=== PATIENT | female | born 1990 | race Caucasian/White ===

== ENCOUNTER 2022-12-03 10:20 | Outpatient (OUT) | payer OTHER, SELFPAY | END 2022-12-03 10:21 | disposition home or self-care (01) | LOC: PST 10:23 | PROVIDERS: PCP Family Medicine; Visit Provider Obstetrics & Gynecology | DX: Z01.818 Encounter for other preprocedural examination (principal); R87.613 High grade squamous intraepithelial lesion on cytologic smear of cervix (HGSIL) ==

== ENCOUNTER 2022-12-12 09:36 | Day surgery (SDC) | payer OTHER, SELFPAY ==
[2022-12-03 10:38] VITALS: BP 130/88; PULSE 74; RESP 14; TEMP 36.3; O2SAT 100; BMI 22.0
[2022-12-12] VITALS (11 sets, daily range): BP systolic 106–115; BP diastolic 63–78; PULSE 49–108; RESP 12–21; TEMP 36.1–36.3; O2SAT 95–100; BMI 21.9
[2022-12-12] MEDS: LACTATED RINGER'S SOLUTION 1,000 ML 50 ML IV (09:00)
[2022-12-12 10:11] LABS: Basophils Percent Auto 1.1 % (0.2-2.0); Eosinophils Absolute Auto 0.1 10^3/uL (0.0-0.7); Eosinophils Percent Auto 2.4 % (0.9-7.0); Hematocrit 41.6 % (36.0-48.0); Hemoglobin 14.1 g/dL (12.0-16.0); Immature Granulocytes Abs Auto 0.01 10^3/uL (0.00-0.03); Immature Granulocytes Pct Auto 0.3 % (0.0-0.5); Lymphocytes Absolute Auto 1.5 10^3/uL (1.2-3.8); Lymphocytes Percent Auto 40.6 % (20.5-60.0); Mean Corpuscular HGB Conc 33.9 g/dL (29.9-35.2); Mean Corpuscular Hemoglobin 29.3 pg (26.7-34.0); Mean Corpuscular Volume 86.3 fL (81.0-99.0); Mean Platelet Volume 8.8 fL (9.5-13.5); Monocytes Absolute Auto 0.2 10^3/uL (0.3-0.8); Monocytes Percent Auto 5.6 % (1.7-12.0); Neutrophils Absolute Auto 1.9 10^3/uL (1.4-6.5); Platelet Count 265 10^3/uL (150-450); Red Blood Count 4.82 10^6/uL (4.20-5.40); Red Cell Distribution Width 12.8 % (11.0-15.0); White Blood Count 3.7 10^3/uL (4.0-11.0)
[2022-12-12 11:02] LABS: HCG Quantitative <1 mIU/mL
--- NOTE | 2022-12-12 12:43 | P.ON_ITS ---
Brief Operative Note Date of procedure: 12/12/22 Pre-op diagnosis: cervical dysplasia Post-op diagnosis: same Procedure: NAME OF PROCEDURE: [leep ] PROCEDURE: Patient was taken back to the Operating Room where she was given general ane sthesia without difficulty. She was then placed in the dorsal lithotomy position. She was then prepped and draped in the normal sterile fashion. A weighted speculum was placed into the patient's vagina. The anterior lip of the cervix was identified and grasped with a single-tooth tenaculum. The patient's cervix was then copiously irrigated using vinegar.? Then, a Lugol Solution was also placed onto the patient's cervix which demonstrated increased uptake of the Lugol solution at the [3? ] o?clock and [?9 ] o?clock positions.? At that time, the LEEP portion of the procedure was performed, including both the [? 3] o?clock and [?9 ] o?clock positions. The ectocervix was sent out to Pathology. The patient's cervix was then coagulated using suction cautery. Excellent hemostasis was assured.? Monsel Solution was then placed onto the patient's cervix to help maintain adequate hemostasis. All instruments were removed from the patient's vagina. The anterior lip of the cervix demonstrated excellent hemostasis.? The patient tolerated the procedure well. Sponge, lap, and needle counts were correct x 2. The patient was taken to Recovery Room in stable condition. Anesthesia: CANDY Surgeon: Keshawn Tate Estimated blood loss (mL): 20 Pathology: other (ectocervical tissue) Condition: stable Disposition: PACU
[2022-12-12] MEDS: IODINE/POTASSIUM IODIDE 8 ML SOLUTION TOPICAL (13:11)
[2022-12-12] MEDS: FERRIC SUBSULFATE 8 ML SOLUTION TOPICAL (13:12)
--- NOTE | 2022-12-12 13:28 | PC.NURSE ---
Patient urinated , ate and drank while in phase I denies pain at this time for transfer to phase II.
== END 2022-12-12 13:52 | disposition home or self-care (01) ==
PROVIDERS: PCP Family Medicine; Visit Provider Obstetrics & Gynecology
PROC: (CPT 57522; principal; 2022-12-12 10:45)
DX: R87.613 High grade squamous intraepithelial lesion on cytologic smear of cervix (HGSIL) (principal)
CPT/HCPCS: 57522; 36415; 84702; 85025; 88307; J2704

== ENCOUNTER 2023-05-05 21:05 | Outpatient (REF) | payer OTHER, SELFPAY ==
[2023-05-12 08:07] LABS: HPV Aptima Negative (Negative); Pap IG (Image Guided) Note (.)
== END 2023-05-05 21:06 | disposition home or self-care (01) ==
LOC: LAB 21:05
PROVIDERS: PCP Family Medicine; Visit Provider Obstetrics & Gynecology
DX: R87.613 High grade squamous intraepithelial lesion on cytologic smear of cervix (HGSIL) (principal)
CPT/HCPCS: 87624; 87625; G0145

== ENCOUNTER 2023-10-20 20:51 | Outpatient (REF) | payer OTHER, SELFPAY ==
--- OUTSIDE RECORDS SUMMARY | 2023-10-20 20:59 | XMS_ITS | CCD ---
Author Organization [facility] Care Team Providers Care Pipe Finishing Supervisor Name Role Phone LAZARA ., DR CESAR Consulting Unavailable LAZARA ., DR CESAR Attending Unavailable LAZARA ., DR CESAR Admitting Unavailable LAZARA ., DR CESAR Consulting Unavailable LAZARA ., DR CESAR Attending Unavailable LAZARA ., DR CESAR Admitting Unavailable LAZARA ., DR CESAR Consulting Unavailable LAZARA ., DR CESAR Attending Unavailable LAZARA ., DR CESAR Admitting Unavailable LAZARA ., DR CESAR Consulting Unavailable ROBERTS, DR JESSICA Jaquez Primary Care Unavailable LAZARA ., DR CESAR Attending Unavailable LAZARA ., DR CESAR Admitting Unavailable LAZARA ., DR CESAR Consulting Unavailable ROBERTS, DR JESSICA Jaquez Primary Care Unavailable LAZARA ., DR CESAR Attending Unavailable LAZARA ., DR CESAR Admitting Unavailable ROBERTS, DR JESSICA Jaquez Primary Care Unavailable LAZARA ., DR CESAR Attending Unavailable LAZARA ., DR CESAR Admitting Unavailable KARASIK ., DR GOMES Consulting Unavailabl e ROBERTS, DR JESSICA Jaquez Primary Care Unavailable LAZARA ., DR CESAR Attending Unavailable LAZARA ., DR CESAR Admitting Unavailable ROBERTS, DR JESSICA Jaquez Primary Care Unavailable LAZARA ., DR CESAR Attending Unavailable LAZARA ., DR CESAR Admitting Unavailable LAZARA ., DR CESAR Consulting Unavailable ARMANDO, DR JESSICA Jaquez Primary Care Unavailable LAZARA ., DR CESAR Attending Unavailable LAZARA ., DR CESAR Admitting Unavailable TRUDY JULES Consulting Unavailable DEWAYNE AYALA Consulting Unavailable LAZARA ., DR CESAR Procedure Practitioner Unavail able ELISE ORTIZ Consulting Unavailable BIG SANDY, DR OLIVIA De La Paz Consulting Unavailable REQUEST, DR FREDIS LISTED Primary Care Unavaila ble LAZARA ., DR CESAR Attending Unavailable LAZARA ., DR CESAR Admitting Unavailable LAZARA ., DR CESAR Consulting Unavailable LAZARA ., DR CESAR Consulting Unavailable ARMANDO, DR JESSICA Jaquez Primary Care Unavailable LAZARA ., DR CESAR Attending Unavailable LAZARA ., DR CESAR Admitting Unavailable LAZARA ., DR CESAR Consulting Unavailable LAZARA ., DR CESAR Attending Unavailable LAZARA ., DR CESAR Admitting Unavailable ZIEBER, DR FCO Lynch Consulting Unavailable LAZARA ., DR CESAR Consulting Unavailable LAZARA ., DR CESAR Attending Unavailable LAZARA ., DR CESAR Admitting Unavailable FLORA PUENTE Attending Unavailable LAZARA, ARSENIO Attending Unavailable Problems Active Problems Problem Classification Problem Date Documented Date Episodic/Chronic Immunizations and screening for infectious disease (6 sources) Encounter for screening for human papillomavirus (HPV); Translations: [Encounter for screening for infections with a predominantly sexual mode of transmission] Onset: 10-24-2021 Episodic Menstrual disorders (4 sources) Irregular menstruation, unspecified; Translations: [IRREGULAR MENSTRUATION UNSPECIFIED] Onset: 10-19-2021 Chronic OB-related trauma to perineum and vulva (1 source) Second degree perineal laceration during delivery; Translations: [SECOND DEG PERINEAL LAC DUR DELIV] Onset: 05-21-2022 Episodic Other and delivery including normal (8 sources) Encounter for routine follow-up; Translations: [Encounter for full-term uncomplicated delivery] Onset: 12-19-2021 Episodic Other screening for suspected conditions (not mental disorders or infectious disease) (20 sources) Encounter for screening for malignant neoplasm of cervix; Translations: [Encounter for screening for Streptococcus B] Onset: 10-24-2021 Episodic Other upper respiratory infections (1 source) Streptococcal sore throat; Translations: [Streptococcal pharyngitis] 10-05-2023 Episodic Residual codes; unclassified (1 source) 39 weeks gestation of ; Translations: [39 WEEKS GESTATION OF ] Onset: 05-21-2022 Episodic Past or Other Problems Problem Classification Problem Date Documented Date Episodic/Chronic Other complications of (4 sources) Other specified related conditions, unspecified trimester; Translations: [OTH SPEC PREG RELATED COND UNS TRI] Onset: 02-26-2022 Episodic Other female genital disorders (1 source) Other specified noninflammatory disorders of vagina; Translations: [OTH SPEC NONINFLAMMATORY D/O VAGINA] Onset: 11-28-2021 Episodic Residual codes; unclassified (1 source) 28 weeks gestation of ; Translations: [28 WEEKS GESTATION OF ] Onset: 02-28-2022 Episodic Residual codes; unclassified (1 source) Unspecified blood type, Rh negative; Translations: [UNSPECIFIED BLOOD TYPE RH NEGATIVE] Onset: 03-01-2022 Episodic Residual codes; unclassified (1 source) 20 weeks gestation of ; Translations: [20 WEEKS GESTATION OF ] Onset: 12-25-2021 Episodic Results Test Name Value Interpretation Reference Range Facility No Panel InformationOrdered By: Manulea Corado on 10-05-2023 Quick Strep (POC) [facility] PAP ACOG PANEL 2: to on 08-14-2022 . . Normal [facility] Comment on above: Result Comment: Perf ormed at: WB Performed By: #### A FPMAT #### [facility] [address] [place] [address] Dr. Elda Caicedo Age Gdln ACOG Testing Normal [facility] Comment on above: Performed By: #### A FPMAT #### [facility] [address] [address] [address] Elda Caicedo DIAGNOSIS: Comment Abnormal [facility] Comment on above: Result Comment: EPIT HELIAL CELL ABNORMALITY. LOW GRADE SQUAMOUS INTRAEPITHELIAL LESION (LSIL). Performed at: WB Performed By: #### A FPMAT #### [facility] [address] [address] [address] Elda Caicedo Electronically signed by: Comment Normal [facility] Comment on above: Result Comment: Bossman Jimenez MD, Pathologist Performed at: WB Performed By: #### A FPMAT #### [facility] [address] [place] [address] Dr. Elda Caicedo Methodology: Comment [facility] Comment on above: Result Comment: This liquid based ThinPrep(R) pap test was screened with the use of an image guided system. Performed at: WB Performed By: #### A FPMAT #### [facility] [address] [place] [address] Dr. Elda Caicedo Note: Comment Normal [facility] Comment on above: Result Comment: The Pap smear is a screening test designed to aid in the detection of premalignant and malignant conditions of the uterine cervix. It is not a diagnostic procedure and should not be used as the sole means of detecting cervical cancer. Both false-positive and false-negative reports do occur. . Performed at: WB Performed By: #### A FPMAT #### [facility] [address] [place] [address] Dr. Elda Caicedo Pathologist Provided ICD10 Comment Normal [facility] Comment on above: Result Comment: [id number] Performed at: WB Performed By: #### A FPMAT #### [facility] [address] [place] [address] Dr. Elda Caicedo Performed by: Comment Normal [facility] Comment on above: Result Comment: Sriram Granados, Project Product Manager (ASCP) Performed at: CYTNE Performed By: #### A FPMAT #### [facility] [address] [place] [address] Dr. Elda Caicedo Reflex Criteria: Comment Normal [facility] Comment on above: Result Comment: The HPV DNA reflex criteria were not met with this specimen result therefore, no HPV testing was performed. . Performed at: WB Performed By: #### A FPMAT #### [facility] [address] [place] [address] Dr. Elda Caicedo Specimen adequacy: Comment Normal [facility] Comment on above: Result Comment: Sati sfactory for evaluation. Endocervical and/or squamous metaplastic cells (endocervical component) are present. Performed at: WB Performed By: #### A FPMAT #### [facility] [address] [place] [address] Dr. Elda Caicedo CBC AUTO DIFFon 05-02-2022 BASO # 0.0 103/ul Normal 0.0-0.1 [facility] Comment on above: Performed By: #### C BC #### [facility] [address] [place] [address] Dr. Elda Caicedo Basophils/100 WBC (Bld) 0.4 % Normal 0.2-2.0 [facility] Comment on above: Performed By: #### C BC #### [facility] [address] [place] [address] Dr. Elda Caicedo EO # 0.5 103/ul Normal 0.0-0.7 [facility] Comment on above: Performed By: #### C BC #### [facility] [address] [place] [address] Dr. lEda Caicedo Eosinophils/100 WBC (Bld) 4.6 % Normal 0.9-7.0 [facility] Comment on above: Performed By: #### C BC #### [facility] [address] [place] [address] Dr. Elda Caicedo Erythrocyte distribution width (RBC) [Ratio] 13.4 % Normal 11.0-15.0 [facility] Comment on above: Performed By: #### C BC #### [facility] [address] [place] [address] Dr. Elda Caicedo Hematocrit (Bld) [Volume fraction] 30.3 % Critically low 36.0-48.0 [facility] Comment on above: Performed By: #### C BC #### [facility] [address] [place] [address] Dr. Elda Caicedo Hemoglobin (Bld) [Mass/Vol] 10.0 g/dL Critically low 12.0-16.0 [facility] Comment on above: Performed By: #### C BC #### [facility] [address] [place] [address] Dr. Elda Caicedo IG # 0.11 10e3/ul Critically high 0.00-0.03 [facility] Comment on above: Performed By: #### C BC #### [facility] [address] [place] [address] Dr. Elda Caicedo IG % 1.1 % Critically high 0.0-0.5 [facility] Comment on above: Performed By: #### C BC #### [facility] [address] [place] [address] Dr. Elda Caicedo LYMPH # 1.2 103/ul Normal 1.2-3.8 [facility] Comment on above: Performed By: #### C BC #### [facility] [address] [place] [address] Dr. Elda Caicedo Lymphocytes/100 WBC (Bld) 11.7 % Critically low 20.5-60.0 [facility] Comment on above: Performed By: #### C BC #### [facility] [address] [place] [address] Dr. Elda Caicedo MANUAL DIFF REQ NO Normal [facility] Comment on above: Performed By: #### C BC #### [facility] [address] [place] [address] Dr. Elda Caicedo MCH (RBC) [Entitic mass] 29.0 pg Normal 26.7-34.0 [facility] Comment on above: Performed By: #### C BC #### [facility] [address] [place] [address] Dr. Elda Caicedo MCHC (RBC) [Mass/Vol] 33.0 g/dL Normal 29.9-35.2 [facility] Comment on above: Performed By: #### C BC #### [facility] [address] [place] [address] Dr. Elda Caicedo MCV (RBC) [Entitic vol] 87.8 fL Normal 81.0-99.0 [facility] Comment on above: Performed By: #### C BC #### [facility] [address] [place] [address] Dr. Elda Caicedo MONO # 0.6 103/ul Normal 0.3-0.8 [facility] Comment on above: Performed By: #### C BC #### [facility] [address] [place] [address] Dr. Elda Caicedo Monocytes/100 WBC (Bld) 5.5 % Normal 1.7-12.0 [facility] Comment on above: Performed By: #### C BC #### [facility] [address] [place] [address] Dr. Elda Caicedo NEUT # 7.7 103/ul Critically high 1.4-6.5 [facility] Comment on above: Performed By: #### C BC #### [facility] [address] [place] [address] Dr. Elda Caicedo Neutrophils/100 WBC (Bld) 76.7 % Critically high 43.0-75.0 [facility] Comment on above: Performed By: #### C BC #### [facility] [address] [place] [address] Dr. Elda Caicedo Platelet mean volume (Bld) [Entitic vol] 9.4 fL Critically low 9.5-13.5 [facility] Comment on above: Performed By: #### C BC #### [facility] [address] [place] [address] Dr. Elda Caicedo PLT 235 103/ul Normal 150-450 [facility] Comment on above: Performed By: #### C BC #### [facility] [address] [place] [address] Dr. Elda Caicedo RBC 3.45 106/ul Critically low 4.20-5.40 [facility] Comment on above: Performed By: #### C BC #### [facility] [address] [place] [address] Dr. Elda Caicedo WBC 10.0 103/ul Normal 4.0-11.0 [facility] Comment on above: Performed By: #### C BC #### [facility] [address] [place] [address] Dr. Elda Caicedo SCREENon 05-02-2022 SCREEN Negative Normal [facility] Comment on above: Performed By: #### F ETSCRN #### [facility] [address] [place] [address] Dr. Elda Caicedo CBC AUTO DIFFon 05-01-2022 BASO # 0.0 103/ul Normal 0.0-0.1 [facility] Comment on above: Performed By: #### A FPMAT #### [facility] [address] [place] [address] Dr. Elda Caicedo Basophils/100 WBC (Bld) 0.4 % Normal 0.2-2.0 [facility] Comment on above: Performed By: #### A FPMAT #### [facility] [address] [place] [address] Dr. Elda Caicedo EO # 0.1 103/ul Normal 0.0-0.7 [facility] Comment on above: Performed By: #### A FPMAT #### [facility] [address] [place] [address] Dr. Elda Caicedo Eosinophils/100 WBC (Bld) 1.5 % Normal 0.9-7.0 [facility] Comment on above: Performed By: #### A FPMAT #### [facility] [address] [place] [address] Dr. Elda Caicedo Erythrocyte distribution width (RBC) [Ratio] 13.2 % Normal 11.0-15.0 [facility] Comment on above: Performed By: #### A FPMAT #### [facility] [address] [place] [address] Dr. Elda Caicedo Hematocrit (Bld) [Volume fraction] 36.1 % Normal 36.0-48.0 [facility] Comment on above: Performed By: #### A FPMAT #### [facility] [address] [place] [address] Dr. Elda Caicedo Hemoglobin (Bld) [Mass/Vol] 12.1 g/dL Normal 12.0-16.0 [facility] Comment on above: Performed By: #### A FPMAT #### [facility] [address] [place] [address] Dr. Elda Ciacedo IG # 0.06 10e3/ul Critically high 0.00-0.03 [facility] Comment on above: Performed By: #### A FPMAT #### [facility] [address] [place] [address] Dr. Elda Caicedo IG % 0.8 % Critically high 0.0-0.5 [facility] Comment on above: Performed By: #### A FPMAT #### [facility] [address] [place] [address] Dr. Elda Caicedo LYMPH # 1.9 103/ul Normal 1.2-3.8 [facility] Comment on above: Performed By: #### A FPMAT #### [facility] [address] [place] [address] Dr. Elda Caicedo Lymphocytes/100 WBC (Bld) 26.1 % Normal 20.5-60.0 [facility] Comment on above: Performed By: #### A FPMAT #### [facility] [address] [place] [address] Dr. Elda Caicedo MANUAL DIFF REQ NO Normal [facility] Comment on above: Performed By: #### A FPMAT #### [facility] [address] [place] [address] Dr. Elda Caicedo MCH (RBC) [Entitic mass] 29.3 pg Normal 26.7-34.0 [facility] Comment on above: Performed By: #### A FPMAT #### [facility] [address] [place] [address] Dr. Elda Caicedo MCHC (RBC) [Mass/Vol] 33.5 g/dL Normal 29.9-35.2 [facility] Comment on above: Performed By: #### A FPMAT #### [facility] [address] [place] [address] Dr. Elda Caicedo MCV (RBC) [Entitic vol] 87.4 fL Normal 81.0-99.0 [facility] Comment on above: Performed By: #### A FPMAT #### [facility] [address] [place] [address] Dr. Elda Caicedo MONO # 0.5 103/ul Normal 0.3-0.8 [facility] Comment on above: Performed By: #### A FPMAT #### [facility] [address] [place] [address] Dr. Elda Caicedo Monocytes/100 WBC (Bld) 6.3 % Normal 1.7-12.0 [facility] Comment on above: Performed By: #### A FPMAT #### [facility] [address] [place] [address] Dr. Elda Caicedo NEUT # 4.7 103/ul Normal 1.4-6.5 [facility] Comment on above: Performed By: #### A FPMAT #### [facility] [address] [place] [address] Dr. Elda Caicedo Neutrophils/100 WBC (Bld) 64.9 % Normal 43.0-75.0 [facility] Comment on above: Performed By: #### A FPMAT #### [facility] [address] [place] [address] Dr. Elda Caicedo Platelet mean volume (Bld) [Entitic vol] 9.4 fL Critically low 9.5-13.5 [facility] Comment on above: Performed By: #### A FPMAT #### [facility] [address] [place] [address] Dr. Elda Caicedo PLT 302 103/ul Normal 150-450 [facility] Comment on above: Performed By: #### A FPMAT #### [facility] [address] [place] [address] Dr. Elda Caicedo RBC 4.13 106/ul Critically low 4.20-5.40 [facility] Comment on above: Performed By: #### A FPMAT #### [facility] [address] [place] [address] Dr. Elda Caicedo WBC 7.2 103/ul Normal 4.0-11.0 [facility] Comment on above: Performed By: #### A FPMAT #### [facility] [address] [place] [address] Dr. Elda Caiced[facility]17 SARS-CoV-2 (COVID-19) RNA SHARRI+probe Ql (Unsp spec) Not detected Normal NOT DETECTED [facility] Comment on above: Result Comment: When diagnostic testing is negative, the possibility of a false negative should be considered in the context of a patient's recent exposures and the presence of clinical signs and symptoms consistent with SARS-CoV-2. This test is not yet approved or cleared by the [place] FDA. When there are no FDA-approved or cleared tests available, and other criteria are met, FDA can make tests available under an emergency access mechanism called an Emergency Use Authorization (EUA). The EUA for this test is supported by the [place] of Health and Human Service's declaration that circumstances exist to justify the emergency use of in vitro diagnostics for the detection and/or diagnosis of the virus that causes COVID-19. This EUA will remain in effect for the duration of the COVID-19 declaration justifying emergency of IVDs, unless it is terminated or revoked by the FDA (after which the test may no longer be used). Performed By: #### A FPMAT #### [facility] [address] [place] [address] Dr. Elda Caicedo DRUG SCREEN RAPID (URINE)on 05-01-2022 AMP Negative Normal NEGATIVE [facility] Comment on above: Performed By: #### A FPMAT #### [facility] [address] [place] [address] Dr. Elda Caicedo BAR Negative Normal NEGATIVE [facility] Comment on above: Performed By: #### A FPMAT #### [facility] [address] [place] [address] Dr. Elda Caicedo BUP Negative Normal NEGATIVE [facility] Comment on above: Performed By: #### A FPMAT #### [facility] [address] [place] [address] Dr. Elda Caicedo BZO Negative Normal NEGATIVE [facility] Comment on above: Performed By: #### A FPMAT #### [facility] [address] [place] [address] Dr. Elda Caicedo TERE Negative Normal NEGATIVE [facility] Comment on above: Performed By: #### A FPMAT #### [facility] [address] [place] [address] Dr. Elda Caicedo CUT-OFFS SEE BELOW Normal [facility] Comment on above: Result Comment: AMP (Amphetamine): 500ng/mL, BAR (Barbituates): 200 ng/mL, BZO (Benzodiazepines): 150 ng/mL, BUP (Buprenorphine): 10 ng/mL, TERE (Cocaine): 150 ng/mL, mAMP (Methamphetamine): 500 ng/mL, MTD (Methadone): 200 ng/mL, OPI (Opiates): 100 ng/mL, OXY (Oxycodone): 100 ng/mL, PCP (Phencyclidine): 25 ng/mL, PPX (Propoxyphene): 300 ng/mL, THC (Cannabinoids): 50 ng/mL, TCA (Trycyclic Antidepressants): 300 ng/mL Performed By: #### A FPMAT #### [facility] [address] [place] [address] Dr. Elda Caicedo DRUG CUT HEADER DRUG CLASS TEST SYSTEM CUT-OFF CONCENTRATIONS ARE FOLLOWS: Normal [facility] Comment on above: Performed By: #### A FPMAT #### [facility] [address] [place] [address] Dr. Elda Caicedo mAMP Negative Normal NEGATIVE [facility] Comment on above: Performed By: #### A FPMAT #### [facility] [address] [place] [address] Dr. Elda Caicedo MTD Negative Normal NEGATIVE [facility] Comment on above: Performed By: #### A FPMAT #### [facility] [address] [place] [address] Dr. Elda Caicedo OPI Negative Normal NEGATIVE [facility] Comment on above: Performed By: #### A FPMAT #### [facility] [address] [place] [address] Dr. Elda Caicedo OXY Negative Normal NEGATIVE [facility] Comment on above: Performed By: #### A FPMAT #### [facility] [address] [place] [address] Dr. Elda Caicedo PCP Negative Normal NEGATIVE [facility] Comment on above: Performed By: #### A FPMAT #### [facility] [address] [place] [address] Dr. Elda Caicedo PPX Negative Normal NEGATIVE [facility] Comment on above: Performed By: #### A FPMAT #### [facility] [address] [place] [address] Dr. Elda Caicedo TCA Negative Normal NEGATIVE [facility] Comment on above: Performed By: #### A FPMAT #### [facility] [address] [place] [address] Dr. Elda Caicedo THC Negative Normal NEGATIVE [facility] Comment on above: Performed By: #### A FPMAT #### [facility] [address] [place] [address] Dr. 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 Furhter workup at [facility] Notes physicians request. ABO Rh Typing B Rh Negative Normal [facility] Comment on above: Performed By: #### T NS #### [facility] [address] [place] [address] Dr. Elda Caicedo GROUP B STREP CULTUREon 03-19 S. agalactiae Ag Ql (Unsp spec) Culture Observations: NEGATIVE FOR GROUP B STREPTOCOCCUS. Normal [facility] Comment on above: Performed By: #### C BC #### [facility] [address] [place] [address] Dr. Elda Caicedo TYPE AND SCREENon 02-26-2022 TYPE AND SCREEN Negative Normal [facility] Comment on above: Performed By: #### T NS #### [facility] [address] [place] [address] Dr. Elda Caicedo UA (CLEAN/CATCH) HELP DESK CONSULTANT/MICRO I F IND.on 02-26-2022 Bilirubin Ql (U) Negative Normal NEGATIVE [facility] Comment on above: Performed By: #### C BC #### [facility] [address] [place] [address] Dr. Elda Caicedo Clarity (U) CLEAR Normal CLEAR [facility] Comment on above: Performed By: #### C BC #### [facility] [address] [place] [address] Dr. Elda Caicedo Color (U) LT. YELLOW Normal YELLOW [facility] Comment on above: Performed By: #### C BC #### [facility] [address] [place] [address] Dr. Elda Caicedo Glucose Ql (U) Negative Normal NEGATIVE [facility] Comment on above: Performed By: #### C BC #### [facility] [address] [place] [address] Dr. Elda Caicedo Hemoglobin Ql (U) Negative Normal NEGATIVE [facility] Comment on above: Performed By: #### C BC #### [facility] [address] [place] [address] Dr. Elda Caicedo Ketones Ql (U) TRACE Abnormal NEGATIVE [facility] Comment on above: Performed By: #### C BC #### [facility] [address] [place] [address] Dr. Elda Caicedo LEUKOCYTES Negative Normal NEGATIVE [facility] Comment on above: Performed By: #### C BC #### [facility] [address] [place] [address] Dr. Elda Caicedo Nitrite Ql (U) Negative Normal NEGATIVE [facility] Comment on above: Performed By: #### C BC #### [facility] [address] [place] [address] Dr. Elda Caicedo pH (U) 6.0 [pH] Normal 5-9 [facility] Comment on above: Performed By: #### C BC #### [facility] [address] [place] [address] Dr. Elda Caicedo SPEC GRAVITY 1.010 Normal 1.005-<=1.025 [facility] Comment on above: Performed By: #### C BC #### [facility] [address] [place] [address] Dr. Elda Caicedo UA PROTEIN Negative Normal NEGATIVE/ TRACE [facility] Comment on above: Performed By: #### C BC #### [facility] [address] [place] [address] Dr. Elda Caicedo UR MICRO IND NOT INDICATED Normal [facility] Comment on above: Performed By: #### C BC #### [facility] [address] [place] [address] Dr. Elda Caicedo Urobilinogen Qn (U) 0.2 {Nathan'U}/dL Normal 0.2 - 1. 0 [facility] Comment on above: Performed By: #### C BC #### [facility] [address] [place] [address] Dr. Elda Caicedo GLUCOSE - 1HRon 02-15-2022 Glucose [Mass/Vol] 135 mg/dL Critically high 74-106 [facility] Comment on above: Performed By: #### G LU1HR #### [facility] [address] [place] [address] Dr. Elda Caicedo HEMOGRAM AND PLATELon 2021 Hematocrit (Bld) [Volume fraction] 34.1 % Critically low 36.0-48.0 [facility] Comment on above: Performed By: #### A FPMAT #### [facility] [address] [place] [address] Dr. Elda Caicedo Hemoglobin (Bld) [Mass/Vol] 11.5 g/dL Critically low 12.0-16.0 [facility] Comment on above: Performed By: #### A FPMAT #### [facility] [address] [place] [address] Dr. Elda Caicedo MCH (RBC) [Entitic mass] 31.3 pg Normal 26.7-34.0 [facility] Comment on above: Performed By: #### A FPMAT #### [facility] [address] [place] [address] Dr. Elda Caicedo MCHC (RBC) [Mass/Vol] 33.7 g/dL Normal 29.9-35.2 [facility] Comment on above: Performed By: #### A FPMAT #### [facility] [address] [place] [address] Dr. Elda Caicedo MCV (RBC) [Entitic vol] 92.7 fL Normal 81.0-99.0 [facility] Comment on above: Performed By: #### A FPMAT #### [facility] [address] [place] [address] Dr. Elda Caicedo PLT 233 103/ul Normal 150-450 [facility] Comment on above: Performed By: #### A FPMAT #### [facility] [address] [place] [address] Dr. Elda Caicedo RBC 3.68 106/ul Critically low 4.20-5.40 [facility] Comment on above: Performed By: #### A FPMAT #### [facility] [address] [place], [place] [id number] Dr. Elda Caicedo WBC 5.5 103/ul Normal 4.0-11.0 [facility] Comment on above: Performed By: #### A FPMAT #### [facility] [address] [place], [place] [id number] Dr. Elda Caicedo Consent Formson 01-03-2022 Consent Forms [id number] #[id number] [facility] US PREG ANATOMY SINGLEon US PREG ANATOMY SINGLE EXAMINATION: US P REG ANATOMY SINGLE HISTORY: anatomy study COMPARISON: No relevant comparison available. TECHNIQUE: Transabdominal sonographic examination was performed for obstetrical and evaluation. FINDINGS: Number: 1 Heart Rate: 154.0 bpm H.B. /min Amniotic Fluid Volume: Subjectively normal position: Transverse, head to the maternal right Placental Location: Anterior. Grade 0. Placental edge 4.5 cm from the os Cervix Length: 4.1 cm, closed Normally visualized anatomy: Cerebellum, choroid plexus, cisterna magna, lateral cerebral ventricles, orbits, midline falx, hard palate, four-chamber heart, RVOT, LVOT, stomach, kidneys, bladder, umbilical cord insertion into the abdomen, three-vessel cord, cervical spine, thoracic spine, lumbar spine, sacral spine, right upper extremity, left upper extremity, right lower extremity, left lower extremity Suboptimally visualized anatomy: None Abnormal: Mild renal pelviectasis, felt to be within normal limits BIOMETRY: BPD: 5.0 cm 21 weeks 1 days , 68% HC: 18.7 cm 21 weeks 0 days, 55% AC: 16.5 cm 21 weeks 4 days, 70% FL: 3.6 cm 21 weeks 3 days, 68% EFW:424.0 grams; 15 ounces, 83% FL/AC: 22.0 FL/BPD: 72.3 HC/AC: 1.1 GESTATIONAL AGE: Age by EDC: 20 weeks 5 days MICHEL by EDC: 05/08/2022 Age by current US: 21 weeks 2 days MICHEL by current US: 05/04/2022 IMPRESSION: Normal anatomy scan *Reference: [employer] Practice Guideline for the performance of Obstetric Ultrasound Examinations, February 15, 2007. Electronically authenticated by: OLIVIA LOTT Date: 2021-12-24 18:38 Normal [facility] AFP MATERNAL FOR SPINA BIFID Aon 12-23-2021 AFP MoM 1.56 Normal [facility] Comment on above: Performed By: #### A FPMAT #### [facility] [address] [address] [address] Elda Caicedo AFP Value 92.5 ng/mL Normal [facility] Comment on above: Performed By: #### A FPMAT #### [facility] [address] [id number] [address] Elda Caicedo AFP, Serum for Spina Bifida Report Normal [facility] Comment on above: Performed By: #### A FPMAT #### [facility] [address] [address] [address] lEda Caicedo Comment Comment Normal [facility] Comment on above: Result Comment: Marlo Blackwell, Ph.D., [facility] Director . References: Available Upon Request. . Multiples Of Median Cutoffs For AFP Elevations Dyer 2.5 Black 2.8 IDD 2.0 Twins 4.5 Abbreviation Definitions IDD - Insulin Dep Diabetes OSBR - Open Spina Bifida Risk . For further inquiries contact [facility] at [phone]. . This test was developed and its performance characteristics determined by [employer]. It has not been cleared or approved by the Food and Drug Administration. Performed By: #### A FPMAT #### [facility] [address] [address] [address] Elda Briscoe Age Collection Date 19.[address] [facility] Comment on above: Performed By: #### A FPMAT #### [facility] [id number] [address] Elda Caicedo Gestat, Age Based on MICHEL [facility] Comment on above: Result Comment: 04/18 Recalculations are not recommended when gestational dating by LMP and ultrasound are within 10 days. Performed By: #### A FPMAT #### [facility] [address] [address] [address] Elda Caicedo Insulin Dep Diabetes No Normal [facility] Comment on above: Performed By: #### A FPMAT #### [facility] [address] [address] [address] Elda Caicedo Interpretation Comment Normal [facility] Comment on above: Result Comment: Inte rpretation: Screen Negative . This result is screen negative for OSB. The AFP MoM calculated is based on the gestational age provided. MS-AFP can identify up to 80% of open neural tube defects. Closed neural tube defects and some open defects may not be detected by this test. This test does not screen for Down Syndrome or Trisomy 18. If screening for Down Syndrome or Trisomy 18 is desired, contact [employer] [facility] to discuss available options. The [employer] recommends amniocentesis be offered to women age 35 and older. Performed By: #### A FPMAT #### [facility] [address] [place] [address] Dr. Elda Caicedo [age] Normal [facility] Comment on above: Performed By: #### A FPMAT #### [facility] [address] [place] [address] Dr. Elda Caicedo Multiple Gestation No Normal [facility] Comment on above: Performed By: #### A FPMAT #### [facility] [address] [place] [address] Dr. Elda Caicedo OSBR Risk 1 IN 2331 Normal [facility] Comment on above: Performed By: #### A FPMAT #### [facility] [address] [address] [address] Elda Caicedo PDF . Normal [facility] Comment on above: Performed By: #### A FPMAT #### [facility] [address] [place] [address] Dr. Elda Caicedo Race Normal [facility] Comment on above: Performed By: #### A FPMAT #### [facility] [address] [place] [address] Dr. Elda Caicedo Test Results: Negative Normal [facility] Comment on above: Performed By: #### A FPMAT #### [facility] [address] [place] [address] Dr. Elda Caicedo Pap IG,rfx Aptima HPV all pt hon 12-05-2021 . . Normal [facility] Comment on above: Performed By: #### A FPMAT #### [facility] [address] [place] [address] Dr. Elda Caicedo DIAGNOSIS: Comment Abnormal [facility] Comment on above: Result Comment: EPIT HELIAL CELL ABNORMALITY. ATYPICAL SQUAMOUS CELLS OF UNDETERMINED SIGNIFICANCE (ASC-US). Performed By: #### A FPMAT #### [facility] [address] [place] [address] Dr. Elda Caicedo Electronically signed by: Comment Normal [facility] Comment on above: Result Comment: Rosalinda Browning MD, Pathologist Performed By: #### A FPMAT #### [facility] [address] [place] [address] Dr. Elda Caicedo HPV Aptima Negative Normal Negative [facility] Comment on above: Result Comment: This nucleic acid amplification test detects fourteen high-risk HPV types (16,18,31,33,35,39,45,51,52,56,58,59,66,68) without differentiation. Performed By: #### A FPMAT #### [facility] [address] [place] [address] Dr. Elda Caicedo Methodology: Comment Normal [facility] Comment on above: Result Comment: This liquid based ThinPrep(R) pap test was screened with the use of an image guided system. Performed By: #### A FPMAT #### [facility] [address] [place] [address] Dr. Elda Caicedo Note: Comment Normal [facility] Comment on above: Result Comment: The Pap smear is a screening test designed to aid in the detection of premalignant and malignant conditions of the uterine cervix. It is not a diagnostic procedure and should not be used as the sole means of detecting cervical cancer. Both false-positive and false-negative reports do occur. . Performed By: #### A FPMAT #### [facility] [address] [place] [address] Dr. Elda Caicedo Pathologist Provided ICD10 Comment Normal [facility] Comment on above: Result Comment: [id number]. [id number] Performed By: #### A FPMAT #### [facility] [address] [place] [address] Dr. Elda Caicedo Performed by: Comment Normal [facility] Comment on above: Result Comment: Cind jeffrey Vera, Project Product Manager (ASCP) Performed By: #### A FPMAT #### [facility] [address] [place] [address] Dr. Elda Caicedo Recommendation: Comment Abnormal [facility] Comment on above: Result Comment: Sugg est follow up as clinically appropriate. Performed By: #### A FPMAT #### [facility] [address] [place] [address] Dr. Elda Caicedo Reflex Criteria: Comment Normal [facility] Comment on above: Result Comment: See below for HPV testing results. . Performed By: #### A FPMAT #### [facility] [address] [place] [address] Dr. Elda Caicedo Specimen adequacy: Comment Normal [facility] Comment on above: Result Comment: Sati sfactory for evaluation. No endocervical component is identified. Performed By: #### A FPMAT #### [facility] [address] [place] [address] Dr. Elda Caicedo CHLAMYDIA/GONOCOCCUS SHARRI (SW AB/URINE/PAPon 11-30-2021 Chlamydia trachomatis, SHARRI Negative Normal Negative [facility] Comment on above: Performed By: #### C BC #### [facility] [address] [place] [address] Dr. Elda Caicedo Neisseria gonorrhoeae, SHARRI Negative Normal Negative [facility] Comment on above: Performed By: #### C BC #### [facility] [address] [place] [address] Dr. Elda Caicedo VAGINITIS/VAGINOSIS DNA PROB Richard 11-29-2021 Dodie species Negative Normal Negative [facility] Comment on above: Performed By: #### V AGINT #### [facility] [address] [place] [address] Dr. Elda Caicedo Gardnerella vaginalis Negative Normal Negative [facility] Comment on above: Performed By: #### V AGINT #### [facility] [address] [place] [address] Dr. Elda Caicedo Trichomonas vaginalis Negative Normal Negative [facility] Comment on above: Performed By: #### V AGINT #### [facility] [address] [place] [address] Dr. Elda Caicedo HEP B SURFACE ANTIGEN SCREEN on 10-20-2021 HBsAg Screen Negative Normal Negative [facility] Comment on above: Performed By: #### C BC #### [facility] [address] [place] [address] Dr. Elda Caicedo HEPATITIS C VIRUS AB W/ REFL EX QUANTon 10-20-2021 HCV AB <0.1 Normal 0.0-0.9 [facility] Comment on above: Performed By: #### C BC #### [facility] [address] [place] [address] Dr. Elda Caicedo Interpretation: Comment Normal [facility] Comment on above: Result Comment: Nega tive Not infected with HCV, unless recent infection is suspected or other evidence exists to indicate HCV infection. Performed By: #### C BC #### [facility] [address] [place] [address] Dr. Elda Caicedo HIV 1 AND 2 WITH REFLEXon HIV Screen 4th Generation wRfx Non-Reactive Normal Non Reactive [facility] Comment on above: Result Comment: HIV Negative HIV-1/HIV-2 antibodies and HIV-1 p24 antigen were NOT detected. There is no laboratory evidence of HIV infection. Performed By: #### C BC #### [facility] [address] [place] [address] Dr. Elda Caicedo RPR QUANTon 10-20-2021 Rapid Plasma Reagin, Quant Non-Reactive Normal NonRea<1:1 [facility] Comment on above: Result Comment: Gerri tirado Note: This test does not meet current guidelines for screening and diagnosis of syphilis. This test is intended for following treatment response in patients being treated for syphilis infection. To screen for syphilis infection, a reflex cascade that includes both RPR and a treponema-specific assay should be utilized, such as Treponema pallidum (Syphilis) Screening [place] (140932) or Rapid Plasma Reagin (RPR) Test With Reflex to Quantitative RPR and Confirmatory Treponema pallidum Antibodies (836706). Performed By: #### A FPMAT #### [facility] [address] [place] [address] Dr. Elda Caicedo RUBELLA AB IGGon 10-20-2021 Rubella Antibodies, IgG 5.69 index Normal Immune >0.99 [facility] Comment on above: Result Comment: Non- immune <0.90 Equivocal 0.90 - 0.99 Immune >0.99 Performed By: #### C BC #### [facility] [address] [place] [address] Dr. Elda Caicedo CBC AUTO DIFFon 10-19-2021 BASO # 0.0 103/ul Normal 0.0-0.1 [facility] Comment on above: Performed By: #### C BC #### [facility] [address] [place] [address] Dr. Elda Caicedo Basophils/100 WBC (Bld) 0.5 % Normal 0.2-2.0 [facility] Comment on above: Performed By: #### C BC #### [facility] [address] [place] [address] Dr. Elda Caicedo EO # 0.1 103/ul Normal 0.0-0.7 [facility] Comment on above: Performed By: #### C BC #### [facility] [address] [place] [address] Dr. Elda Caicedo Eosinophils/100 WBC (Bld) 1.4 % Normal 0.9-7.0 [facility] Comment on above: Performed By: #### C BC #### [facility] [address] [place] [address] Dr. Elda Caicedo Erythrocyte distribution width (RBC) [Ratio] 12.8 % Normal 11.0-15.0 [facility] Comment on above: Performed By: #### C BC #### [facility] [address] [place] [address] Dr. Elda Caicedo Hematocrit (Bld) [Volume fraction] 39.1 % Normal 36.0-48.0 [facility] Comment on above: Performed By: #### C BC #### [facility] [address] [place] [address] Dr. Elda Caicedo Hemoglobin (Bld) [Mass/Vol] 13.2 g/dL Normal 12.0-16.0 [facility] Comment on above: Performed By: #### C BC #### [facility] [address] [place] [address] Dr. Elda Caicedo IG # 0.02 10e3/ul Normal 0.00-0.03 [facility] Comment on above: Performed By: #### C BC #### [facility] [address] [place] [address] Dr. Elda Caicedo IG % 0.5 % Normal 0.0-0.5 [facility] Comment on above: Performed By: #### C BC #### [facility] [address] [place] [address] Dr. Elda Caicedo LYMPH # 1.5 103/ul Normal 1.2-3.8 [facility] Comment on above: Performed By: #### C BC #### [facility] [address] [place] [address] Dr. Elda Caicedo Lymphocytes/100 WBC (Bld) 34.9 % Normal 20.5-60.0 [facility] Comment on above: Performed By: #### C BC #### [facility] [address] [place] [address] Dr. Elda Caicedo MANUAL DIFF REQ NO Normal [facility] Comment on above: Performed By: #### C BC #### [facility] [address] [place] [address] Dr. Elda Caicedo MCH (RBC) [Entitic mass] 29.9 pg Normal 26.7-34.0 [facility] Comment on above: Performed By: #### C BC #### [facility] [address] [place] [address] Dr. Elda Caicedo MCHC (RBC) [Mass/Vol] 33.8 g/dL Normal 29.9-35.2 [facility] Comment on above: Performed By: #### C BC #### [facility] [address] [place] [address] Dr. Elda Caicedo MCV (RBC) [Entitic vol] 88.5 fL Normal 81.0-99.0 [facility] Comment on above: Performed By: #### C BC #### [facility] [address] [place] [address] Dr. Elda Caicedo MONO # 0.3 103/ul Normal 0.3-0.8 [facility] Comment on above: Performed By: #### C BC #### [facility] [address] [place] [address] Dr. Elda Caicedo Monocytes/100 WBC (Bld) 5.7 % Normal 1.7-12.0 [facility] Comment on above: Performed By: #### C BC #### [facility] [address] [place] [address] Dr. Elda Caicedo NEUT # 2.5 103/ul Normal 1.4-6.5 [facility] Comment on above: Performed By: #### C BC #### [facility] [address] [place] [address] Dr. Elda Caicedo Neutrophils/100 WBC (Bld) 57.0 % Normal 43.0-75.0 [facility] Comment on above: Performed By: #### C BC #### [facility] [address] [place] [address] Dr. Elda Caicedo Platelet mean volume (Bld) [Entitic vol] 8.7 fL Critically low 9.5-13.5 [facility] Comment on above: Performed By: #### C BC #### [facility] [address] [place] [address] Dr. Elda Caicedo PLT 272 103/ul Normal 150-450 [facility] Comment on above: Performed By: #### C BC #### [facility] [address] [place] [address] Dr. Elda Caicedo RBC 4.42 106/ul Normal 4.20-5.40 [facility] Comment on above: Performed By: #### C BC #### [facility] [address] [place] [address] Dr. Elda Caicedo WBC 4.4 103/ul Normal 4.0-11.0 [facility] Comment on above: Performed By: #### C BC #### [facility] [address] [place] [address] Dr. Elda Caicedo CULTURE URINEon 10-19-2021 CULTURE URINE Culture Observations: LIGHT GROWTH OF MIXED GENITAL TONYA. NO POTENTIAL PATHOGENS SEEN. Normal [facility] Comment on above: Performed By: #### U RCX #### [facility] [address] [place] [address] Dr. Elda Caicedo GLYCOHEMOGLOBIN A1Con 2021 ADA RECOMMENDATION SEE BELOW Normal [facility] Comment on above: Result Comment: ADA RECOMMENDED LIMIT 4.0 - 6.0 ADA THERAPEUTIC TARGET < 7.0 ACTION SUGGESTED > 7.0 Performed By: #### A 1C #### [facility] [address] [place] [address] Dr. Elda Caicedo Glucose [Mass/Vol] 100 mg/dL Normal [facility] Comment on above: Performed By: #### A 1C #### [facility] [address] [place] [address] Dr. Elda Caicedo HbA1c (Bld) [Mass fraction] 5.1 % Normal 4.5-6.2 [facility] Comment on above: Performed By: #### A 1C #### [facility] [address] [place] [address] Dr. Elda Caicedo TYPE AND SCREENon 10-19-2021 TYPE AND SCREEN Negative Normal [facility] Comment on above: Performed By: #### C BC #### [facility] [address] [place] [address] Dr. Elda Caicedo US PREG TVon 10-03-2021 US PREG TV EXAMINATION: US PREG TV HISTORY: Missed period COMPARISON: No relevant comparison available. FINDINGS: GESTATIONAL SAC: Present and normal appearing. POLE: Present and normal appearing. YOLK SAC: Present. CARDIAC: Present. UTERUS: Normal size and appearance. OVARIES: Right: Normal. Left: Normal. CERVIX: 4.3 cm in length and closed. CUL-DE-SAC: Normal. OTHER: None. AGE BY LMP: 9 weeks, 0 days MICHEL BY LMP: 05/08/2022 AGE BY US CRL: 9 weeks, 4 days MICHEL BY US CRL: 05/04/2022 IMPRESSION: 1. Single live intrauterine . Electronically authenticated by: FCO WYLIE Date: 2021-10-03 14:37 Normal [facility] Coding Summaryon 08-26-2021 Coding Summary HTMLBase 64 TqhvfkrlYPm1rVf+PGhl YWQ+ZD2IZGChC96wdLGv jS7TL1tRKS5LGQVDWHQF KY4KIT1yxPG9XPkdU7Ks biAv QkfojUCdJS71LXl2VZO7 pSehSYnyjB9obDMjF5g9 YbMiVR08tM12VFhmRDJf TdL6LdHfyiszsICf T7qkLbYphRWqZwl+PHRh YmxlIHdpZHRoPScxMDAl PbVrvWnjPO4xHo3zREXc LWNvbGxhcHNlOiBj k7pjKWFhOQnzUB1bmZxa S2VjmFG9XIKke2t2Jq08 dHI+JZLxDCT7mAvxYUlf v073KrOnb3foKYS0 qKYnCXztDSM0T18fe8F1 OIWhGBVmLJB9bUS4bE1b yBkxvqnaC8PhbOAhVcS3 VGE3nUFicY0jzAku jpaovL0fGxw+B34TGG1F QHBYSB3WGrr2K7TrMugz dHI+VI92RMBwNQ73fYKo sXAia0oxuXg5QcWd JYJaORH4iLodVExdy4Yy XPFuW68nxTHwl4L0VSHc lIbmkBKeApWmwMF5yP7t ORvdqhmtd2kdoqlb Hehfr1vgki67tN17Q90v FGekJHUlRZR9RCQaWWHl sZylbt3wuD0gQg0+IDxj r8ngu7nkrKh2BlLq FEMatoHcmFihFCR0g0Ez Jw72K9DarLrjq1IkTub1 ks62tFQdd9V8vME6NAzi XUKraT4vDKmwRvC5 WMLfEtWnxY77sDVlMHuc Ma6xeZjaeLjdEU0vUDSz qdkqWAHrtJ5cHYOjxOGi aMrbUM4hHGEfbvvg o585RjXbBIG3SFQjmCNr P8XouL8uMxTlPXFkYJRp G4RhnCZsTQbeT465JZnv JyP4SBFmqlFvP9Qu FOYsoShkNbZ1s4T8Rw3O k1TdefnnCWR0FZpbIBR6 EiFiXxYdFnD5O9KhQxg9 YGOsoHehLU3rX2Wv WGSjlbsckxxvqJV6WWRq BHEsoN97uABeRApvAi9d u4N7x310VBTnCPQtxP64 Up9vmObtEOVjqVVH nC7bbtfnh8clprjpGpNz BYJeHKb2ZDq9FPXlnIag BqJwGYQ5DxW5PSO9xUAz fD3edSvkrbqwvB7q Oyc+R63geQ2cSLT9DVF8 nsjlPYPbczIwPI99BO48 J9WmBinihSQoyKG+PGRp snKnwYqhHH8dHcEv s5jfx8RyKFnxN8QmRIUr VYggKix0KCQcNKT4rUQ2 hT3uKNQfDWxhx8U9mNS0 T2WlyuXlkd7nr4by NKPvGTaiM78fcDVle3K1 EIYzaBK7DHVmpQbvXjDw eC78Elf+LOBabTmki4Pp Jhqgc6ptc1nucAm4 IjMwJSIgdmFsaWduPSJ0 w9BzSn62U55vVQknAOHv FFDuABYjOTVfaBfugc7s eG9uQz8+PGNvbCB3 pGF9vA0wUHIeKdI1ZNia U428UvAowRCyTmyhg6kd z9pefAl0AoAwHUTzovMd nIobGJB3f3NbJs77 V09gTUtqMERaEYUxDXJh PCAtnEfhns2nwE2vFq2+ XH1me5lxgl34jN94rHX+ ODGwGYJ0jYppDLxn APYcwH8aRIdgEcK0OGCr UcKtrB35gXSfDSpkKr0n fFnmvJtbQZ6iNEQpaolb q782UkMmf1gpRVUb oYLbKUitVDM3C56jx0D7 CHXnIAPeEUW8dHO6yK9z bGlnbjogbGVmdDsgdmVy lSknZYusORuaD961 IHRvcDsnPlBhdGllbnQg MgZpWHt3M8UmXbs7REOq mWoyVF0taNMuXQzzKq8s rSytjIgcQR4pKVOv wsyke440OaEct8nlNJAo zBYrCBthEAV6V13at3X4 OIQtTSCvPPQ0lGL6wO6x bGlnbjogbGVmdDsg brJbrNdcHFyiBXyzO710 IHRvcDsnPkJpcnRoIERh vIN9ZM63CS14yEKfp8Q8 xWP7W5SaGJIeqkll adwdyYW2CTZbJOEpwN89 Ed5jkTriCc0jQHFzIMN2 LEVckMFnU9BoyE7eOgBh QSFgXXXvD2HjqHWy PAnvM477PGwgSdP2TZGu ebSkF7CuEOGlkPlxAkG2 z7O7Rf7AM3R9OS40YH34 aKRvj9P2vCT1U3Bn LBTbdmuhhpdijAF9EXZv IBAqkM25Mk4agFgjQs4d IEXuQPT2VVOcwLMbT5Hv tK2yYhDoSNUxUOBm S6DpbOJcZGyiI839KGzd LvF0UZHzqlLlV9FgQBVk oBtzGqO1n0C9Fj2TCMb6 OK03AQ81vAFnl6U5 nCQ6C8IxKFIrtbwiideg hOB7IQMhVUYxlE75Kv6x kOemXz1qBEWbNEJ7DHGf gURdG3YivM0hUrXs JLOwFMKbO9JaxSEnEZun F396AFinPhM8KWKvasNx F7XtQILczNexAeO1i2D6 Rm8ULNCqFO16VIN2 kFN9KA95YV53H9GiXkvm dGFibGU+PHRhYmxlIHdp ZHRoPScxMDAlJyBzdHls AU4wUy0gXWBfBAHp tYjtgLYxCvQqf1kjPKZd LJawJC4sbGjiH0UmlVP9 ZHYgm3b1Hi98K49nL4Rs dXA+QNOedFN2kKA6 fT4zGeAdIxJ6HXcbI569 HtZttVVtIvnos0vqi1ad eAe2RdX5DEWjxgAllZqe MWQ8p8TdFq47T91t IHdpZHRoPSIxNSUiIHZh kYplez0afB6sGq6+PGNv bYX8hOS2gT9bIcMuUiX9 VTucR914PwEheNPg Ciwsy9nka3qacOd6GzDa NPLozmQyhCxaMHF4w5Bl Qk58K5WggJtwz6ZjLmw6 um90lABmo7N8gWE0 K9JcAOGezglqcWKrxXev BK4sBDPwtyvlKVMliK7o ZUObV6w5MiWpGfH7KVvi H9XbqaE3VRUrqQMq WPylXOW9O56ez9E3RGDv GDMyHLL9bFU5nD7hlPli bjogbGVmdDsgdmVydGlj LNhkKEszQ140VWVg cVoiSGNrjO4kWRTnoWQy fPnkQK6cAFObjqdwXzUU GGVPAmBNKXdeCH6RVyxV DJVMLZZELU21IQ24 yWWeb7Y8hMB9K8BpGOJm srktonihiEN5GLRgGSEs qE03kGIeZGsvUd2vd4R7 r053SKBaORKhgJ51 Wb6bpWqhQTRhfKAQmL0a ztdny3tsuiiaPnFqQBJj RAe2IRy1BTZakOcnZtBw PHU1NlW0JYM8lFTe vF9dhKzctdpqtA9oPit+ BUsyAHNwAZl8LxlxpSR+ JTJsSAB6oHfsVLvpEVXw mO6zKCFxA1d0RlRm VaH8QVuaP0CzQSHjpfso Wc37hX9lZfVnSqE5BLfh G1TtpoL1GZAomVPtZMkc TAW1A20wu8V0BMRq INUxDCD3xWI7rE9huPfi bjogbGVmdDsgdmVydGlj OYenEYfaL228SGHwoJld RiV7AGfxHCTuBH02 ZV72gJKwv5X1zAX2S9Li HALmyavyrpepkRM4PLEn EKJweR64vXPqWApkCj6c v5K9k347PQLcKBRe mA25Ac4ifZxeUDXlsIGL jK6eqlxym5pwjyqrQrMm PBVvDOy0EKg9GAPwnSps AbPhNSP8MkJ9TEY8 pSFkbL3mhImivdvbfA5a Oyc+QzPAQGdJAK69FK03 xNXra9N9zBD5S9YtMVPj ineqlwypxXL4BMWg FMIpoA28zAFuKBqtJs4w n0V9f902UYPtKCFjlT21 Gm8cxKceXHQmxQVMsD9r sccpp5mxqxraMsIj EXEiHGb2JKb7YEEqqLeu FmAsNFA3GdY7CWO6pLTj bV3djHwhbddihI8jKpn+ T5P2Q7GkTpqihNJ+ YD90HTAzOK71fOEijBNp y0wlqAf2PdLcZHLkIYZ0 aQfwPPlqa4CsYLZrK22o iLMfp3N5NSTpxAsy mIOiYqZgzGM9xY4uINyx xqgvw6cipwcfMzvyj9qe il71oF05J19hJWlmSFBj PSIzMCUiIHZhbGln dl0uzM8iKd8+PGNvbCB3 nXG2rW9bXoYnHiA4EWfz Y413AlAsoWKaShyiz3ek u3nxeRl4WaKbTEZz rvNaaWqsGVP8b8OjYk16 B50oESahGURqMIUzAIPx RJTvqOolqm8maQ2nKf0+ QL6jy9oayg92gM95 dHI+BTEvCKI9nZijZPys AGCxyY6dHMlmLmJ3AAYi KyIxfQ45xKLvWLgcBb4b mIeoyLfaGZ9gUDRd xspvl013LwEoc4ocBTQk rULkYWmoGLI5C16ho3L7 QYWoXACoOQF2fYO4yT2x bGlnbjogbGVmdDsg cbUhnLakEUmdPJucS221 PUQkqQxqRxQfjDEqT4ip qwADOM4rOxxxlXB+PHRk QWA2eEayOEiiJHOh qC1nCCMtC4v0GjLbJzX2 GFczD9UwsbJ0JMRbtCOm MPEguZQCyY4wxixkn1nz cjogIzAwMDAwMDt0 HUl3KJWrpJiuGoEaBVK1 TgO3XIJ3kSXrvW2ivGsj dsptuD2kKfm+RklOOjwv dGQ+LEOiWPA7nYkq GKoqAUTbeU3bSTTpX1z5 JhEzFoH3KQktJ3TsknK4 NQElwYOtJPCzdDQMuQ8m cryec7lnsidpEkQz MNLhMIy6FOm3GBEqoKso ZlXyNYL9EhE3MLN9zHVe nU7zkVhanbkozE9oSyn+ TVJOOjwvdGQ+PHRk YUN1hDmlZDtlGYXomO0o GOBcE9h7AlGlSmF7PUnf K0PjaiM5FULigTHbEDBd kSCKiH4cksvpi7bq uzqhUrRvBKZaNRi1BLw7 EBYyaSbeZmQnNWB3GcV7 QBF8fHMrpC1hsFgthaub mV5nKke+GKB8LYN5 TS98NQ89R2PgKmaluJBn bGU+PHRhYmxlIHdpZHRo KLpwVJLoFkPifOucGE7s Gi4cCXCfCXYhdHub cHN (more content not included)... Normal [facility] ED Clinical Summaryon 2021 ED Clinical Summary [facility] ? Urgent Care [address] [place], [place] [id number] Clinical Summary PERSON INFORMATION Name: JODI COLORADO Age: 30 Years Sex: FEMALE : 1990 MRN: Acct#: Visit Reason: UC - Eye Redness; UC - Eye Redness; RIGHT EYE IRRITATION Arrival: 08/19/2021 12:52:37 Discharge: 08/19/2021 13:50:00 LOS: 000 00:58 Check In: 08/19/2021 12:52:37 Checkout: 08/19/2021 13:50:00 Address: [address] [place], [place] [address] [address] PCP: Jessica Roberts MD PROVIDER INFORMATION Provider Role Assigned Unassigned Lesvia Hills MAIL CENSOR Nurse 08/19/2021 12:54:31 Ko Desir ED PA 08/19/2021 12:57:58 VITALS INFORMATION Vital Sign Triage Latest Temperature Tympanic Temperature Temporal Artery Pulse Rate O2 Sat 98 % 98 % Respiratory Rate Blood Pressure /68 mmHg /68 mmHg MEDICAL INFORMATION Medications Given: Allergy Information: No Known Medication Allergies PHYSICIAN DOCUMENTATION DISCHARGE INFORMATION: Discharge Disposition: Home Discharge Location: Home PATIENT EDUCATION INFORMATION Instructions: Bacterial Conjunctivitis, Adult, Crpt-dd-Vilf Follow-Up: With: Address: When: Jessica Roberts [address] [place] [address], [place] [address] Business (1) Comments: Begin on the the antibiotic drops take as written until gone If the symptoms persist or fail to resolve call to schedule follow up with Dr. Quezada glass calibrator [phone] office located at [address] [place] [address], otherwise follow-up with your primary care provider in 3-5 days Exercise good hygiene such as frequent handwashing, wiping off door handles Try not to touch the eye or near the eye. Can wash around the eye with warm water and no tears shampoo 3-4 times daily DIAGNOSIS: Right conjunctivitis Patient Understands: Yes - Patient/family/careg iver verbalizes understanding of instructions given Comment: Normal [facility] ED Patient Summaryon 022 ED Patient Summary [facility] ? Urgent Care [address] [place] [address] PATIENT DISCHARGE INSTRUCTIONS Patient Information Name: JODI COLORADO Age: 30 Years Date of : 1990 Reason For Visit: UC - Eye Redness; UC - Eye Redness; RIGHT EYE IRRITATION Arrival Time: 08/19/2021 12:52:37 Primary Care Physician: Jessica Roberts MD Attending Physician: Ko Desir Comment: Patient Education With: Address: When: Jessica Roberts [address] [place] [id number] Business (1) Comments: Begin on the the antibiotic drops take as written until gone If the symptoms persist or fail to resolve call to schedule follow up with Dr. Quezada glass calibrator [phone] office located at [address] [place] [address], otherwise follow-up with your primary care provider in 3-5 days Exercise good hygiene such as frequent handwashing, wiping off door handles Try not to touch the eye or near the eye. Can wash around the eye with warm water and no tears shampoo 3-4 times daily Bacterial Conjunctivitis, Adult Bacterial conjunctivitis is an infection of your conjunctiva. This is the clear membrane that covers the white part of your eye and the inner part of your eyelid. This infection can make your eye: ? Red or pink. ? Itchy. This condition spreads easily from person to person (is contagious) and from one eye to the other eye. What are the causes? ? This condition is caused by germs (bacteria). You may get the infection if you come into close contact with: ? A person who has the infection. ? Items that have germs on them (are contaminated), such as face towels, contact lens solution, or eye makeup. What increases the risk? You are more likely to get this condition if you: ? Have contact with people who have the infection. ? Wear contact lenses. ? Have a sinus infection. ? Have had a recent eye injury or surgery. ? Have a weak body defense system (immune system). ? Have dry eyes. What are the signs or symptoms? ? Thick, yellowish discharge from the eye. ? Tearing or watery eyes. ? Itchy eyes. ? Burning feeling in your eyes. ? Eye redness. ? Swollen eyelids. ? Blurred vision. How is this treated? ? Antibiotic eye drops or ointment. ? Antibiotic medicine taken by mouth. This is used for infections that do not get better with drops or ointment or that last more than 10 days. ? Cool, wet cloths placed on the eyes. ? Artificial tears used 2?6 times a day. Follow these instructions at home: Medicines ? Take or apply your antibiotic medicine as told by your doctor. Do not stop taking or applying the antibiotic even if you start to feel better. ? Take or apply eift-dqd-dgezsgn and prescription medicines only as told by your doctor. ? Do not touch your eyelid with the eye-drop bottle or the ointment tube. Managing discomfort ? Wipe any fluid from your eye with a warm, wet washcloth or a cotton ball. ? Place a clean, cool, wet cloth on your eye. Do this for 10?20 minutes, 3?4 times per day. General instructions ? Do not wear contacts until the infection is gone. Wear glasses until your doctor says it is okay to wear contacts again. ? Do not wear eye makeup until the infection is gone. Throw away old eye makeup. ? Change or wash your pillowcase every day. ? Do not share towels or washcloths. ? Wash your hands often with soap and water. Use paper towels to dry your hands. ? Do not touch or rub your eyes. ? Do not drive or use heavy machinery if your vision is blurred. Contact a doctor if: ? You have a fever. ? You do not get better after 10 days. Get help right away if: ? You have a fever and your symptoms get worse all of a sudden. ? You have very bad pain when you move your eye. ? Your face: ? Hurts. ? Is red. ? Is swollen. ? You have sudden loss of vision. Summary ? Bacterial conjunctivitis is an infection of your conjunctiva. ? This infection spreads easily from person to person. ? Wash your hands often with soap and water. Use paper towels to dry your hands. ? Take or apply your antibiotic medicine as told by your doctor. ? Contact a doctor if you have a fever or you do not get better after 10 days. This information is not intended to replace advice given to you by your health care provider. Make sure you discuss any questions you have with your health care provider. Document Revised: 08/23/2019 Document Reviewed: 12/08/2018 [employer] Patient Education ? 2020 [employer]. Medication Information: The exam and treatment you received today in the [facility] Emergency Department were for an urgent problem and are not intended as complete care. It is important for you to follow up with a doctor, nurse practitioner, or physician?s fast food sales assistant for ongoing care. If your symptoms become worse or yo (more content not included)... Normal [facility] Urgent Care Note- Provideron 08-19-2021 Urgent Care Note- Provider Patient: JODI COLORADO Age: 30 years Sex: FEMALE : 1990 Associated Diagnoses: Right conjunctivitis Author: Ko Desir Basic Information Time seen: Date & time 08/19/2021 13:07:00. History source: Patient. History limitation: None. Additional information: Chief Complaint from Nursing Triage Note : Chief Complaint 08/19/2021 12:58 EDT Chief Complaint Right eye redness started today. Is just getting over nasal cold. Pt denies any fevers. . History of Present Illness Patient is a 30-year-old yoF complaint of redness to the right eye. States began this morning. Patient states minimally itchy. Does not wear contacts or glasses. States she is getting over a cold. No blurred vision double vision or change in vision. Patient has no other complaints or concerns. Patient with no known medication allergies. ROS Constitutional negative ENMT negative Eye vision unchanged, discharge Additional negative Physical exam General - alert no acute distress Skin - warm dry Head -normocephalic atraumatic Eye - PERRL, EOMI, erythematous right conjunctiva with subtle erythema to the medial aspect of the left conjunctiva Cardiovascular - regular rate regular rhythm, no murmur, normal peripheral perfusion Respiratory - lungs clear to auscultation, nonlabored respirations, breath sounds equal Lymphatics - no lymphadenopathy Medical decision making Corneal abrasion, conjunctivitis, foreign body, iritis Physical exam findings consistent with right conjunctivitis, possibly with early left-sided conjunctivitis. Explained will provide enough of the antibiotic drops if he begins to have issues with the left eye can begin using the drops in the left eye. Home care instructions provided. Follow-up instructions provided. Stated understanding of treatment and home care instructions. Health Status Allergies: Allergic Reactions (Selected) No Known Medication Allergies. Past Medical/ Family/ Social History Medical history: No active or resolved past medical history items have been selected or recorded.. Surgical history: No active procedure history items have been selected or recorded.. Family history: No family history items have been selected or recorded.. Social history: Social & Psychosocial Habits Tobacco 08/19/2021 Smoking tobacco use: Never tobacco user Electronic Cigarette/Vaping 08/19/2021 Electronic Cigarette Use: Never . Problem list: No qualifying data available . Physical Examination Vital Signs Vital Signs 08/19/2021 12:58 EDT Temperature Oral 37.1 DegC Peripheral Pulse Rate 74 bpm Respiratory Rate 16 br/min Systolic Blood Pressure 114 mmHg Diastolic Blood Pressure 68 mmHg SpO2 98 % Oxygen Therapy Room air . Measurements 08/19/2021 12:58 EDT Height 165.10 cm Weight 56.70 kg Body Mass Index 20.8 kg/m2 . Impression and Plan Diagnosis Right conjunctivitis (POA26-FA H10.9, Discharge, Medical) Plan Prescriptions: Launch prescriptions Pharmacy: polymyxin B-trimethoprim 10,000 units-1 mg/mL ophthalmic solution (Prescribe): 1 drop(s), Right eye, q6hr, for 10 day(s), 10 mL, 0 Refill(s). Patient was given the following educational materials: Bacterial Conjunctivitis, Adult, Gvsk-pw-Ylyz. Follow up with: Jessica Roberts Begin on the the antibiotic drops take as written until gone If the symptoms persist or fail to resolve call to schedule follow up with Dr. Quezada glass calibrator [phone] office located at [address] [place] [address], otherwise follow-up with your primary care provider in 3-5 days Exercise good hygiene such as frequent handwashing, wiping off door handles Try not to touch the eye or near the eye. Can wash around the eye with warm water and no tears shampoo 3-4 times daily . Counseled: Patient, Regarding diagnosis, Regarding diagnostic results, Regarding treatment plan, Regarding prescription, Patient indicated understanding of instructions. [Electronically Signed on: 08/19/2021 14:34 EDT] Ko Desir [Verified on: 08/19/2021 14:34 EDT] Ko Desir [facility] [place] 022 Urgent Care Record [facility] ? Urgent Care [address] [place] [address] PATIENT DISCHARGE INSTRUCTIONS Patient Information Name: JODI COLORADO Age: 30 Years Date of : 1990 Reason For Visit: UC - Eye Redness; UC - Eye Redness; RIGHT EYE IRRITATION Arrival Time: 08/19/2021 12:52:37 Primary Care Physician: Jessica Roberts MD Attending Physician: Ko Desir Comment: Visit Diagnosis: Diagnoses This Visit Right conjunctivitis (H10.9) UC - Eye Redness ([id number]) UC - Eye Redness ([id number]) If you received any narcotics, sedation, or any other medication that causes drowsiness for the next 24 hours, unless otherwise directed: ? Do not drive a car. ? Do not operate machinery such as power tools, lawn mowers, drills, sewing machines, or stoves ? Avoid alcoholic beverages and drugs for allergies, nerves, or sleep ? Do not make important personal or business decisions or sign any legal documents With: Address: When: Jessica Roberts [address] [place] [address] Business (1) Comments: Begin on the the antibiotic drops take as written until gone If the symptoms persist or fail to resolve call to schedule follow up with Dr. Quezada glass calibrator [phone] office located at [address] [place] [address], otherwise follow-up with your primary care provider in 3-5 days Exercise good hygiene such as frequent handwashing, wiping off door handles Try not to touch the eye or near the eye. Can wash around the eye with warm water and no tears shampoo 3-4 times daily Medication Information: The exam and treatment you received today in the [facility] Urgent Care were for an urgent problem and are not intended as complete care. It is important for you to follow up with a doctor, nurse practitioner, or physician?s fast food sales assistant for ongoing care. If your symptoms become worse or you do not improve as expected and you are unable to reach your usual health care provider, you should return to the Emergency Department, we are available 24 hours a day. For those patients who have received Radiology results, the interpretation of your X-ray as given to you by our Urgent Care physician is only a preliminary report. The Radiologist will review your films and if there is a change in the diagnosis you will be notified by phone. Please make sure you have provided a working phone number so we can reach you if necessary. In the event that you had a lab culture while you were a patient in the Urgent Care, you will be notified by phone if there is a need to change your antibiotic. Please make sure you have provided a working phone number so we can reach you if necessary. [facility] Urgent Care has provided you with a complete list of medications post discharge. Please inform your mainspring torque tester/provider of your visit and for further instruction on these medications. Any specific questions regarding your chronic medications and dosages should be discussed with your primary care physician(s) and/or pharmacist. New Medications [employer] [facility] #[id number], [address] [place], [place] [id number], [phone] polymyxin B-trimethoprim ophthalmic (polymyxin B-trimethoprim 10,000 units-1 mg/mL ophthalmic solution) 1 Drops Right eye Every 6 hours for 10 Days. Refills: 0. Visit Information Allergies: Substance Reaction Symptoms Type Comments No Known Medication Allergies Drug Vital Signs: Vitals and Measurements this Visit (last charted value for your 08/19/2021 visit) Vital Signs This Visit Temperature Oral: 37.1 DegC Peripheral Pulse Rate: 74 bpm Respiratory Rate: 16 br/min Systolic Blood Pressure: 114 mmHg Diastolic Blood Pressure: 68 mmHg SpO2: 98 % Oxygen Therapy: Room air Measurements This Visit Height: 165.10 cm Weight: 56.70 kg Body Mass Index: 20.8 kg/m2 Problems List: Problem Onset Comments No Problems found Patient Education Bacterial Conjunctivitis, Adult Bacterial conjunctivitis is an infection of your conjunctiva. This is the clear membrane that covers the white part of your eye and the inner part of your eyelid. This infection can make your eye: ? Red or pink. ? Itchy. This condition spreads easily from person to person (is contagious) and from one eye to the other eye. What are the causes? ? This condition is caused by germs (bacteria). You may get the infection if you come into close contact with: ? A person who has the infection. ? Items that have germs on them (are contaminated), such as face towels, contact lens solution, or eye makeup. What increases the risk? You are more likely to get this condition if you: ? Have contact with people who have the infection. ? Wear contact lenses. ? Have a sinus infection. ? Have had a recent eye injury or surgery. ? Have a weak body defense system (immune system). ? Have dr (more content not included)... Normal [facility] Nicotine Metabolite, Urine L Con 07-13-2021 Cotinine LC Negative Invalid Interpretation Code [id number] [facility] Comment on above: Order Comment: order shows MMR to be drawn, patient states she didn't need it done, she gave the results to Zaid in HR this morning AP Result Comment: Perf ormed At: [facility] [place] [address] [place], [place] [id number] Magdy Lassiterei PhD Ph:[phone] Performed By: #### 1 [id number] #### [facility] (DEFAULT) [address] [place] [address] Vital Signs Date Time Vital Sign Value Performing Clinician Facility 10-05-2023 15:22-0400 Body height 165.1 cm [facility] 10-05-2023 15:22-0400 Body mass index (BMI) [Ratio] 22.8 kg/m2 [facility] 10-05-2023 15:22-0400 Body temperature 98.8 [degF] [facility] 10-05-2023 15:22-0400 Body weight 62.14 kg [facility] 10-05-2023 15:22-0400 Diastolic blood pressure 52 mm[Hg] [facility] 10-05-2023 15:22-0400 Heart rate 99 /min [facility] 10-05-2023 15:22-0400 Respiratory rate 18 /min [facility] 10-05-2023 15:22-0400 SaO2% (BldA) [Mass fraction] 99 % [facility] 10-05-2023 15:22-0400 Systolic blood pressure 92 mm[Hg] [facility] 12-23-2021 17:06-0400 Body weight 59.[address] ARSENIO HAILE . [facility] Comment on above: Performed By: #### AFPMAT #### [facility] [address] [address] [address] Elda Caicedo Encounters Encounter Date Encounter Type Care Provider Facility Start: 10-05-2023 End: 10-05-2023 ambulatory [facility] Work Phone: Start: 10-05-2023 End: 10-05-2023 Patient encounter procedure [facility] Work Phone: Start: 07-06-2023 End: 07-06-2023 ambulatory FLORA PUENTE Not Available Start: 05-05-2023 End: 05-05-2023 ambulatory ARSENIO HAILE Not Available Start: 08-06-2022 End: 08-06-[address] ARSENIO HAILE . Facility:[facility] Start: 05-05-2022 End: 05-05-[address] JESSICA ROBERTS Facility:[facility] Start: 05-01-2022 End: 05-03-2022 Evaluation and management of inpatient DR ARSENIO HAILE . Facility:[facility] Start: 04-21-2022 Evaluation and management of inpatient DR JESSICA ROBERTS Facility:[facility] Start: 04-09-2022 End: 04-09-[address] ARSENIO HAILE . Facility:[facility] Start: 02-26-2022 End: 02-28-[address] ARSENIO HAILE . Facility:[facility] Start: 02-26-2022 End: 02-26-[address] MIREYA NAIK . Facility:[facility] Start: 02-15-2022 End: 02-16-[address] ARSENIO HAILE . Facility:[facility] Start: 12-24-2021 End: 12-25-[address] OLIVIA LOTT Facility:[facility] Start: 12-14-2021 End: 12-15-[address] ARSENIO HAILE . Facility:[facility] Start: 11-27-2021 End: 11-27-[address] ARSENIO HAILE . Facility:[facility] Start: 10-19-2021 End: 10-20-[address] ARSENIO HAILE . Facility:[facility] Start: 10-03-2021 End: 10-04-[address] ARSENIO HAILE . Facility: Procedures Date Procedure Procedure Detail Performing Clinician Start: 10-05-2023 Quick Strep (POC) Start: 05-01-2022 Delivery of Products of Conception, External Approach DR ARSENIO HAILE . Start: 05-01-2022 Repair Perineum Musc le, Open Approach DR ARSENIO HAILE . Start: 05-01-2022 Drainage of Amniotic Fluid, Therapeutic from Products of Conception, Via Natural or Artificial Opening DR ARSENIO HAILE . Immunizations Immunization Date Immunization Notes Care Provider Fa martina 11-09-2019 diphtheria, tetanus toxoids and acellular pertussis vaccine, unspecified formulation [facility] Payers Date Payer Category Payer Unknown [id number] 1992 Unknown [id number] 2.16.84 [id number] 1992 Unknown [id number] 2.16.84 0.1.371039.3.579.2.593 1992 Unknown [id number] 2.16.84 0.1.334727.3.579.2.593 1992 Unknown [id number] 2.16.84 0.1.075129.3.579.2.593 1992 Unknown [id number] 2.16.84 0.1.753824.3.579.2.593 1992 Unknown [id number] 2.16.84 0.1.540107.3.579.2.593 1992 Unknown [id number] 2.16.84 0.1.984788.3.579.2.593 1992 Unknown [id number] 2.16.84 0.1.044777.3.579.2.593 1992 Unknown [id number] 2.16.84 0.1.387966.3.579.2.593 1992 Unknown [id number] 2.16.84 0.1.782742.3.579.2.593 1992 Unknown [id number] 2.16.84 0.1.273667.3.579.2.593 1992 Unknown [id number] 2.16.84 0.1.174718.3.579.2.593 1992 Unknown [id number] 2.16.84 0.1.777031.3.579.2.593 1992 Unknown [id number] 2.16.84 0.1.041154.3.579.2.1259 1992 Unknown [id number] 2.16.840 .1.032936.3.579.2.1259 1959 Unknown [id number] 1959 Unknown [id number] 1959 Unknown [id number] Unknown [place] [employer] [id number] Social History Date Type Detail Facility Start: 10-05-2023 Tobacco smoking stat [facility] Never smoked tobacco (finding) [facility] Start: 1990 Sex Assigned At Female [facility] Clinical Note 08-19-2021 Note Date & Type Note Facility 08-19-2021 Note Patient Education Ma terials Follows:Disease Bacterial Conjunctivitis, Adult Bacterial conjunctivitis is an infection of your conjunctiva. This is the clear membrane that covers the white part of your eye and the inner part of your eyelid. This infection can make your eye: ? Red or pink. ? Itchy. This condition spreads easily from person to person (is contagious) and from one eye to the other eye. What are the causes? ? This condition is caused by germs (bacteria). You may get the infection if you come into close contact with: ? A person who has the infection. ? Items that have germs on them (are contaminated), such as face towels, contact lens solution, or eye makeup. What increases the risk? You are more likely to get this condition if you: ? Have contact with people who have the infection. ? Wear contact lenses. ? Have a sinus infection. ? Have had a recent eye injury or surgery. ? Have a weak body defense system (immune system). ? Have dry eyes. What are the signs or symptoms? ? Thick, yellowish discharge from the eye. ? Tearing or watery eyes. ? Itchy eyes. ? Burning feeling in your eyes. ? Eye redness. ? Swollen eyelids. ? Blurred vision. How is this treated? ? Antibiotic eye drops or ointment. ? Antibiotic medicine taken by mouth. This is used for infections that do not get better with drops or ointment or that last more than 10 days. ? Cool, wet cloths placed on the eyes. ? Artificial tears used 2?6 times a day. Follow these instructions at home: Medicines ? Take or apply your antibiotic medicine as told by your doctor. Do not stop taking or applying the antibiotic even if you start to feel better. ? Take or apply [id number] and prescription medicines only as told by your doctor. ? Do not touch your eyelid with the eye-drop bottle or the ointment tube. Managing discomfort ? Wipe any fluid from your eye with a warm, wet washcloth or a cotton ball. ? Place a clean, cool, wet cloth on your eye. Do this for 10?20 minutes, 3?4 times per day. General instructions ? Do not wear contacts until the infection is gone. Wear glasses until your doctor says it is okay to wear contacts again. ? Do not wear eye makeup until the infection is gone. Throw away old eye makeup. ? Change or wash your pillowcase every day. ? Do not share towels or washcloths. ? Wash your hands often with soap and water. Use paper towels to dry your hands. ? Do not touch or rub your eyes. ? Do not drive or use heavy machinery if your vision is blurred. Contact a doctor if: ? You have a fever. ? You do not get better after 10 days. Get help right away if: ? You have a fever and your symptoms get worse all of a sudden. ? You have very bad pain when you move your eye. ? Your face: ? Hurts. ? Is red. ? Is swollen. ? You have sudden loss of vision. Summary ? Bacterial conjunctivitis is an infection of your conjunctiva. ? This infection spreads easily from person to person. ? Wash your hands often with soap and water. Use paper towels to dry your hands. ? Take or apply your antibiotic medicine as told by your doctor. ? Contact a doctor if you have a fever or you do not get better after 10 days. This information is not intended to replace advice given to you by your health care provider. Make sure you discuss any questions you have with your health care provider. Document Revised: 08/23/2019 Document Reviewed: 12/08/2018 Elsevier Patient Education ? 2020 [employer]. [facility] Evaluation note Note Date & Type Note Facility Evaluation note No assessment information availa [facility] Work Phone: Summary Purpose Family History No Family History Records FoundNo Family History Records FoundNo Family History Records Found Advance Directives Advance Directive Response Recorded Date/ Time Advance Directives No October 04 3:16pm Chief Complaint and Reason for Visit Chief Complaint sore throat, fever Additional Source Comments INFORMATION SOURCE (unrecogn ized section and content) DATE CREATED AUTHOR 01/07/2022 [facility] l DATE CREATED AUTHOR AUTHOR'S ORGANIZ ATION 08/19/2022 [facility] DATE CREATED AUTHOR AUTHOR'S ORGANIZ ATION 07/07/2023 [facility] EPIC Care Teams (unrecognized sec tion and content) Team Status: Active Member Role Status Dates Outreach [facility] Primary Care Provider Active Team Status: Inactive Member Role Status Dates Manuela Corado APRN Attending Provider Active S tart: October 05, 2023 End: October 05, 2023 [facility] Primary Care Provider Active Start: October 05, 2023 End: October 05, 2023 Goals (unrecognized section and content) Goals may be documented in a n alternate section FOR RECORDS PERTAINING TO PATIENTS WHO ARE OR HAVE BEEN ENROLLED IN A CHEMICAL DEPENDENCY/SUBSTANCEABUSE PROGRAM, SOME INFORMATION MAY BE OMITTED. This clinical summary was aggregated from multiple sources. Caution should be exercised in using it in the provision of clinical care. This summary normalizes information from multiple sources, and as a consequence, information in this document may materially change the coding, format and clinical context of patient data. In addition, data may be omitted in some cases. CLINICAL DECISIONS SHOULD BE BASED ON THE PRIMARY CLINICAL RECORDS. [email or web address] provides no warranty or guarantee of the accuracy or completeness of information in this document.
== END 2023-10-20 20:52 | disposition home or self-care (01) ==
LOC: LAB 20:51
PROVIDERS: PCP Family Medicine; Visit Provider Obstetrics & Gynecology
DX: Z01.419 Encounter for gynecological examination (general) (routine) without abnormal findings (principal)
CPT/HCPCS: 88175

== ENCOUNTER 2024-07-11 15:52 | Outpatient (RCR) | payer OTHER, SELFPAY ==
[2024-07-11 16:45] LABS: HCG Quantitative 911 mIU/mL
[2024-07-13 08:17] LABS: HCG Quantitative 902 mIU/mL
[2024-07-15 07:56] LABS: HCG Quantitative 888 mIU/mL
== END 2024-07-15 16:58 | disposition home or self-care (01) ==
LOC: LAB 15:52
PROVIDERS: PCP Family Medicine; Visit Provider Obstetrics & Gynecology
DX: O03.9 Complete or unspecified spontaneous abortion without complication (principal)
CPT/HCPCS: 36415; 84702

== ENCOUNTER 2024-07-17 14:00 | Outpatient (RCR) | payer OTHER, SELFPAY ==
[2024-07-17 14:33] LABS: HCG Quantitative 727 mIU/mL
[2024-08-03 16:16] LABS: HCG Quantitative <1 mIU/mL
== END 2024-08-15 13:08 | disposition home or self-care (01) ==
LOC: LAB 14:00
PROVIDERS: PCP Family Medicine; Visit Provider Obstetrics & Gynecology
DX: Z09 Encounter for follow-up examination after completed treatment for conditions other than malignant neoplasm (principal)
CPT/HCPCS: 36415; 84702

== ENCOUNTER 2024-07-19 10:34 | Outpatient (OUT) | payer OTHER, SELFPAY ==
--- OUTSIDE RECORDS SUMMARY | 2024-07-19 10:38 | XMS_ITS | CCD ---
Author Organization [facility] Care Team Providers Care Registered Public Health Nurse Name Role Phone BEBETO ., DR CESAR Consulting Unavailable BEBETO ., DR CESAR Attending Unavailable BEBETO ., DR CESAR Admitting Unavailable BEBETO ., DR CESAR Consulting Unavailable BEBETO ., DR CESAR Attending Unavailable BEBETO ., DR CESAR Admitting Unavailable BEBETO ., DR CESAR Consulting Unavailable BEBETO ., DR CESAR Attending Unavailable BEBETO ., DR CESAR Admitting Unavailable BEBETO ., DR CESAR Consulting Unavailable ROBERTS, DR JESSICA Jaquez Primary Care Unavailable BEBETO ., DR CESAR Attending Unavailable BEBETO ., DR CESAR Admitting Unavailable BEBETO ., DR CESAR Consulting Unavailable ROBERTS, DR JESSICA Jaquez Primary Care Unavailable BEBETO ., DR CESAR Attending Unavailable EBBETO ., DR CESAR Admitting Unavailable ROBERTS, DR JESSICA Jaquez Primary Care Unavailable BEBETO ., DR CESAR Attending Unavailable BEBETO ., DR CESAR Admitting Unavailable KARASIK ., DR GOMES Consulting Unavailabl e ROBERTS, DR JESSICA Jaquez Primary Care Unavailable BEBETO ., DR CESAR Attending Unavailable BEBETO ., DR CESAR Admitting Unavailable ROBERTS, DR JESSICA Jaquez Primary Care Unavailable BEBETO ., DR CESAR Attending Unavailable BEBETO ., DR CESAR Admitting Unavailable BEBETO ., DR CESAR Consulting Unavailable ROBERTS, DR JESSICA Jaquez Primary Care Unavailable BEBETO ., DR CESAR Attending Unavailable BEBETO ., DR CESAR Admitting Unavailable TRUDY JULES Consulting Unavailable DEWAYNE AYALA Consulting Unavailable BEBETO ., DR CESAR Procedure Practitioner Unavail able ELISE ORTIZ Consulting Unavailable MILAN, DR OLIVIA De La Paz Consulting Unavailable REQUEST, DR FREDIS LISTED Primary Care Unavaila ble BEBETO ., DR CESAR Attending Unavailable BEBETO ., DR CESAR Admitting Unavailable BEBETO ., DR CESAR Consulting Unavailable BEBETO ., DR CESAR Consulting Unavailable ARMANDO, DR JESSICA Jaquez Primary Care Unavailable BEBETO ., DR CESAR Attending Unavailable BEBETO ., DR CESAR Admitting Unavailable BEBETO ., DR CESAR Consulting Unavailable BEBETO ., DR CESAR Attending Unavailable BEBETO ., DR CESAR Admitting Unavailable ZIEBER, DR FCO Lynch Consulting Unavailable BEBETO ., DR CESAR Consulting Unavailable BEBETO ., DR CESAR Attending Unavailable BEBETO ., DR CESAR Admitting Unavailable FLORA PUENTE Attending Unavailable ARSENIO TATE Attending Unavailable JESSICA ROBERTS Referring Unavailable NELDA MIRAMONTES Attending Unavailable ARSENIO TATE Attending Unavailable Jessica Roberts MD Primary Care Provider Jessica Roberts MD Attending Provider Jessica Roberts Attending Unavailable Jessica Roberts Primary Care Unavailable Jessica Roberts Admitting Unavailable Jessica Roberts MD Primary Care Provider Medications Current Medications Medication Drug Class(es) Dates Sig (Normalized) Sig (Original) amoxicillin 875 mg / clavulanate 125 mg oral tablet (1 source) Penicillin-class Antibacterial Start: 06-09-2024 take 1 tablet by mouth twice daily Amoxicillin-Pot Clavulanate 875-125 mg tablet Active 1 TAB PO Twice daily June 09, 2024 12:00am MULTIPLE VITAMIN PO (4 sources) MULTIPLE VITAMIN PO Take by mouth Active Antoine (No Known Home Meds) (1 source) Start: 04-19-2024 Antoine (No Known Home Meds) Active April 19, 2024 12:00am Completed/Discontinued Medications Medication Drug Class(es) Dates Sig (Normalized) Sig (Original) amoxicillin 500 mg oral capsule (3 sources) Penicillin-class Antibacterial Start: 10-05-2023 End: 10-23-2023 take 1 capsule by mouth twice daily Amoxicillin 500 mg capsule Discontinued 500 MG PO Twice daily 06 03October 04, 2023 11:00pm October 23, 2023 8:48am Problems Active Problems Problem Classification Problem Date Documented Date Episodic/Chronic Immunizations and screening for infectious disease (6 sources) Encounter for screening for human papillomavirus (HPV); Translations: [Encounter for screening for infections with a predominantly sexual mode of transmission] Onset: 10-24-2021 Episodic Menstrual disorders (4 sources) Irregular menstruation, unspecified; Translations: [IRREGULAR MENSTRUATION UNSPECIFIED] Onset: 10-19-2021 Chronic Miscellaneous mental health disorders (4 sources) Anxiety about body function or health; Translations: [Other symptoms and signs involving emotional state] 04-29-2024 Episodic Nonmalignant breast conditions (5 sources) Breast lump; Translations: [Unspecified lump in the right breast, unspecified quadrant] Onset: 05-23-2024 04-29-2024 Episodic OB-related trauma to perineum and vulva (1 [...] for Streptococcus B] Onset: 10-24-2021 Episodic Other skin disorders (3 sources) Mass of lower limb; Translations: [Localized swelling, mass and lump, left lower limb] 10-23-2023 Episodic Other skin disorders (1 source) Localized swelling, mass and lump, left lower limb; Translations: [Localized superficial swelling, mass, or lump] 10-23-2023 Episodic Other upper respiratory infections (5 sources) Streptococcal sore throat; Translations: [Streptococcal pharyngitis] 10-05-2023 [...] Results Test Name Value Interpretation Reference Range [facility] PREG QUANT HCGon 025 HCG QUANTITATIVE 727 mIU/mL [facility] Comment on above: 5-50 0.2-1 WEEK 50-500 1-2 WEEKS 100-5,000 2-3 WEEKS 500-10,000 3-4 WEEKS 1,000-50,000 4-5 WEEKS 10,000-100,000 5-6 WEEKS 15,000-200,000 6-8 WEEKS 10,000-100,000 2-3 MONTHS [facility] PREG QUANT HCGon 025 HCG QUANTITATIVE 888 mIU/mL [facility] Comment on above: 5-50 0.2-1 WEEK 50-500 1-2 WEEKS 100-5,000 2-3 WEEKS 500-10,000 3-4 WEEKS 1,000-50,000 4-5 WEEKS 10,000-100,000 5-6 WEEKS 15,000-200,000 6-8 WEEKS 10,000-100,000 2-3 MONTHS [facility] PREG QUANT HCGon 025 HCG QUANTITATIVE 902 mIU/mL [facility] Comment on above: 5-50 0.2-1 WEEK 50-500 1-2 WEEKS 100-5,000 2-3 WEEKS 500-10,000 3-4 WEEKS 1,000-50,000 4-5 WEEKS 10,000-100,000 5-6 WEEKS 15,000-200,000 6-8 WEEKS 10,000-100,000 2-3 MONTHS [facility] PREG QUANT HCGon 025 HCG QUANTITATIVE 911 mIU/mL [facility] Comment on above: 5-50 0.2-1 WEEK 50-500 1-2 WEEKS 100-5,000 2-3 WEEKS 500-10,000 3-4 WEEKS 1,000-50,000 4-5 WEEKS 10,000-100,000 5-6 WEEKS 15,000-200,000 6-8 WEEKS 10,000-100,000 2-3 MONTHS [facility] Mammography reportOrdered By : Karla Vance on 05-23-2024 Diagnostic imaging study [facility] [place] [address] [place] [address] Mammography Report Signed Patient: Jodi [place] MR#: [id number] : 1990 Acct:[id number] Age/Sex: 33 / F ADM Date: 5 Loc: [place] Room: Type: [facility] Attending Dr: Jessica Roberts MD Copies to: Jessica Roberts MD~ Ordering Provider: Jessica Roberts MD Date of Service: 05/23/24 US/US breast RT limited: N63.10 - Unspecified lump inthe right breast, unspecifie... ([id number]) MM/MM diagnostic mammo BI w/CAD: N63.10 - Unspecified lump in theright breast, unspecifie... DIAGNOSTIC BILATERAL MAMMOGRAM - FULL FIELD DIGITAL WITH TOMOSYNTHESIS CLINICAL DATA: Palpable lump in lateral aspect of the right breast Tomosynthesis Craniocaudal and mediolateral oblique views of the bilateral breast were obtained using low-dose digital technique. No comparison studies areavailable. This examination was reviewed with the aid of CAD. Benign-appearing lymph nodes are noted along the chest wall. There is heterogeneous dense fibroglandular tissue. There are no dominant masses, typically malignant calcifications or architectural distortion. Limited right breast ultrasound: Fibroid tissues noted in the region of palpable abnormality at 9:00 position 5 cm from the nipple. There is no evidence of mass, architectural torsion, or atypical calcification, or cyst. MM/MM diagnostic mammo BI w/CAD IMPRESSION: NO MAMMOGRAPHIC OR MAMMOGRAPHIC EVIDENCE OF MALIGNANCY. ROUTINE FOLLOW-UP IS RECOMMENDED IN ONE YEAR. RESULT CODE: 2 Benign Findings(s) DENSITY CODE: 3 (approximately 51-75% glandular) FOLLOW UP: 1YR The false-negative rate of mammography is approximately 10-percent. Management of a palpable abnormality must be based on clinical grounds. Impression dictated by: Karla Vance M.D.05/23/2024 3:16 PM Dictation Location: [facility] Transcribed By: [facility] 05/23/24 1516 Dictated By: Karla Vance II, MD 05/23/24 1455 Signed By: 05/23/246 [facility] Work Phone: US breast RT limitedon 05-23 US breast RT limited [facility] [place] [address] [place] [address] Mammography Report Signed Patient: Jodi [place] MR#: [id number] : 1990 Acct:[id number] Age/Sex: 33 / F ADM Date: 05/23/24 Loc: [place] Room: Type: [facility] Attending Dr: Jessica Roberts MD Copies to: Jessica Roberts MD Ordering Provider: Jessica Roberts MD Date of Service: 05/23/24 US/US breast RT limited: N63.10 - Unspecified lump in the right breast, unspecifie... ([id number]) MM/MM diagnostic mammo BI w/CAD: N63.10 - Unspecified lump in the right breast, unspecifie... DIAGNOSTIC BILATERAL MAMMOGRAM - FULL FIELD DIGITAL WITH TOMOSYNTHESIS CLINICAL DATA: Palpable lump in lateral aspect of the right breast Tomosynthesis Craniocaudal and mediolateral oblique views of the bilateral breast were obtained using low-dose digital technique. No comparison studies are available. This examination was reviewed with the aid of CAD. Benign-appearing lymph nodes are noted along the chest wall. There is heterogeneous dense fibroglandular tissue. There are no dominant masses, typically malignant calcifications or architectural distortion. Limited right breast ultrasound: Fibroid tissues noted in the region of palpable abnormality at 9:00 position 5 cm from the nipple. There is no evidence of mass, architectural torsion, or atypical calcification, or cyst. MM/MM diagnostic mammo BI w/CAD IMPRESSION: NO MAMMOGRAPHIC OR MAMMOGRAPHIC EVIDENCE OF MALIGNANCY. ROUTINE FOLLOW-UP IS RECOMMENDED IN ONE YEAR. RESULT CODE: 2 Benign Findings(s) DENSITY CODE: 3 (approximately 51-75% glandular) FOLLOW UP: 1YR The false-negative rate of mammography is approximately 10-percent. Management of a palpable abnormality must be based on clinical grounds. Impression dictated by: Karla Vance M.D.05/23/2024 3:16 PM Dictation Location: [facility] Transcribed By: [facility] 05/23/24 1516 Dictated By: Karla Vance II, MD 05/23/24 1455 Signed By: 05/23/24 151 Normal [facility] US LOWER EXTREMITY NON-VASC LEFTon 10-23-2023 US LOWER EXTREMITY NON-VASC LEFT FINDINGS: Targeted ultrasound was performed overlying the palpable abnormality as indicated by the patient, left anterior mid thigh. A non-aggressive appearing mass is seen within the subcutaneous adipose tissue, isoechoic to adipose tissue, consistent with a non-aggressive lipoma, 2.0 x 0.5 x 3.5 cm. No increase in vascularity, shadowing, or extension into the underlying musculature or neighboring soft tissues. IMPRESSION: Non-aggressive lipoma TRANSCRIBED BY: ELECTRONICALLY SIGNED BY: Bhavin Templeton MD Normal Not Available No Panel InformationOrdered By: Manuela Corado on 10-05-2023 Quick Strep (POC) [facility] PAP ACOG PANEL 2: to 29on 08-14-2022 . . Normal [facility] Comment on above: Result Comment: Perf ormed at: WB Performed By: #### A FPMAT #### [facility] [address] [address] [address] Elda Caicedo Age Gdln ACOG Testing - Normal [facility] Comment on above: Performed By: #### A FPMAT #### [facility] [address], [place] [address] Dr. Elda Caicedo DIAGNOSIS: Comment Abnormal [facility] Comment on above: Result Comment: EPIT HELIAL CELL ABNORMALITY. LOW GRADE SQUAMOUS INTRAEPITHELIAL LESION (LSIL). Performed at: WB Performed By: #### A FPMAT #### [facility] [address], [place] [address] Dr. Elda Caicedo Electronically signed by: Comment Normal [facility] Comment on above: Result Comment: Bossman Jimenez MD, Pathologist Performed at: WB Performed By: #### A FPMAT #### [facility] [address] [place] [address] Dr. Elda Caicedo Methodology: Comment [facility] Comment on above: Result Comment: This liquid based ThinPrep(R) pap test was screened with the use of an image guided system. Performed at: WB Performed By: #### A FPMAT #### [facility] [address] [place] [address] Dr. Elda Caicedo Note: Comment Normal [facility] Comment on above: Result Comment: The [...] WB Performed By: #### A FPMAT #### [facility] [address] [place] [address] Dr. Elda Caicedo Pathologist Provided ICD10 Comment Normal [facility] Comment on above: Result Comment: R87. [id number] Performed at: WB Performed By: #### A FPMAT #### [facility] [address] [place] [address] Dr. Elda Caicedo Performed by: Comment Normal [facility] Comment on above: Result Comment: Sriram Granados, Art Therapist (ASCP) Performed at: [facility] Performed By: #### A FPMAT #### [facility] [address] [place] [address] Dr. Elda Caicedo Reflex Criteria: Comment Normal [facility] Comment on above: Result Comment: The HPV DNA reflex criteria were not met with this specimen result therefore, no HPV testing was performed. . Performed at: WB Performed By: #### A FPMAT #### [facility] [address] [place] [address] Dr. Elda Caicedo Specimen adequacy: Comment Normal [facility] Comment on above: Result Comment: Sati sfactory for evaluation. Endocervical and/or squamous metaplastic cells (endocervical component) are present. Performed at: WB Performed By: #### A FPMAT #### [facility] [address] [place] [address] Dr. Elda Caicedo CBC AUTO DIFFon 05-02-2022 BASO # 0.0 103/ul Normal 0.0-0.1 [facility] Comment on above: Performed By: #### C BC #### [facility] [address] [place] [address] Dr. Elda Caicedo Basophils/100 WBC (Bld) 0.4 % Normal 0.2-2.0 [facility] Comment on above: Performed By: #### C BC #### [facility] [address] [place] [address] Dr. Elda Caicedo EO # 0.5 103/ul Normal 0.0-0.7 [facility] Comment on above: Performed By: #### C BC #### [facility] [address] [place] [address] Dr. Elda Caicedo Eosinophils/100 WBC (Bld) 4.6 % Normal 0.9-7.0 [facility] Comment on above: Performed By: #### C BC #### [facility] [address] [place] [address] Dr. Elda Caicedo Erythrocyte distribution width (RBC) [Ratio] 13.4 % Normal 11.0-15.0 [facility] Comment on above: Performed By: #### C BC #### [facility] [address] [place] [address] Dr. Elda Caicedo Hematocrit (Bld) [Volume fraction] 30.3 % Critically low 36.0-48.0 [facility] Comment on above: Performed By: #### C BC #### [facility] [address] [place] [address] Dr. Elda Caicedo Hemoglobin (Bld) [Mass/Vol] 10.0 g/dL Critically low 12.0-16.0 [facility] Comment on above: Performed By: #### C BC #### [facility] [address] [place] [address] Dr. Elda Caicedo IG # 0.11 10e3/ul Critically high 0.00-0.03 [facility] Comment on above: Performed By: #### C BC #### [facility] [address] [place] [address] Dr. Elda Caicedo IG % 1.1 % Critically high 0.0-0.5 [facility] Comment on above: Performed By: #### C BC #### [facility] [address] [place] [address] Dr. Elda Caicedo LYMPH # 1.2 103/ul Normal 1.2-3.8 [facility] Comment on above: Performed By: #### C BC #### [facility] [address] [place] [address] Dr. Elda Caicedo Lymphocytes/100 WBC (Bld) 11.7 % Critically low 20.5-60.0 [facility] Comment on above: Performed By: #### C BC #### [facility] [address] [place] [address] Dr. Elda Caicedo MANUAL DIFF REQ NO Normal [facility] Comment on above: Performed By: #### C BC #### [facility] [address] [place] [address] Dr. Elda Caicedo MCH (RBC) [Entitic mass] 29.0 pg Normal 26.7-34.0 [facility] Comment on above: Performed By: #### C BC #### [facility] [address] [place] [address] Dr. Elda Caicedo MCHC (RBC) [Mass/Vol] 33.0 g/dL Normal 29.9-35.2 [facility] Comment on above: Performed By: #### C BC #### [facility] [address] [place] [address] Dr. Elda Caicedo MCV (RBC) [Entitic vol] 87.8 fL Normal 81.0-99.0 [facility] Comment on above: Performed By: #### C BC #### [facility] [address] [place] [address] Dr. Elda Caicedo MONO # 0.6 103/ul Normal 0.3-0.8 [facility] Comment on above: Performed By: #### C BC #### [facility] [address] [address] [address] Elda Caicedo Monocytes/100 WBC (Bld) 5.5 % Normal 1.7-12.0 [facility] Comment on above: Performed By: #### C BC #### [facility] [address] [address] [address] Elda Caicedo NEUT # 7.7 103/ul Critically high 1.4-6.5 [facility] Comment on above: Performed By: #### C BC #### [facility] [address] [place] [address] Dr. Elda Caicedo Neutrophils/100 WBC (Bld) 76.7 % Critically high 43.0-75.0 [facility] Comment on above: Performed By: #### C BC #### [facility] [address] [place] [address] Dr. Elda Caicedo Platelet mean volume (Bld) [Entitic vol] 9.4 fL Critically low 9.5-13.5 [facility] Comment on above: Performed By: #### C BC #### [facility] [address] [place] [address] Dr. Elda Caicedo PLT 235 103/ul Normal 150-450 [facility] Comment on above: Performed By: #### C BC #### [facility] [address] [place] [address] Dr. Elda Caicedo RBC 3.45 106/ul Critically low 4.20-5.40 [facility] Comment on above: Performed By: #### C BC #### [facility] [address] [place] [address] Dr. Elda Caicedo WBC 10.0 103/ul Normal 4.0-11.0 [facility] Comment on above: Performed By: #### C BC #### [facility] [address] [place] [address] Dr. Elda Caicedo SCREENon 05-02-2022 SCREEN Negative Normal [facility] Comment on above: Performed By: #### F ETSLYNDSEYN #### [facility] [address] [place] [address] Dr. Elda Caicedo CBC AUTO DIFFon 05-01-2022 BASO # 0.0 103/ul Normal 0.0-0.1 [facility] Comment on above: Performed By: #### A FPMAT #### [facility] [address] [place] [address] Dr. Elda Caicedo Basophils/100 WBC (Bld) 0.4 % Normal 0.2-2.0 [facility] Comment on above: Performed By: #### A FPMAT #### [facility] [address] [place] [address] Dr. Elda Caicedo EO # 0.1 103/ul Normal 0.0-0.7 [facility] Comment on above: Performed By: #### A FPMAT #### [facility] [address] [place] [address] Dr. Elda Caicedo Eosinophils/100 WBC (Bld) 1.5 % Normal 0.9-7.0 [facility] Comment on above: Performed By: #### A FPMAT #### [facility] [address] [place] [address] Dr. Elda Caicedo Erythrocyte distribution width (RBC) [Ratio] 13.2 % Normal 11.0-15.0 [facility] Comment on above: Performed By: #### A FPMAT #### [facility] [address] [place] [address] Dr. Elda Caicedo Hematocrit (Bld) [Volume fraction] 36.1 % Normal 36.0-48.0 [facility] Comment on above: Performed By: #### A FPMAT #### [facility] [address] [place] [address] Dr. Elda Caicedo Hemoglobin (Bld) [Mass/Vol] 12.1 g/dL Normal 12.0-16.0 [facility] Comment on above: Performed By: #### A FPMAT #### [facility] [address] [place] [address] Dr. Elda Caicedo IG # 0.06 10e3/ul Critically high 0.00-0.03 [facility] Comment on above: Performed By: #### A FPMAT #### [facility] [address] [place] [address] Dr. Elda Caicedo IG % 0.8 % Critically high 0.0-0.5 [facility] Comment on above: Performed By: #### A FPMAT #### [facility] [address] [place] [address] Dr. Elda Caicedo LYMPH # 1.9 103/ul Normal 1.2-3.8 [facility] Comment on above: Performed By: #### A FPMAT #### [facility] [address] [place] [address] Dr. Elda Caicedo Lymphocytes/100 WBC (Bld) 26.1 % Normal 20.5-60.0 [facility] Comment on above: Performed By: #### A FPMAT #### [facility] [address] [place] [address] Dr. Elda Caicedo MANUAL DIFF REQ NO Normal [facility] Comment on above: Performed By: #### A FPMAT #### [facility] [address] [place] [address] Dr. Elda Caicedo MCH (RBC) [Entitic mass] 29.3 pg Normal 26.7-34.0 [facility] Comment on above: Performed By: #### A FPMAT #### [facility] [address] [place] [address] Dr. Elda Caicedo MCHC (RBC) [Mass/Vol] 33.5 g/dL Normal 29.9-35.2 [facility] Comment on above: Performed By: #### A FPMAT #### [facility] [address] [place] [address] Dr. Elda Caicedo MCV (RBC) [Entitic vol] 87.4 fL Normal 81.0-99.0 [facility] Comment on above: Performed By: #### A FPMAT #### [facility] [address] [place] [address] Dr. Elda Caicedo MONO # 0.5 103/ul Normal 0.3-0.8 [facility] Comment on above: Performed By: #### A FPMAT #### [facility] [address] [place] [address] Dr. Elda Caicedo Monocytes/100 WBC (Bld) 6.3 % Normal 1.7-12.0 [facility] Comment on above: Performed By: #### A FPMAT #### [facility] [address] [place] [address] Dr. Elda Caicedo NEUT # 4.7 103/ul Normal 1.4-6.5 [facility] Comment on above: Performed By: #### A FPMAT #### [facility] [address] [place] [address] Dr. Elda Caicedo Neutrophils/100 WBC (Bld) 64.9 % Normal 43.0-75.0 [facility] Comment on above: Performed By: #### A FPMAT #### [facility] [address] [place] [address] Dr. Elda Caicedo Platelet mean volume (Bld) [Entitic vol] 9.4 fL Critically low 9.5-13.5 [facility] Comment on above: Performed By: #### A FPMAT #### [facility] [address] [place] [address] Dr. Elda Caicedo PLT 302 103/ul Normal 150-450 [facility] Comment on above: Performed By: #### A FPMAT #### [facility] [address] [place] [address] Dr. Elda Caicedo RBC 4.13 106/ul Critically low 4.20-5.40 [facility] Comment on above: Performed By: #### A FPMAT #### [facility] [address] [place] [address] Dr. Elda Caicedo WBC 7.2 103/ul Normal 4.0-11.0 [facility] Comment on above: Performed By: #### A FPMAT #### [facility] [address] [place] [address] Dr. Elda Caicedo Covid-19 PCR (CVDTBH)on 04-17 SARS-CoV-2 (COVID-19) RNA SHARRI+probe Ql (Unsp spec) Not detected Normal NOT DETECTED [facility] Comment on above: Result Comment: When diagnostic [...] for this test is supported by the Relocation Manager of Health and Human Service's declaration that [...] used). Performed By: #### A FPMAT #### [facility] [address] [place] [address] Dr. Elda Caicedo DRUG SCREEN RAPID (URINE)on 05-01-2022 AMP Negative Normal NEGATIVE [facility] Comment on above: Performed By: #### A FPMAT #### [facility] [address] [place] [address] Dr. Elda Caicedo BAR Negative Normal NEGATIVE [facility] Comment on above: Performed By: #### A FPMAT #### [facility] [address] [place] [address] Dr. Elda Caicedo BUP Negative Normal NEGATIVE [facility] Comment on above: Performed By: #### A FPMAT #### [facility] [address] [place] [address] Dr. Elda Caicedo BZO Negative Normal NEGATIVE [facility] Comment on above: Performed By: #### A FPMAT #### [facility] [address] [place] [address] Dr. Elda Caicedo TERE Negative Normal NEGATIVE [facility] Comment on above: Performed By: #### A FPMAT #### [facility] [address] [place] [address] Dr. Elda Caicedo CUT-OFFS SEE BELOW Normal [facility] Comment on above: Result Comment: [...] ng/mL Performed By: #### A FPMAT #### [facility] [address] [place] [address] Dr. Elda Caicedo DRUG CUT HEADER DRUG CLASS TEST SYSTEM CUT-OFF CONCENTRATIONS ARE FOLLOWS: Normal [facility] Comment on above: Performed By: #### A FPMAT #### [facility] [address] [place] [address] Dr. Elda Caicedo mAMP Negative Normal NEGATIVE [facility] Comment on above: Performed By: #### A FPMAT #### [facility] [address] [place] [address] Dr. Elda Caicedo MTD Negative Normal NEGATIVE [facility] Comment on above: Performed By: #### A FPMAT #### [facility] [address] [place] [address] Dr. Elda Caicedo OPI Negative Normal NEGATIVE [facility] Comment on above: Performed By: #### A FPMAT #### [facility] [address] [place] [address] Dr. Elda Caicedo OXY Negative Normal NEGATIVE [facility] Comment on above: Performed By: #### A FPMAT #### [facility] [address] [place] [address] Dr. Elda Caicedo PCP Negative Normal NEGATIVE [facility] Comment on above: Performed By: #### A FPMAT #### [facility] [address] [address] [address] Elda Caicedo PPX Negative Normal NEGATIVE [facility] Comment on above: Performed By: #### A FPMAT #### [facility] [address] [address] [address] Elda Caicedo TCA Negative Normal NEGATIVE [facility] Comment on above: Performed By: #### A FPMAT #### [facility] [address] [address] [address] Elda Caicedo THC Negative Normal NEGATIVE [facility] Comment on above: Performed By: #### A FPMAT #### [facility] [address] [address] [address] 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 Furhter workup at [facility] physicians request. ABO Rh Typing B Rh Negative Normal [facility] Comment on above: Performed By: #### T NS #### [facility] [address] [place] [address] Dr. Elda Caicedo GROUP B STREP CULTUREon 03-19 S. agalactiae Ag Ql (Unsp spec) Culture Observations: NEGATIVE FOR GROUP B STREPTOCOCCUS. Normal [facility] Comment on above: Performed By: #### C BC #### [facility] [address] [place] [address] Dr. Elda Caicedo TYPE AND SCREENon 02-26-2022 TYPE AND SCREEN Negative Normal [facility] Comment on above: Performed By: #### T NS #### [facility] [address] [place] [address] Dr. Elda Caicedo UA (CLEAN/CATCH) WRAPPER CASHIER/MICRO I F IND.on 02-26-2022 Bilirubin Ql (U) Negative Normal NEGATIVE [facility] Comment on above: Performed By: #### C BC #### [facility] [address] [place] [address] Dr. Elda Caicedo Clarity (U) CLEAR Normal CLEAR [facility] Comment on above: Performed By: #### C BC #### [facility] [address] [address] [address] Elda Caicedo Color (U) LT. YELLOW Normal YELLOW [facility] Comment on above: Performed By: #### C BC #### [facility] [address] [place] [address] Dr. Elda Caicedo Glucose Ql (U) Negative Normal NEGATIVE [facility] Comment on above: Performed By: #### C BC #### [facility] [address] [place] [address] Dr. Elda Caicedo Hemoglobin Ql (U) Negative Normal NEGATIVE [facility] Comment on above: Performed By: #### C BC #### [facility] [address] [place] [address] Dr. Elda Caicedo Ketones Ql (U) TRACE Abnormal NEGATIVE [facility] Comment on above: Performed By: #### C BC #### [facility] [address] [place] [address] Dr. Elda Caicedo LEUKOCYTES Negative Normal NEGATIVE [facility] Comment on above: Performed By: #### C BC #### [facility] [address] [place] [address] Dr. Elda Caicedo Nitrite Ql (U) Negative Normal NEGATIVE [facility] Comment on above: Performed By: #### C BC #### [facility] [address] [place] [address] Dr. Elda Caicedo pH (U) 6.0 [pH] Normal 5-9 [facility] Comment on above: Performed By: #### C BC #### [facility] [address] [place] [address] Dr. Elda Caicedo SPEC GRAVITY 1.010 Normal 1.005-<=1.02 5 [facility] Comment on above: Performed By: #### C BC #### [facility] [address] [place] [address] Dr. Elda Caicedo UA PROTEIN Negative Normal NEGATIVE/ TRACE [facility] Comment on above: Performed By: #### C BC #### [facility] [address] [place] [address] Dr. Elda Caicedo UR MICRO IND NOT INDICATED Normal [facility] Comment on above: Performed By: #### C BC #### [facility] [address] [place] [address] Dr. Elda Caicedo Urobilinogen Qn (U) 0.2 {Nathan'U}/dL Normal 0.2 - 1. 0 [facility] Comment on above: Performed By: #### C BC #### [facility] [address] [place] [address] Dr. Elda Caicedo GLUCOSE - 1HRon 02-15-2022 Glucose [Mass/Vol] 135 mg/dL Critically high 74-106 [facility] Comment on above: Performed By: #### G LU1HR #### [facility] [address] [place] [address] Dr. Elda Caicedo HEMOGRAM AND PLATELon 2021 Hematocrit (Bld) [Volume fraction] 34.1 % Critically low 36.0-48.0 [facility] Comment on above: Performed By: #### A FPMAT #### [facility] [address] [place] [address] Dr. Elda Caicedo Hemoglobin (Bld) [Mass/Vol] 11.5 g/dL Critically low 12.0-16.0 [facility] Comment on above: Performed By: #### A FPMAT #### [facility] [address] [place] [address] Dr. Elda Caicedo MCH (RBC) [Entitic mass] 31.3 pg Normal 26.7-34.0 [facility] Comment on above: Performed By: #### A FPMAT #### [facility] [address] [place] [address] Dr. Elda Caicedo MCHC (RBC) [Mass/Vol] 33.7 g/dL Normal 29.9-35.2 [facility] Comment on above: Performed By: #### A FPMAT #### [facility] [address] [place] [address] Dr. Elda Caicedo MCV (RBC) [Entitic vol] 92.7 fL Normal 81.0-99.0 [facility] Comment on above: Performed By: #### A FPMAT #### [facility] [address] [address] [address] Elda Caicedo PLT 233 103/ul Normal 150-450 [facility] Comment on above: Performed By: #### A FPMAT #### [facility] [address] [address] [address] Elda Caicedo RBC 3.68 106/ul Critically low 4.20-5.40 [facility] Comment on above: Performed By: #### A FPMAT #### [facility] [address] [address] [address] Elda Caicedo WBC 5.5 103/ul Normal 4.0-11.0 [facility] Comment on above: Performed By: #### A FPMAT #### [facility] [address] [place] [address] Dr. Elda Caicedo Consent Formson 01-03-2022 Consent Forms [id number] #[id number] Normal [facility] US PREG ANATOMY SINGLEon US PREG ANATOMY [...] OLIVIA LOTT Date: 2021-12-24 18:38 Normal [facility] AFP MATERNAL FOR SPINA BIFID Aon 12-23-2021 AFP MoM 1.56 Normal [facility] Comment on above: Performed By: #### A FPMAT #### [facility] [address] [place] [address] Dr. Elda Caicedo AFP Value 92.5 ng/mL Normal [facility] Comment on above: Performed By: #### A FPMAT #### [facility] [address] [address] [address] Elda Caicedo AFP, Serum for Spina Bifida Report Normal [facility] Comment on above: Performed By: #### A FPMAT #### [facility] [address] [place] [address] Dr. Elda Caicedo Comment Comment Normal [facility] Comment on above: Result Comment: Marlo Blackwell, Ph.D., [facility] Director . References: Available Upon Request. . Multiples Of Median Cutoffs For AFP Elevations Dyer 2.5 Black 2.8 IDD 2.0 Twins 4.5 Abbreviation Definitions IDD - Insulin Dep Diabetes OSBR - Open Spina Bifida Risk . For further inquiries contact [employer] at [phone]. . This test was developed and its performance characteristics determined by [employer]. It has not been cleared or approved by the Food and Drug Administration. Performed By: #### A FPMAT #### [facility] [address] [address] [address] Elda Caicedo Gest Age Collection Date 19.3 weeks Normal [facility] Comment on above: Performed By: #### A FPMAT #### [facility] [id number] Elda Caicedo Gestat, Age Based on MICHEL Normal [facility] Comment on above: Result Comment: 04/18 Recalculations are not recommended when gestational dating by LMP and ultrasound are within 10 days. Performed By: #### A FPMAT #### [facility] [address] [address] [address] Elda Caicedo Insulin Dep Diabetes No Normal [facility] Comment on above: Performed By: #### A FPMAT #### [facility] [address] [address] [address] Elda Caicedo Interpretation Comment Normal [facility] Comment on above: Result Comment: Inte rpretation: [...] Customer Services to discuss available options. The [employer] recommends amniocentesis be offered to women age 35 and older. Performed By: #### A FPMAT #### [facility] [id number] Elda Caicedo [age] Normal [facility] Comment on above: Performed By: #### A FPMAT #### [facility] [id number] Elda Caicedo Multiple Gestation No Normal [facility] Comment on above: Performed By: #### A FPMAT #### [facility] [address] [address] [address] Elda Caicedo OSBR Risk 1 IN 2331 Normal [facility] Comment on above: Performed By: #### A FPMAT #### [facility] [address] [address] [address] Elda Caicedo PDF . Normal [facility] Comment on above: Performed By: #### A FPMAT #### [facility] [address] [address] [address] Elda Caicedo Race Normal [facility] Comment on above: Performed By: #### A FPMAT #### [facility] [address] [address] [address] Elda Caicedo Test Results: Negative Normal [facility] Comment on above: Performed By: #### A FPMAT #### [facility] [address] [place] [address] Dr. Elda Caicedo Pap IG,rfx Aptima HPV all pt hon 12-05-2021 . . Normal [facility] Comment on above: Performed By: #### A FPMAT #### [facility] [address] [place] [address] Dr. Elda Caicedo DIAGNOSIS: Comment Abnormal [facility] Comment on above: Result Comment: EPIT HELIAL CELL ABNORMALITY. ATYPICAL SQUAMOUS CELLS OF UNDETERMINED SIGNIFICANCE (ASC-US). Performed By: #### A FPMAT #### [facility] [address] [place] [address] Dr. Elda Caicedo Electronically signed by: Comment Normal [facility] Comment on above: Result Comment: Rosalinda Browning MD, Pathologist Performed By: #### A FPMAT #### [facility] [address] [place] [address] Dr. Elda Caicedo HPV Aptima Negative Normal Negative [facility] Comment on above: Result Comment: This nucleic acid amplification test detects fourteen high-risk HPV types (16,18,31,33,35,39,45,51,52,56,58,59,66,68) without differentiation. Performed By: #### A FPMAT #### [facility] [address] [place] [address] Dr. Elda Caicedo Methodology: Comment Normal [facility] Comment on above: Result Comment: This liquid based ThinPrep(R) pap test was screened with the use of an image guided system. Performed By: #### A FPMAT #### [facility] [address] [place] [address] Dr. Elda Caicedo Note: Comment Normal [facility] Comment on above: Result Comment: The Pap smear is a screening test designed to aid in the detection of premalignant and malignant conditions of the uterine cervix. It is not a diagnostic procedure and should not be used as the sole means of detecting cervical cancer. Both false-positive and false-negative reports do occur. . Performed By: #### A FPMAT #### [facility] [address] [address] [address] Elda Caicedo Pathologist Provided ICD10 Comment Normal [facility] Comment on above: Result Comment: [id number]. [id number] Performed By: #### A FPMAT #### [facility] [address] [place] [address] Dr. Elda Caicedo Performed by: Comment Normal [facility] Comment on above: Result Comment: Cind jeffrey Vera, Art Therapist (ASCP) Performed By: #### A FPMAT #### [facility] [address] [place] [address] Dr. Elda Caicedo Recommendation: Comment Abnormal [facility] Comment on above: Result Comment: Sugg est follow up as clinically appropriate. Performed By: #### A FPMAT #### [facility] [address] [place] [address] Dr. Elda Caicedo Reflex Criteria: Comment Normal [facility] Comment on above: Result Comment: See below for HPV testing results. . Performed By: #### A FPMAT #### [facility] [address] [address] [address] Elda Caicedo Specimen adequacy: Comment Normal [facility] Comment on above: Result Comment: Sati sfactory for evaluation. No endocervical component is identified. Performed By: #### A FPMAT #### [facility] [address] [place] [address] Dr. Elda Caicedo CHLAMYDIA/GONOCOCCUS SHARRI (SW AB/URINE/PAPon 11-30-2021 Chlamydia trachomatis, SHARRI Negative Normal Negative [facility] Comment on above: Performed By: #### C BC #### [facility] [address] [place] [address] Dr. Elda Caicedo Neisseria gonorrhoeae, SHARRI Negative Normal Negative [facility] Comment on above: Performed By: #### C BC #### [facility] [address] [place] [address] Dr. Elda Caicedo VAGINITIS/VAGINOSIS DNA PROB Richard 11-29-2021 Dodie species Negative Normal Negative [facility] Comment on above: Performed By: #### V AGINT #### [facility] [address] [place] [address] Dr. Elda Caicedo Gardnerella vaginalis Negative Normal Negative [facility] Comment on above: Performed By: #### V AGINT #### [facility] [address] [place] [address] Dr. Elda Caicedo Trichomonas vaginalis Negative Normal Negative [facility] Comment on above: Performed By: #### V AGINT #### [facility] [address] [place] [address] Dr. Elda Caicedo HEP B SURFACE ANTIGEN SCREEN on 10-20-2021 HBsAg Screen Negative Normal Negative [facility] Comment on above: Performed By: #### C BC #### [facility] [address] [place] [address] Dr. Elda Caicedo HEPATITIS C VIRUS AB W/ REFL EX QUANTon 10-20-2021 HCV AB <0.1 Normal 0.0-0.9 [facility] Comment on above: Performed By: #### C BC #### [facility] [address] [place] [address] Dr. Elda Caicedo Interpretation: Comment Normal [facility] Comment on above: Result Comment: Nega tive Not infected with HCV, unless recent infection is suspected or other evidence exists to indicate HCV infection. Performed By: #### C BC #### [facility] [address] [place] [address] Dr. Elda Caicedo HIV 1 AND 2 WITH REFLEXon HIV Screen 4th Generation wRfx Non-Reactive Normal Non Reactive [facility] Comment on above: Result Comment: HIV Negative HIV-1/HIV-2 antibodies and HIV-1 p24 antigen were NOT detected. There is no laboratory evidence of HIV infection. Performed By: #### C BC #### [facility] [address] [place] [address] Dr. Elda Caicedo RPR QUANTon 10-20-2021 Rapid Plasma Reagin, Quant Non-Reactive Normal NonRea<1:1 [facility] Comment on above: Result Comment: Plea se Note: This test does not meet current guidelines for screening and diagnosis of syphilis. This test is intended for following treatment response in patients being treated for syphilis infection. To screen for syphilis infection, a reflex cascade that includes both RPR and a treponema-specific assay should be utilized, such as Treponema pallidum (Syphilis) Screening [place] (811254) or Rapid Plasma Reagin (RPR) Test With Reflex to Quantitative RPR and Confirmatory Treponema pallidum Antibodies (237466). Performed By: #### A FPMAT #### [facility] [address] [place] [address] Dr. Elda Caicedo RUBELLA AB IGGon 10-20-2021 Rubella Antibodies, IgG 5.69 index Normal Immune >0.99 [facility] Comment on above: Result Comment: Non- immune <0.90 Equivocal 0.90 - 0.99 Immune >0.99 Performed By: #### C BC #### [facility] [address] [place] [address] Dr. Elda Caicedo CBC AUTO DIFFon 10-19-2021 BASO # 0.0 103/ul Normal 0.0-0.1 [facility] Comment on above: Performed By: #### C BC #### [facility] [address] [place] [address] Dr. Elda Caicedo Basophils/100 WBC (Bld) 0.5 % Normal 0.2-2.0 [facility] Comment on above: Performed By: #### C BC #### [facility] [address] [place] [address] Dr. Elda Caicedo EO # 0.1 103/ul Normal 0.0-0.7 [facility] Comment on above: Performed By: #### C BC #### [facility] [address] [place] [address] Dr. Elda Caicedo Eosinophils/100 WBC (Bld) 1.4 % Normal 0.9-7.0 [facility] Comment on above: Performed By: #### C BC #### [facility] [address] [place] [address] Dr. Elda Caicedo Erythrocyte distribution width (RBC) [Ratio] 12.8 % Normal 11.0-15.0 [facility] Comment on above: Performed By: #### C BC #### [facility] [address] [place] [address] Dr. Elda Caicedo Hematocrit (Bld) [Volume fraction] 39.1 % Normal 36.0-48.0 [facility] Comment on above: Performed By: #### C BC #### [facility] [address] [place] [address] Dr. Elda Caicedo Hemoglobin (Bld) [Mass/Vol] 13.2 g/dL Normal 12.0-16.0 [facility] Comment on above: Performed By: #### C BC #### [facility] [address] [place] [address] Dr. Elda Caicedo IG # 0.02 10e3/ul Normal 0.00-0.03 [facility] Comment on above: Performed By: #### C BC #### [facility] [address] [place] [address] Dr. Elda Caicedo IG % 0.5 % Normal 0.0-0.5 [facility] Comment on above: Performed By: #### C BC #### [facility] [address] [place] [address] Dr. Elda Caicedo LYMPH # 1.5 103/ul Normal 1.2-3.8 [facility] Comment on above: Performed By: #### C BC #### [facility] [address] [place] [address] Dr. Elda Caicedo Lymphocytes/100 WBC (Bld) 34.9 % Normal 20.5-60.0 [facility] Comment on above: Performed By: #### C BC #### [facility] [address] [place] [address] Dr. Elda Caicedo MANUAL DIFF REQ NO Normal [facility] Comment on above: Performed By: #### C BC #### [facility] [address] [place] [address] Dr. Elda Caicedo MCH (RBC) [Entitic mass] 29.9 pg Normal 26.7-34.0 [facility] Comment on above: Performed By: #### C BC #### [facility] [address] [place] [address] Dr. Elda Caicedo MCHC (RBC) [Mass/Vol] 33.8 g/dL Normal 29.9-35.2 [facility] Comment on above: Performed By: #### C BC #### [facility] [address] [place] [address] Dr. Elda Caicedo MCV (RBC) [Entitic vol] 88.5 fL Normal 81.0-99.0 [facility] Comment on above: Performed By: #### C BC #### [facility] [address] [place] [address] Dr. Elda Caicedo MONO # 0.3 103/ul Normal 0.3-0.8 [facility] Comment on above: Performed By: #### C BC #### [facility] [address] [place] [address] Dr. Elda Caicedo Monocytes/100 WBC (Bld) 5.7 % Normal 1.7-12.0 [facility] Center Comment on above: Performed By: #### C BC #### [facility] [address] [place] [address] Dr. Elda Caicedo NEUT # 2.5 103/ul Normal 1.4-6.5 [facility] Comment on above: Performed By: #### C BC #### [facility] [address] [place] [address] Dr. Elda Caicedo Neutrophils/100 WBC (Bld) 57.0 % Normal 43.0-75.0 [facility] Comment on above: Performed By: #### C BC #### [facility] [address] [address] [address] Elda Caicedo Platelet mean volume (Bld) [Entitic vol] 8.7 fL Critically low 9.5-13.5 [facility] Comment on above: Performed By: #### C BC #### [facility] [address] [place] [address] Dr. Elda Caicedo PLT 272 103/ul Normal 150-450 [facility] Comment on above: Performed By: #### C BC #### [facility] [address] [place] [address] Dr. Elda Caicedo RBC 4.42 106/ul Normal 4.20-5.40 [facility] Comment on above: Performed By: #### C BC #### [facility] [address] [place] [address] Dr. Elda Caicedo WBC 4.4 103/ul Normal 4.0-11.0 [facility] Comment on above: Performed By: #### C BC #### [facility] [address] [place] [address] Dr. Elda Caicedo CULTURE URINEon 10-19-2021 CULTURE URINE Culture Observations: LIGHT GROWTH OF MIXED GENITAL TONYA. NO POTENTIAL PATHOGENS SEEN. Normal [facility] Comment on above: Performed By: #### U RCX #### [facility] [address] [place] [address] Dr. Elda Caicedo GLYCOHEMOGLOBIN A1Con 2021 ADA RECOMMENDATION SEE BELOW Normal [facility] Comment on above: Result Comment: ADA RECOMMENDED LIMIT 4.0 - 6.0 ADA THERAPEUTIC TARGET < 7.0 ACTION SUGGESTED > 7.0 Performed By: #### A 1C #### [facility] [address] [place] [address] Dr. Elda Caicedo Glucose [Mass/Vol] 100 mg/dL Normal [facility] Comment on above: Performed By: #### A 1C #### [facility] [address] [place] [address] Dr. Elda Caicedo HbA1c (Bld) [Mass fraction] 5.1 % Normal 4.5-6.2 [facility] Comment on above: Performed By: #### A 1C #### [facility] [address] [place] [address] [address] Elda Caicedo TYPE AND SCREENon 10-19-2021 TYPE AND SCREEN Negative Normal [facility] Comment on above: Performed By: #### C BC #### [facility] [address] [place] [address] [address] Elda Caicedo US PREG TVon 10-03-2021 [...] by: FCO WYLIE Date: 2021-10-03 14:37 Normal [facility] Coding Summaryon 08-26-2021 Coding Summary HTMLBase 64 PnchvowdIXg3wMc+PGhl YWQ+CO1MHDBmZ99gpNAx pI5YG7fZLB6MKZWBJZHC PZ4GCE6izDA3DSqoG6Ue biAv CyngwTToUT79ZVe5MCV6 gWbaJNlnhU1feMZyF0e0 QtScMS01eM30AQmuYYAj XoJ6AzVkeynegDWm J3pwNvJcpNTxHxk+PHRh YmxlIHdpZHRoPScxMDAl GsGndOmtTQ0xHl9mYMJi LWNvbGxhcHNlOiBj a0dvGTRtQVywRQ8lsOsz F0AnuZS6HSUon1v7Ne24 dHI+OQJxYGI6zMaiEBwn o012DpPlj4rzVMW4 bIYcXAcpUGM4F79sz0H5 IHYcQMEaRWZ6sRY4qQ1a fDjogkzoH8ZoyKRmXvD5 JXB1eDPvbT7zwYxu qrsagV5wByt+F84SZR3Q XBEAXD8VQox0R1ZjUplx dHI+RB61JJOmQI05nZWp eITzc8irtXq6HoYm DKHkQKX3bNufXEhcs1Ly RXDlN27pdXGul7L4LBPi nAeqyDXtXhPbjCZ3pL9q CCygzpdvy9yzvtyu Mgzcp9dlfl39bF63F53n MRjxKLKgLOF3UWXwIPVc jEcmvt4sjD5rCf5+IDxj p2flx2zluYm6YzGz IQTdwkZfrGjsEFO6k4Do Yf37Q5DacNogc2GxFtq3 rv58zQGww7M8nSK7PKsf KIHzaP3iYYujMnU4 BMAtNyZdbP47vPViNSdm Ku9gvYbwaRctAD9kKZYc ooqzGBIoiN2bZBSnrLKr cGhfEY2iXXPobsrw t790KgTjIAQ7AERhtZDn A2XssR7vAbOtTLYfOATv G3XjwREuFRvmT801OPkv NnZ9NNJkewViA6Rc QIIqwHlcQjI8e1Q6Qy0U p8UmgxivQVL2EKlfDOD7 AbPwZqBiPqU7S2OwIyl9 WGAhqSgtVT1iH8Hd RJCgxnzyssdadNQ0NOOd SYLwgP72jCNnIIsaYe0c e9H9q635JIOvBWBivW54 Pq2ezMnhMFCydGKM jS7bkcpgr6snuhmuBpSh WBPtNLf4CUc8XSSowGvw QoDhHQF9TiN6MDL9qKDu xR5oxQkkzucllB8b Oyc+Q72tzA5qECM1NEZ2 ikhzBPAiieFkKD70PQ10 E6JdBiikqMJehQJ+PGRp yvGwqLryJS4fIeQf w1fnw3EdRSjyY3ZgAEQq KCuuGxh2AAEiIKY4tGE8 jF3rLIIpCObwz4Q6bVG0 N4RoifGnhh9sc7nf OXTpMCqyJ36mcREla1L5 BGGhlII4XKNqrZhaRfTf pO41Faw+FMBjvDxbw0Vn Tpyjd0uky2okqAn0 IjMwJSIgdmFsaWduPSJ0 e2ImTw40O73jVGsbGMCm SPKsKXJyNCQilChogt5n rC4jPv6+PGNvbCB3 wTC8yI8iMJMpMlC1PVzt R881FiPutWTrZifcr5lh v8qosPo7RhJwNPMshiUm rKekCXI8r5GdGw97 F86zQKyoVVZaBWAyKRDj ZXXtaOxmzv0lvO7lIn5+ TN6th2ghbg50dI29cOV+ NAGbLRY3qBlvKGft IJBpnG7mKJmpGbQ4ENBk WfVcjM47kSXbTXpbIx4m aXaiuIjnZY6bIBWtyqyp m288FpSud9klBVTx wYNtWDpmKDO5I02yk0F5 GHOuNBLaZCN2oFI4lJ8x bGlnbjogbGVmdDsgdmVy vZdtRDyaQOmaW099 IHRvcDsnPlBhdGllbnQg KfZsCJc8I8QmUhb7UVQg dUciAU6juXFhMVzrLp5k bFxfaSkjET4eTNSl ppayw120QoWvd0zcGDUa jQLnVIylXFH2K78ki1I6 FLEaBRUtZUB7dOM7kJ0c bGlnbjogbGVmdDsg wsZbfVoaTJcwTYhuF245 IHRvcDsnPkJpcnRoIERh bEB6WU43EB87wERac8Y4 bIU8T9ImOCUuntyb xqmylBC7HVFaVUNeoV45 Ii9eaEzlBh6kKJCoQDU6 AATmyYNwN5JdoL3uIuTw DFGlTONeR8EfdYHr DPnxQ683GLjcPjJ7WIMp cvGtD1HqSVNcnTuxGsL2 c1S4Dg7HU1R5OI18AE95 ePFyb4F1hJX7B3Cf QUYpbjlpmgkseAW6CHWw EFPffL14Zq5llRmoAp3o FVHsXPV4EQUvmYPbH1Yt yF9tCjWdVGNaXXRh T9YqvPEnTXctY944RDzx EaV6RDQixeTcP9NoHIBp iSdvJqH5a3A1Pr3XSWd4 IV10ZN04iXPsa1V9 hLR4Z6ZyZJKxlnwtovyg eJH1RVKdQQUiaD64Wn2e qOzpHa0gUPMvKZW9RGGu hZMmH7OyjK2xDlSu HADmVSHiV6VixQWdTGad D012LHqfRyG8SPEgbuWl C4QuKGQlySbaIlR8z9H4 Ii1OEIGwOA49SWJ2 mFP6VS53SO83D4FkIlmz dGFibGU+PHRhYmxlIHdp ZHRoPScxMDAlJyBzdHls QE8uUv3tRMZjEMYs gIsxqKNiJoFwu7wcNTRg GRsvRL8kjXwjN3JmyCN5 ULIpx2e7Nv46N14aY3Ne dXA+UEEblAO4kWQ1 vX7bJfNgPzW0OXwzF780 ErQqcSPdOqwet4xkm3lg fSp6OkC1MCChzvEmwBhv HJB3o1NwIg83T31p IHdpZHRoPSIxNSUiIHZh rEmxrr7fnI2rHg1+PGNv uGC8oXT3kE4iOlHmEeF1 LKkzC725EeScaXDb Yypri3kyk8bjcOh3IzPo CZTgibKdaGquQCX5y4Nx Fw28K2QhmVsce9VhZtc7 ba35dLKoq4D8uDP7 D7QgDVOlxgroxBZnbMkx FQ2qUSPtgrjsCUWgjK6m JDOyJ5m3HpCnUgO0HCmd Q9GnewK1FPLsiNYw SZhcOXK8O67ju7C8LGBj KKJcIFZ6dDJ5lZ3utPdb bjogbGVmdDsgdmVydGlj CHpqRSniO390ZFYg mKgwQLYxcO3hVMOpiEAo eJgwNY3bFESkoyurXlCV TAFKVnSAFQqzXB5MRuiL IKYUVDRMLT97HB81 fANej0A2jKB3L1WlYHOr wvxcombhhCY1GBNnKNRa tH16bXPuSYqdQc4nx6W3 x389BXGpUZVobV91 Pq5fuCfeRPGgwHLFbO1e jzqpf4edqdtmQvKyWWOy CDz6OZy5PVGopDeeVbVr UTN7GmT3XIL4rMFp xC6kpHinkchkfF9oOyc+ PTtcBIZvHBo1RzrllMZ+ CTKgXSE2hIdrUBrnTGCe yA1xFIZrJ2s6GjCh VqD1GBwqQ7XrHKMpmcyz En65gL9zAbPrMlI0IFip Q0QrutK7QJHfdUByIFcz FVQ5D02dm6J2HBDc VGBgLDA9nPH7vA0ysBin bjogbGVmdDsgdmVydGlj TBsvGAeiE341YOFjeIuz GhD6YQfqBUZnAR02 CB78hYLhr2Z6nSC3N5Tc JTXzbpuvcavraUP7KDFd MDGqiM13kZGxCBmmNu9w e8M6h309HHOeOTEp nG66Ju5fpCxkEUJozGKW tZ9twwdaq4grpwlbDcYl BPMbZVa8FAj6EBUzoYch ByQrBUH1SlY1XME5 iAClrC7arPrqbgspxE1f Oyc+AsYKXAvXTZ38HJ98 jZPbv0K3pGJ4K9BsXYGw opjfmvyhwGS2WHHv PGElwD76iXJzRWzfMw3s a9C8k529BKHmURFubT16 Zk4dzPczDCPohJRZdU7h lsonv9mmebroQkOv WPXcVJw2ESb4JMCxwAyw XxLxDOD0DfQ3HAQ7xKKt rR6lwNslesbgwM1eOel+ J9N0T2HnTohihXL+ BC88WBVlKK52yEExrEIp b3ixbOr1NqMdNNTuUJU3 dEpqSLjrt8GwQKVbE29g jZBoo2I3XUBpcSnw rNWsUaNabUE5eX4zYGvk yzszr8pvnipiQzmcc2iq km34dG23V44dCNfmUZQy PSIzMCUiIHZhbGln oh8jnS0fWs3+PGNvbCB3 kZJ3fD5gNlHkYgJ4TBhz C095GfOgbAEhVbbbg6mr b2uiwPk0ElWeYFUw dgYzlStkOOO0a5HyMe12 J69aTCmyDYQzFLNoVXWv ZODmkYgzhf0vaW3vYj6+ ND4hk2dxgs81vD80 dHI+FYOxUCU9zKwbKMaj HUDofD8fKMnkXxR9SZFo NoNzsL63wTXyHKotRv0n tQkexFnzRV4qSVZy anryj326BfBsn3tySUFb dKHvNKnsWED3C14oj7K6 VFHcFULeRMI3cBN6zY0j bGlnbjogbGVmdDsg krOdgZhyDMpwKLwcL302 DDAwjGcjRhAzvPLhT4jf iyADJS6fQnnvmGM+PHRk KNQ3bCwaWOseDCWc kH9hWKDsU8t4XbBkEuH6 OFfkB2AvvsK8GCAkbTIi OGGtgIXRhJ9blnfxc1rk cjogIzAwMDAwMDt0 RMt4AWYwuPksPdDhPKE9 FwK0WQU2gJUlrS2peVst rjhsuH1rSwe+RklOOjwv dGQ+GYFvIQL9kAqn QHhbZLEcmL7dMZAkQ6o8 SnNqYpN3EQlnP2UoozC5 YOGgsMRqRFOacRHEyM9w vsdri7lethhvBhLi BOWwMLq1SIk1QNVpqXrt OrAxYLR3ToX1ENM5dVCj oO3lbIrcbhoavX9iCia+ TVJOOjwvdGQ+PHRk EVJ7dVmdNSfuEFNshE0o DFDwB8y1HqSlHdG2HOqm O1IjmyH8UMEgoEVwJHTn nJLIkX2tocjyo6yx meooMxWiJIIkMDw5LJy7 HSZvxIudIgQuCPK2JrP1 OTQ4cTUntX5hgVgaqgvv fD1lSwa+PJP2IWK3 NY86IP34H8YuDugzgLRp bGU+PHRhYmxlIHdpZHRo CTzeRAJlVrQnpVxlVW4e Od5vIVHlFSBqjYni cHN (more content not included)... Normal [facility] ED Clinical Summaryon 2021 ED Clinical Summary [facility] ? Urgent Care [address] [place] [id number] Clinical Summary PERSON INFORMATION Name: JODI COLORADO Age: 30 Years Sex: FEMALE : 1990 MRN: Acct#: Visit Reason: UC - Eye Redness; UC - Eye Redness; RIGHT EYE IRRITATION Arrival: 08/19/2021 12:52:37 Discharge: 08/19/2021 13:50:00 LOS: 000 00:58 Check In: 08/19/2021 12:52:37 Checkout: 08/19/2021 13:50:00 Address: [facility] [address] PCP: Jessica Roberts MD PROVIDER INFORMATION Provider Role Assigned Unassigned Lesvia Hills SCENIC ARTIST Nurse 08/19/2021 12:54:31 Ko Desir ED PA 08/19/2021 12:57:58 VITALS INFORMATION Vital Sign Triage Latest Temperature Tympanic Temperature Temporal Artery Pulse Rate O2 Sat 98 % 98 % Respiratory Rate Blood Pressure /68 mmHg /68 mmHg MEDICAL INFORMATION Medications Given: Allergy Information: No Known Medication Allergies PHYSICIAN DOCUMENTATION DISCHARGE INFORMATION: Discharge Disposition: Home Discharge Location: Home PATIENT EDUCATION INFORMATION Instructions: Bacterial Conjunctivitis, Adult, Cghp-yi-Tegh Follow-Up: With: Address: When: Jessica Roberts [address] [place], [place] [id number] [facility] (1) Comments: Begin on the the antibiotic drops take as written until gone If the symptoms persist or fail to resolve call to schedule follow up with Dr. Quezada back gray cloth washer [phone] office located at [address] [place] [address], otherwise follow-up with your primary care provider in 3-5 days Exercise good hygiene such as frequent handwashing, wiping off door handles Try not to touch the eye or near the eye. Can wash around the eye with warm water and no tears shampoo 3-4 times daily DIAGNOSIS: Right conjunctivitis Patient Understands: Yes - Patient/family/careg iver verbalizes understanding of instructions given Comment: Normal [facility] ED Patient Summaryon 022 ED Patient Summary [facility] ? Urgent Care [address] [place] [address] PATIENT DISCHARGE INSTRUCTIONS Patient Information Name: JODI COLORADO Age: 30 Years Date of : 1990 Reason For Visit: UC - Eye Redness; UC - Eye Redness; RIGHT EYE IRRITATION Arrival Time: 08/19/2021 12:52:37 Primary Care Physician: Jessica Roberts MD Attending Physician: Ko Desir Comment: Patient Education With: Address: When: Jessica Armando [address] [place] [address], [facility] [place] [address] [facility] (1) Comments: Begin on the the antibiotic drops take as written until gone If the symptoms persist or fail to resolve call to schedule follow up with Dr. Quezada back gray cloth washer [phone] office located at [address] [place] [address], otherwise follow-up with your primary care provider [...] to feel better. ? Take or apply qhch-kwp-whmkvil and prescription medicines only as told by [...] provider. Document Revised: 08/23/2019 Document Reviewed: 12/08/2018 [employer] Patient Education ? 2020 [employer] Medication Information: The exam and treatment you received today in the [facility] Emergency Department were for an urgent problem and are not intended as complete care. It is important for you to follow up with a doctor, nurse practitioner, or physician?s assistant professor of religion for ongoing care. If your symptoms become worse or yo (more content not included)... Normal [facility] Urgent Care Note- Provideron 08-19-2021 Urgent Care [...] . Impression and Plan Diagnosis Right conjunctivitis ([id number]-MW H10.9, Discharge, Medical) Plan Prescriptions: Launch prescriptions Pharmacy: polymyxin B-trimethoprim 10,000 units-1 mg/mL ophthalmic solution (Prescribe): 1 drop(s), Right eye, q6hr, for 10 day(s), 10 mL, 0 Refill(s). Patient was given the following educational materials: Bacterial Conjunctivitis, Adult, Xboe-kq-Nfnv. Follow up with: Jessica Roberts Begin on the the antibiotic drops take as written until gone If the symptoms persist or fail to resolve call to schedule follow up with Dr. Quezada back gray cloth washer [phone] office located at [address] [place] [address], otherwise follow-up with your primary care provider [...] [Verified on: 08/19/2021 14:34 EDT] Ko Desir [facility] [place] 022 Urgent Care Record [facility] ? Urgent Care [address] [place] [address] PATIENT DISCHARGE INSTRUCTIONS Patient Information Name: JODI COLORADO Age: 30 Years Date of : 1990 Reason For Visit: UC - Eye Redness; UC - Eye Redness; RIGHT EYE IRRITATION Arrival Time: 08/19/2021 12:52:37 Primary Care Physician: Jessica Roberts MD Attending Physician: Ko Desir Comment: Visit Diagnosis: Diagnoses This Visit Right conjunctivitis (H10.9) UC - Eye Redness ([id number]) UC - Eye Redness ([id number]) If you received any narcotics, sedation, or [...] legal documents With: Address: When: Jessica Roberts [address] [place], [place] [id number] Business (1) Comments: Begin on the the antibiotic drops take as written until gone If the symptoms persist or fail to resolve call to schedule follow up with Dr. Quezada back gray cloth washer [phone] office located at [address] [place] [address], otherwise follow-up with your primary care provider in 3-5 days Exercise good hygiene such as frequent handwashing, wiping off door handles Try not to touch the eye or near the eye. Can wash around the eye with warm water and no tears shampoo 3-4 times daily Medication Information: The exam and treatment you received today in the [facility] Urgent Care were for an urgent problem and are not intended as complete care. It is important for you to follow up with a doctor, nurse practitioner, or physician?s assistant professor of religion for ongoing care. If your symptoms become [...] so we can reach you if necessary. [facility] has provided you with a complete list of medications post discharge. Please inform your prevention rn/provider of your visit and for further instruction on these medications. Any specific questions regarding your chronic medications and dosages should be discussed with your primary care physician(s) and/or pharmacist. New Medications [id number], [address], [place] [id number], [phone] polymyxin B-trimethoprim ophthalmic (polymyxin B-trimethoprim 10,000 units-1 [...] Have dr (more content not included)... Normal [facility] Nicotine Metabolite, Urine L Con 07-13-2021 Cotinine LC Negative Invalid Interpretation Code [id number] [facility] Comment on above: Order Comment: order shows MMR to be drawn, patient states she didn't need it done, she gave the results to Zaid in HR this morning AP Result Comment: Perf ormed At: [facility] [place] [address] [facility] [place], [place] [id number] Magdy Recinos PhD Ph:[phone] Performed By: #### 1 [id number] #### [facility] (DEFAULT) [address] [place] [address] Vital Signs Date Time Vital Sign Value Performing Clinician Facility 04-20-2024 11:02-0500 Body height 165.1 cm Jessica Roberts MD Work Phone: [facility] 04-20-2024 11:02-0500 Body mass index (BMI) [Ratio] 23.3 kg/m2 Jessica Roberts MD Work Phone: [facility] 04-20-2024 11:02-0500 Body weight 63.5 kg Jessica Roberts MD Work Phone: [facility] 04-20-2024 11:02-0500 Diastolic blood pressure 75 mm[Hg] Jessica Roberts MD Work Phone: [facility] 04-20-2024 11:02-0500 Heart rate 73 /min Jessica Roberts MD Work Phone: [facility] 04-20-2024 11:02-0500 Systolic blood pressure 105 mm[Hg] Jessica Roberts MD Work Phone: [facility] 10-23-2023 09:40-0400 Body height 165.1 cm [facility] 10-23-2023 09:40-0400 Body mass index (BMI) [Ratio] 22.4 kg/m2 [facility] 10-23-2023 09:40-0400 Body weight 61.23 kg [facility] 10-23-2023 09:40-0400 Diastolic blood pressure 74 mm[Hg] [facility] 10-23-2023 09:40-0400 Heart rate 80 /min [facility] 10-23-2023 09:40-0400 Systolic blood pressure 107 mm[Hg] [facility] 10-05-2023 15:22-0400 Body height 165.1 cm [facility] 10-05-2023 15:22-0400 Body mass index (BMI) [Ratio] 22.8 kg/m2 [facility] 10-05-2023 15:22-0400 Body temperature 98.8 [degF] [facility] 10-05-2023 15:22-0400 Body weight 62.14 kg [facility] 10-05-2023 15:22-0400 Diastolic blood pressure 52 mm[Hg] [facility] 10-05-2023 15:22-0400 Heart rate 99 /min [facility] 10-05-2023 15:22-0400 Respiratory rate 18 /min [facility] 10-05-2023 15:22-0400 SaO2% (BldA) [Mass fraction] 99 % [facility] 10-05-2023 15:22-0400 Systolic blood pressure 92 mm[Hg] [facility] 12-23-2021 17:06-0400 Body weight 59.[address] ARSENIO TATE . [facility] Comment on above: Performed By: #### AFPMAT #### [facility] [address] [place] [address] Dr. Elda Caicedo Encounters Encounter Date Encounter Type Care Provider Facility Start: 07-17-2024 End: 07-17-2024 Clinisync Result Encounter Arsenio Bebeto DO Work Phone: [facility] Unsolicited Start: 07-17-2024 End: 07-17-2024 Clinisync Result Encounter Arsenio Bebeto DO Work Phone: [facility] Unsolicited Start: 07-15-2024 End: 07-15-2024 Clinisync Result Encounter Arsenio Bebeto DO Work Phone: [facility] Unsolicited Start: 07-15-2024 End: 07-15-2024 [facility]ync Result Encounter Arsenio Bebeto DO Work Phone: [facility] Unsolicited Start: 07-13-2024 End: 07-13-2024 Clinisync Result Encounter Arsenio Bebeto DO Work Phone: [facility] Unsolicited Start: 07-13-2024 End: 07-13-2024 Clinisync Result Encounter Arsenio Bebeto DO Work Phone: [facility] Unsolicited Start: 07-11-2024 End: 07-11-2024 Clinisync Result Encounter Arsenio Bebeto DO Work Phone: [facility] Unsolicited Start: 07-11-2024 End: 07-11-2024 Clinisync Result Encounter Arsenio Bebeto DO Work Phone: [facility] Unsolicited Start: 06-09-2024 End: 06-09-2024 ambulatory Jessica Roberts MD Work Phone: [facility] Work Phone: Start: 06-09-2024 End: 06-09-2024 Patient encounter procedure Jessica Roberts MD Work Phone: [facility] Work Phone: Start: 05-23-2024 End: 05-23-2024 Patient encounter procedure Jessica Roberts MD Work Phone: [facility] Work Phone: Start: 05-23-2024 End: 05-23-2024 ambulatory Jessica Roberts MD Work Phone: [facility] Work Phone: Start: 04-20-2024 End: 04-20-2024 Patient encounter procedure Jessica Roberts MD Work Phone: [facility] Work Phone: Start: 12-23-2023 End: 12-23-2023 ambulatory NELDA MIRAMONTES Not Available Start: 10-26-2023 End: 10-26-2023 ambulatory JESSICA ROBERTS Not Available Start: 10-23-2023 Patient encounter status [facility] Start: 10-23-2023 End: 10-23-2023 ambulatory [facility] Work Phone: Start: 10-23-2023 End: 10-23-2023 Encounter for general adult medical examination without abnormal findings [facility] Start: 10-23-2023 End: 10-23-2023 Patient encounter procedure [facility] Work Phone: Start: 10-20-2023 End: 10-20-2023 ambulatory ARSENIO TATE Not Available Start: 10-05-2023 End: 10-05-2023 ambulatory [facility] Work Phone: Start: 10-05-2023 End: 10-05-2023 Patient encounter procedure [facility] Work Phone: Start: 07-06-2023 End: 07-06-2023 ambulatory FLORA PUENTE Not Available Start: 05-05-2023 End: 05-05-2023 ambulatory ARSENIO TATE Not Available Start: 08-06-2022 End: 08-06-[address] ARSENIO TATE . Facility:[facility] Start: 05-05-2022 End: 05-05-[address] JESSICA ROBERTS Facility:[facility] Start: 05-01-2022 End: 05-03-2022 Evaluation and management of inpatient DR ARSENIO TATE . Facility:[facility] Start: 04-21-2022 Evaluation and management of inpatient DR JESSICA ROBERTS Facility:[facility] Start: 04-09-2022 End: 04-09-[address] ARSENIO TATE . Facility:[facility] Start: 02-26-2022 End: 02-28-[address] ARSENIO TATE . Facility:[facility] Start: 02-26-2022 End: 02-26-[address] MIREYA NAIK . Facility:[facility] Start: 02-15-2022 End: 02-16-[address] ARSENIO TATE . Facility:[facility] Start: 12-24-2021 End: 12-25-[address] OLIVIA LOTT Facility:[facility] Start: 12-14-2021 End: 12-15-[address] ARSENIO TATE . Facility:[facility] Start: 11-27-2021 End: 11-27-[address] ARSENIO TATE . Facility:[facility] Start: 10-19-2021 End: 10-20-[address] ARSENIO TATE . Facility:[facility] Start: 10-03-2021 End: 10-04-[address] ARSENIO TATE . Facility: Procedures Date Procedure Procedure Detail Performing Clinician Start: 07-17-2024 TB PREG QUANT HCG Core y Bebeto DO Work Phone: Start: 07-15-2024 TB PREG QUANT HCG Core y Bebeto DO Work Phone: Start: 07-13-2024 TB PREG QUANT HCG Core y Bebeto DO Work Phone: Start: 07-11-2024 TB PREG QUANT HCG Core y Bebeto DO Work Phone: Start: 05-23-2024 Bilateral mammography Davide Roberts MD Work Phone: Start: 05-23-2024 Ultrasonography of r ight breast Jessica Roberts MD Work Phone: Start: 10-05-2023 Quick Strep (POC) Start: 08-05-2022 Microscopic observat ion [Identifier] in Cervix by Cyto stain Arsenio Tate DO Work Phone: Start: 05-01-2022 Delivery of Products of Conception, External Approach DR ARSENIO TATE . Start: 05-01-2022 Repair Perineum Musc le, Open Approach DR ARSENIO TATE . Start: 05-01-2022 Drainage of Amniotic Fluid, Therapeutic from Products of Conception, Via Natural or Artificial Opening DR ARSENIO TATE . Plan of Treatment Date Care Activity Detail Author Start: 08-05-2025 Screening for malign ant neoplasm of cervix [facility] Start: 12-28-2024 End: 12-28-2024 Patient encounter procedure 12/28/2024 8:30 AM EDT Office Visit [facility] [address] [place] [address] Nelda Miramontes PA [address] [place] [address] [facility] Start: 10-31-2024 End: 10-31-2024 Patient encounter procedure 10/31/2024 8:30 AM EDT Office Visit [facility] [address] [place] [address] Arsenio Tate, DO [address] [place] [address] [facility] Start: 07-29-2024 End: 07-29-2024 ambulatory 07/29/2024 10:00 AM EDT Initial [facility] [address] [place] [id number] [facility] Start: 07-29-2024 End: 07-29-2024 Professional / ancillary services management 07/29/2024 9:30 AM EDT Ancillary Procedure [facility] [address] [place] [id number] [facility] Start: 01-17-2024 Influenza vaccination Influenz a Vaccine (#1) [facility] Start: 2022 Screening for malign ant neoplasm of cervix HPV/Cotest [facility] [place] Extrem[facility] Immunizations Immunization Date Immunization Notes Care Provider Marbin ceballos 04-06-2023 influenza virus vaccine, unspecified formulation Arsenio Tate DO Work Phone: [facility] 11-09-2019 diphtheria, tetanus toxoids and acellular pertussis vaccine, unspecified formulation [facility] Payers Date Payer Category Payer Self-pay 2024 Private Health Insurance [employer] [id number] 2023 Unknown [id number] 2023 Unknown [id number] 1990 Unknown [id number] .1.074221.3.579.2. 593 1992 Unknown [id number] 2.840.1.680640.3.579.2. 593 1992 Unknown [id number] 2.840.1.947160.3.579.2. 593 1992 Unknown [id number] 2840.1.497400.3.579.2. 593 1992 Unknown [id number] 2840.1.087881.3.579.2. 593 1992 Unknown [id number] 2.16.840.1.893722.3.579.2. 593 1992 Unknown [id number] 2.16.840.1.688252.3.579.2. 593 1992 Unknown [id number] 2.16.840.1.839910.3.579.2. 593 1992 Unknown [id number] 2.16.840.1.724384.3.579.2. 593 1992 Unknown [id number] 2.16.840.1.355056.3.579.2. 593 1992 Unknown [id number] 2.16.840.1.956193.3.579.2. 593 1992 Unknown [id number] 2.16.840.1.958064.3.579.2. 593 1992 Unknown [id number] 2.16.840.1.444583.3.579.2. 593 1992 Unknown [id number] 2.16.840.1.649453.3.579.2. 1259 1992 Unknown [id number] 2.16.840.1.245487.3.579.2. 1259 1992 Unknown [id number] 2.16.840.1.533778.3.579.2. 1259 1992 Unknown [id number] 2.16840.1.427413.3.579.2. 1259 1992 Unknown [id number] 2.16.840.1.937611.3.579.2. 1259 1959 Unknown [id number] 1959 Unknown [id number] 1959 Unknown [id number] Unknown [id number] 2.16.840.1.198613.3.579.2. 531 Social History Date Type Detail Facility Start: 11-20-2022 End: 10-05-2023 Tobacco smoking status AZIS Never smoked tobacco (finding) [facility] Start: 1990 Sex Assigned At Female [facility] Start: 05-24-2024 End: 06-09-2024 Sex Female (finding) [facility] Start: 11-20-2022 Tobacco use and exposure Smokeless tobacco non-user [facility] Start: 12-23-2023 Alcoholic beverage intake Current drinker of alcohol (finding) [facility] Start: 06-29-2023 End: 12-23-2023 [facility] of [facility] Start: 06-29-2023 End: 12-23-2023 Humiliation, Afraid, Rape, and Kick questionnaire [HARK] [facility] Within the last year , have you been afraid of your partner or ex-partner? No [facility] Do you belong to any clubs or organizations such as protestant groups, unions, fraternal or athletic groups, or school groups? Yes [facility] Are you now , , , , never or living with a partner? [facility] How often to you hav e a drink containing alcohol? 2-4 times a month [facility] How many standard dr inks containing alcohol do you have on a typical day? 1 or 2 [facility] How often do you hav e 6 or more drinks on 1 occasion? Never [facility] How hard is it for y ou to pay for the very basics like food, housing, medical care, and heating Not very hard [facility] Do you feel stress - tense, restless, nervous, or anxious, or unable to sleep at night because your mind is troubled all the time - these days [OSQ] Not at all [facility] (I/We) worried eddy er (my/our) food would run out before (I/we) got money to buy more. Never true [facility] In the past 12 month s, has lack of transportation kept you from medical appointments or from getting medications? No [facility] Start: 11-20-2022 Alcohol Comment occasiona alcohol use ; caffeine: none [facility] Start: 1990 Sex assigned at Not on file [facility] Evaluation note 04-20-2024 Note Date & Type Note Facility 04-20-2024 Evaluation note Diagnosis Onset Date Resolution Anxiety about health acute Dece mber 2023 11:01am Lump of right breast acute Dece [facility] 2023 11:01am [facility] Work Phone: Clinical Note 08-19-2021 Note Date & Type [...] to feel better. ? Take or apply afxy-ybp-vvojdlf and prescription medicines only as told by [...] provider. Document Revised: 08/23/2019 Document Reviewed: 12/08/2018 [employer] Patient Education ? 2020 [employer] [facility] Evaluation note Note Date & Type Note Facility Evaluation note No assessment information availa [facility] Work Phone: Evaluation note Note Date & Type Note Facility Evaluation note Diagnosis Onset Date Acute streptococcal pharyngitis acute Mass of left lower extremity acute Wellness examination [facility] Work Phone: Summary Purpose Family History Relationship Condition Age at Onset Recorded Date/T beryl Not Specified Heart disease Unknown Hypertension Unknown Myocardial infarction Unknown Relationship Condition Age at Onset Recorded Date/T beryl maternal grandmother Heart disease Unknown Hypertension Unknown Myocardial infarction Unknown Advance Directives Advance Directive Response Recorded Date/ Time Advance Directives No October 04 3:16pm Advance Directive Response Recorded Date/ Time Advance Directives No October 04 2:16pm Chief Complaint and Reason for Visit Chief Complaint sore throat, fever Chief Complaint sore throat, fever wellness Reason for Visit Acute streptococcal pharyngitis Mass of left lower extremity Wellness examination Chief Complaint Admit Date Anxiety April 20, 2024 1 1:01am N63.11 May 23, 2024 2: 25pm Reason for Visit Admit Date Anxiety about health April 20, 2024 11:01am Lump of right breast April 20, 2024 11:01am Chief Complaint Admit Date Anxiety April 20, 2024 1 1:01am N63.11 May 23, 2024 2: 25pm VIRTUAL, sinus infection, sinus pressure June 09, 2024 2:17pm Additional Source Comments INFORMATION SOURCE (unrecogn ized section and content) DATE CREATED AUTHOR 01/07/2022 [facility] DATE CREATED AUTHOR AUTHOR'S ORGANIZ ATION 08/19/2022 [facility] DATE CREATED AUTHOR AUTHOR'S ORGANIZ ATION 12/26/2023 [facility] EPIC DATE CREATED AUTHOR AUTHOR'S ORGANIZ ATION 05/29/2024 [facility] Care Teams (unrecognized sec tion and content) Team Status: Active Member Role Status Dates [facility] Primary Care Provider Active Team Status: Inactive Member Role Status Dates Manuela Corado APRN Attending Provider Active S tart: October 05, 2023 End: October 05, 2023 [facility] Primary Care Provider Active Start: October 05, 2023 End: October 05, 2023 Team Status: Inactive Member Role Status Dates Jessica Roberts MD Attending Provider Active St art: October 23, 2023 End: October 23, 2023 [facility] Primary Care Provider Active Start: October 23, 2023 End: October 23, 2023 Team Status: Active Member Role Status Dates Jessica Roberts MD Primary Care Provider Active Team Status: Inactive Member Role Status Dates Jessica Roberts MD Primary Care Provide r, Attending Provider Active Start: April 20, 2024 End: April 20, 2024 Team Status: Inactive Member Role Status Dates Jessica Roberts MD Primary Care Provide r, Attending Provider Active Start: May 23, 2024 End: May 23, 2024 Team Status: Inactive Member Role Status Dates Jessica Roberts MD Primary Care Provide r, Attending Provider Active Start: June 09, 2024 End: June 09, 2024 Registered Public Health Nurse Relationship Specialty Start Date End Date Jessica Roberts MD [address] [place] [id number] PCP - General 11/17/22 Goals (unrecognized section and content) Goals may be documented in a n alternate sectionGoals may be documented in an alternate sectionGoals may be documented in an alternate sectionGoals may be documented in an alternate section FOR RECORDS PERTAINING TO PATIENTS [...] BE BASED ON THE PRIMARY CLINICAL RECORDS. [facility]. provides no warranty or guarantee of the accuracy or completeness of information in this document.
--- NOTE | 2024-07-19 11:04 | P.GSHP_ITS ---
History of Present Illness History of Present Illness Chief complaint: Missed AB Narrative: Patient presents for presurgical testing. The patient reports a positive home test followed by vaginal bleeding July 09. She states she is now spotting intermittently with no abdominal pain. She has had serial hCGs which have been decreasing. She denies any complaints today. Review of Systems ROS Narrative REVIEW OF SYSTEMS: Negative except as stated in HPI, ten or more systems reviewed. 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 ?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.613 - High grade squamous intraepithelial lesion on cytologic smear of cervix (HGSIL) (ICD-10) Surgical History (Updated 07/19/24 @ 09:47 by La Nena Tyler NP) H/O LEEP (12/12/22) ?Z98.890 - Other specified postprocedural states (ICD-10) Family History (Updated 12/03/22 @ 10:42 by La Nena Tyler NP) Other Family history of myocardial infarction Social History (Updated 12/03/22 @ 10:38 by La Nena Tyler NP) Within the past year, how often did you have a drink containing alcohol: 2-4 times a month Smoking status: Never smoker Non-prescribed substance use: denies use 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 Highest level of school completed/degree received: Master's degree Meds Home Medications and Allergies Home Medications ?Medication ?Instructions ?Recorded ?Confirmed ?Type vit no.95-ferrous 1 tab PO DAILY 12/03/22 07/19/24 History fumarate 28 mg-folic acid 800 mcg tablet () Allergies Allergy/AdvReac Type Severity Reaction Status Date / Time No Known Drug Allergies Allergy Verified 07/19/24 10:52 Exam Narrative Exam Narrative: Constitutional: Awake, alert, comfortable, well-appearing, nontoxic, interactive, vital signs as charted Head: Normocephalic, atraumatic Neck: Supple, normal appearance, normal range of motion, no meningeal signs, no lymphadenopathy Respiratory: No respiratory distress, breath sounds clear Cardiovascular: Regular rate and rhythm, strong and regular heart tones Abdomen: Nontender, normal bowel sounds, soft, no CVA tenderness Musculoskeletal: Normal gait, no swelling or edema Skin: No rashes or induration, no lesions, only visible skin inspected Neuro: No neurological deficits, normal sensation Psychiatric: Oriented ?3, normal affect Assessment and Plan Assessment and Plan (1) Missed : Plan D&C with suction scheduled with Dr. Tate July 20, 2024.
[2024-07-19 11:15] LABS: Basophils Percent Auto 0.8 % (0.2-2.0); Eosinophils Absolute Auto 0.1 10^3/uL (0.0-0.7); Eosinophils Percent Auto 1.3 % (0.9-7.0); Hematocrit 40.4 % (36.0-48.0); Hemoglobin 13.4 g/dL (12.0-16.0); Immature Granulocytes Abs Auto 0.03 10^3/uL (0.00-0.03); Immature Granulocytes Pct Auto 0.6 % (0.0-0.5); Lymphocytes Absolute Auto 1.9 10^3/uL (1.2-3.8); Lymphocytes Percent Auto 36.4 % (20.5-60.0); Mean Corpuscular HGB Conc 33.2 g/dL (29.9-35.2); Mean Corpuscular Hemoglobin 29.1 pg (26.7-34.0); Mean Corpuscular Volume 87.8 fL (81.0-99.0); Mean Platelet Volume 8.6 fL (9.5-13.5); Monocytes Absolute Auto 0.3 10^3/uL (0.3-0.8); Monocytes Percent Auto 6.5 % (1.7-12.0); Neutrophils Absolute Auto 2.8 10^3/uL (1.4-6.5); Neutrophils Percent Auto 54.4 % (43.0-75.0); Platelet Count 271 10^3/uL (150-450); Red Cell Distribution Width 12.3 % (11.0-15.0); White Blood Count 5.2 10^3/uL (4.0-11.0)
[2024-07-19 11:39] LABS: HCG Quantitative 559 mIU/mL
== END 2024-07-19 10:35 | disposition home or self-care (01) ==
LOC: PST 10:34
PROVIDERS: PCP Family Medicine; Visit Provider Obstetrics & Gynecology
DX: Z01.812 Encounter for preprocedural laboratory examination (principal); Z01.818 Encounter for other preprocedural examination; O02.1 Missed abortion
CPT/HCPCS: 36415; 84702; 85025; 86850; 86900; 86901; G0463

== ENCOUNTER 2024-07-20 09:04 | Day surgery (SDC) | payer OTHER, SELFPAY ==
[2024-07-19 11:02] VITALS: BP 113/74; PULSE 67; TEMP 36.4; O2SAT 95; BMI 24.2
[2024-07-20 09:10] VITALS: BP 110/69; PULSE 77; TEMP 36.1; O2SAT 100; BMI 23.8
[2024-07-20] MEDS: LACTATED RINGER'S SOLUTION 1,000 ML 50 ML IV (09:35)
[2024-07-20 10:37] VITALS: BP 99/60; PULSE 79; O2SAT 96
--- NOTE | 2024-07-20 10:53 | P.ON_ITS ---
Brief Operative Note Date of procedure: 07/20/24 Pre-op diagnosis general: incomplete Post-op diagnosis: same as pre-op Procedure: NAME OF PROCEDURE: [D&C suction ] PROCEDURE: The patient was taken back to the OR where she was given general anesthesia without difficulty. She was then placed in dorsal lithotomy position, prepped and draped in the normal sterile fashion. A weighted speculum was placed in the patient's vagina and the anterior lip of the cervix was identified and grasped with a single-tooth tenaculum. The patient was then gently dilated using Hegar dilators after we had sounded roughly to 12 cm. The suction curette was then tested. The suction curette was then placed in the patient's uterus and products of conception were removed using an 10-Slovak suction curette. ?Excellent hemostasis was noted. The patient tolerated the procedure well. Sponge, lap, and needle counts were correct x 2. All instruments were then removed from the patient's vagina. The patient was taken to the Recovery Room in stable cond ition. ?? Anesthesia: TOYINA Surgeon: Keshawn Tate Estimated blood loss (mL): 5 Pathology: other (poc) Condition: stable Disposition: PACU Urinary Catheter Management Urinary Catheter Management Straight: Cath placed during this visit: no
[2024-07-20 10:57] VITALS: BP 100/54; PULSE 64; O2SAT 96
[2024-07-20] MEDS: RHO(D) IMMUNE GLOBULIN 1,500 UNIT SYRINGE 1500 UNIT IV (11:04)
[2024-07-20 11:22] VITALS: BP 101/67; PULSE 61; O2SAT 100
--- NOTE | 2024-07-20 11:33 | PC.NURSE ---
Up to bathroom and voids clear yellow without difficulty; IV continues infusing with Pitocin.
[2024-07-20 11:54] VITALS: BP 96/58; PULSE 67; O2SAT 99
--- NOTE | 2024-07-20 11:56 | PC.NURSE ---
Peripad dry; IV Pitocin continues infursing
== END 2024-07-20 12:11 | disposition home or self-care (01) ==
PROVIDERS: PCP Family Medicine; Visit Provider Obstetrics & Gynecology
PROC: (CPT 1965; principal; 2024-07-20 10:00)
DX: O03.4 Incomplete spontaneous abortion without complication (principal)
CPT/HCPCS: 59812; 36415; 88305; J1100; J1885; J2250; J2590; J2704; J2791; J3010

== ENCOUNTER 2024-10-31 13:04 | Outpatient (REF) | payer OTHER, SELFPAY ==
[2024-11-02 08:12] LABS: Age Gdln ACOG Testing Note (.); HPV Aptima Negative (Negative); IGP, Aptima HPV, rfx 16/18,45 Note (.)
== END 2024-10-31 13:05 | disposition home or self-care (01) ==
LOC: LAB 13:04
PROVIDERS: PCP Family Medicine; Visit Provider Obstetrics & Gynecology
DX: Z01.419 Encounter for gynecological examination (general) (routine) without abnormal findings (principal)
CPT/HCPCS: 87624; 88175

== ENCOUNTER 2025-03-13 15:42 | Outpatient (OUT) | payer OTHER, SELFPAY ==
--- OUTSIDE RECORDS SUMMARY | 2025-03-03 09:00 | XMS_ITS | Encounter Summary ---
Author Organization [facility] Address [address] [place] [address] Care Team Providers Care Candles Pourer Name Role Phone Jessica Crump MD Primary Care Provider [phone] Encounter Details DateTypeDepartmentCare Team (Latest Contact Info)Ipimeynxlxw83/17/2025 9:00 AM EDTAncillary Procedure [facility] [address] [place] [address] [place] [address] Missed menses; Positive urine test ([facility]) Social History Tobacco UseTypesPacks/DayYears UsedDateSmoking Tobacco: NeverSmokeless Tobacco: NeverAlcohol UseStandard Drinks/WeekCommentsYes0 (1 standard drink = 0.6 oz pure alcohol)occasiona alcohol use ; caffeine: noneHumiliation, Afraid, Rape, and Kick questionnaireAnswerDate RecordedWithin the last year, have you been afraid of your partner or ex-partner?No06/29/2023Within the last year, have you been humiliated or emotionally abused in other ways by your partner or ex-partner?No 06/29/2023Within the last year, have you been kicked, hit, slapped, or otherwise physically hurt by your partner or ex-partner?No06/29/2023Within the last year, have you been raped or forced to have any kind of sexual activity by your part ner or ex-partner?No06/29/2023Social Connection and Isolation PanelAnswerDate RecordedIn a typical week, how many times do you talk on the phone with family, friends, or neighbors?More than three times a week06/29/2023How often do you get together with friends or relatives?Twice a week06/29/2023How often do you attend jain or worship services?More than 4 times per year06/29/2023o you belong to any clubs or organizations such as jain groups, unions, fraternal or athletic groups, or school groups?Yes06/29/2023How often do you attend meetings of the clubs or organizations you belong to?1 to 4 times per year06/29/2023re you , , , , never , or living with a partner?Undjhep1506/29/2023UDIT-CAnswerDate RecordedQ1: How often do you have a drink containing alcohol?2-4 times a month06/29/2023Q2: How many drinks containing alcohol do you have on a typical day when you are drinking?1 or 2 06/29/2023Q3: How often do you have six or more drinks on one occasion?Never 06/29/2023Overall Financial Resource Strain (CARDIA)AnswerDate RecordedHow hard is it for you to pay for the very basics like food, housing, medical care, and heating?Not very hard06/29/2023[facility] - Occupational Stress QuestionnaireAnswerDate RecordedDo you feel stress - tense, restless, nervous, or anxious, or unable to sleep at night because yourmind is troubled all the time - these days?Not at all06/29/2023Exercise Vital SignAnswer Date RecordedOn average, how many days per week do you engage in moderate to strenuous exercise (like a brisk walk)?6 days06/29/2023On average, how many minutes do you engage in exercise at this level?40 min06/29/2023Hunger Vital SignAnswerDate RecordedWithin the past 12 months, you worried that your food would run out before you got the money to buymore.Never true06/29/2023Within the past 12 months, the food you bought just didn't last and you didn't have money to get more.Never true06/29/2023RAPARE - TransportationAnswerDate RecordedIn the past 12 months, has lack of transportation kept you from medical appointments or from getting medications?No06/29/2023In the past 12 months, has lack of transportation kept you from meetings, work, or from getting things needed for daily living?No06/29/2023Housing Stability Vital SignAnswerDate RecordedIn the last 12 months, was there a time when you were not able to pay the mortgage or rent on time?No06/29/2023In the last 12 months, how many places have you lived?In the last 12 months, was there a time when you did not have a steady place to sleep or slept in ashelter (including now)?No 4Estimated Date of IycuajklKjqczlccUvl73/17/2026Based on UltrasoundSex and Gender InformationValueDate RecordedSex Assigned at BirthNot on fileLegal DbfJpbgvj97/15/2023 7:01 PM EDTGender IdentityNot on fileSexual OrientationNot on filedocumented as of this encounter Plan of Treatment DateTypeDepartmentCare Team (Latest Contact Info)Mncnlppacpp45/19/2025 1:20 PM ESTRoutine [facility] [address] [place] [address] [place] [address] Keshawn Tate, DO [address] [facility] [address] [place], [place] [id number] 11/08/2025 11:30 AM EDTOffice Visit [facility] [address] [place] [address] Mariana Miramontes PA [address] [place] [address] 11/14/2025 8:30 AM EDTOffice Visit [facility] [address] [place] [address] [place] [address] Keshawn Tate, DO [address] [facility] [place] [address] documented as of this encounter Procedures Procedure NamePriorityDate/TimeAssociated DiagnosisCommentsUS OB TRANSVAGINAL Nfbmvoi9403/03/2025 9:25 AM EDT Missed menses Positive urine test ([facility]) documented in this encounter Results * US OB transvaginal (03/03/2025 9:25 AM EDT)Anatomical RegionLateralityModality BodyUltrasoundSpecimen (Source)Anatomical Location / LateralityCollection Method / VolumeCollection TimeReceived Time03/03/2025 12:59 PM EDT Impressions 03/03/2025 1:10 PM EDT Findings consistent with a live intrauterine gestation, current sonographic age of 9 weeks and 5 days resulting in an estimated date of delivery of October 01, 2025. TRANSCRIBED BY: ? ELECTRONICALLY SIGNED BY: Bhavin Templeton MD Narrative 03/03/2025 1:10 PM EDT FINDINGS: A single intrauterine gestational sac is present. ??No subchorionic hemorrhage. ??A single pole is present. Normal heart rate at 174 beats per minute. ??Yolk sac also is seen. ?? Current sonographic age is 9 weeks and 5 days based on the crown-rump length measurement of 2.9 cm. ??Based on this age, current estimated date of delivery is October 01, 2025. ??No pelvic fluid or adnexal mass present. ??Cervix is closed, 4.7 cm length. Procedure Note Bhavin Templeton MD - 03/03/2025 FINDINGS: A single intrauterine gestational sac is present. No subchorionichemorrhage. A single pole is present. Normal heart rate at174 beats per minute. Yolk sac also is seen. Current sonographic age is9 weeks and 5 days based on the crown-rump length measurement of 2.9 cm.Based on this age, current estimated date of delivery is October 01, 2025. Nopelvic fluid or adnexal mass present. Cervix is closed, 4.7 cm length. IMPRESSION: Findings consistent with a live intrauterine gestation, currentsonographic age of 9 weeks and 5 days resulting in an estimated date ofdelivery of October 01, 2025. TRANSCRIBED BY: ELECTRONICALLY SIGNED BY: Bhavin Templeton MD Authorizing ProviderResult TypeResult StatusCorey Bebeto DOIMG OB US PROCEDURES Final Result documented in this encounter Visit Diagnoses Diagnosis Missed menses Positive urine test ([facility]) documented in this encounter Care Teams Team MemberRelationshipSpecialtyStart DateEnd Date Jessica Crump MD [address] [place] [id number] PCP - General11/17/22documented as of this encounter
--- OUTSIDE RECORDS SUMMARY | 2025-03-03 09:30 | XMS_ITS | Encounter Summary ---
Author Organization [facility] Address [address] [place] [address] Care Team Providers Care Meat Counter Clerk Name Role Phone Jessica Crump MD Primary Care Provider [phone] Reason for Visit * ReasonCommentsAmenorrhea Encounter Details DateTypeDepartmentCare Team (Latest Contact Info)Mqibkjerggm58/17/2025 9:30 AM EDTInitial [facility] [address] [place] [address] [place] [address] GA: 9w5d Social History Tobacco UseTypesPacks/DayYears UsedDateSmoking Tobacco: NeverSmokeless [...] relatives?Twice a week06/29/2023How often do you attend scientology or orthodoxy services?More than 4 times per year06/29/2023o you belong to any clubs or organizations such as scientology groups, unions, fraternal or athletic groups, or school groups?Yes06/29/2023How often do you attend meetings of the clubs or organizations you belong to?1 to 4 times per year06/29/2023re you , , , , never , or living with a partner?Hrgsinw1706/29/2023UDIT-CAnswerDate RecordedQ1: How often do you have a [...] food, housing, medical care, and heating?Not very hard06/29/2023[facility] [place] [facility] - Occupational Stress QuestionnaireAnswerDate [...] sleep or slept in ashelter (including now)?No 06/29/2023Estimated Date of OirbmhdnHhnsubirXzn19/17/2026ased on UltrasoundSex and Gender InformationValueDate RecordedSex Assigned at BirthNot on fileLegal LzjNllpmc14/15/2023 7:01 PM EDTGender IdentityNot on fileSexual OrientationNot on filedocumented as of this encounter Last Filed Vital Signs Vital SignReadingTime TakenCommentsBlood Jzcatwqj279/7203/03/2025 9:51 AM EDT Pulse--Temperature--Respiratory Rate--Oxygen Saturation--Inhaled Oxygen Concentration--Jeygdx96.6 kg (138 lb)03/03/2025 9:51 AM EDTHeight--Body Mass Index22.9608 8:43 AM EDTdocumented in this encounter Progress Notes * Meghan Edge MA - 03/03/2025 9:30 AM EDT Reason for Appointment: Patient ID: Julia Colorado is a 34 y.o. female who presents for Amenorrhea Patient presents today for a Nurse OB Intake appointment. Patient is 9w5d with a Estimated Date of Delivery: 10/01/25 OB History Para Term AB Living 3 1 1 1 1 SAB IAB Ectopic Multiple Live Births 1 1 # Outcome Date GA Lbr Crispin/2nd Weight Sex Type Anes PTL Lv 3 Current 2 SAB 06/2024 Complete 1 Term 05/06/22 7 lb 15 oz F Vag-Spont DANIELLA Current Medications: has a current medication list which includes the following prescription(s): ibuprofen and multiple vitamin. Medical History: Active Ambulatory Problems Diagnosis Date Noted H/O LEEP 03/03/2025 Resolved Ambulatory Problems Diagnosis Date Noted No Resolved Ambulatory Problems Past Medical History: Diagnosis Date History of abnormal cervical Pap smear LGSIL of cervix of undetermined significance Nonsmoker Family History Problem Relation Name Age of Onset No Known Problems Sister Other (history of blood clots) Maternal Grandmother Arthritis Maternal Grandmother Melanoma Neg Hx Social History Tobacco Use Smoking status: Never Smokeless tobacco: Never Vaping Use Vaping status: Never Used Substance Use Topics Alcohol use: Yes Comment: occasiona alcohol use ; caffeine: none Drug use: Never Past Surgical History: Procedure Laterality Date CERVICAL BIOPSY W/ LOOP ELECTRODE EXCISION 12/12/2022 D&C FIRST TRIMESTER / TX INCOMPLETE / MISSED / SEPTIC / INDUCED 07/21/2024 PAP SMEAR 08/05/2022 LGSIl No Known Allergies Vitals: Estimated body mass index is 22.96 kg/m?? as calculated from the following: Height as of 12/25/22: 5' 5 . Weight as of this encounter: 138 lb. BP: 118/72 Patient's last menstrual period was 12/28/2024. Assessment/Plan Diagnoses and all orders for this visit: Missed menses - US OB transvaginal; Future - Type and screen; Future - ABO/Rh; Future - CBC and differential - Hemoglobin A1c - RPR - Rubella antibody, IgG - Hepatitis B surface antigen - Hepatitis C antibody - HIV-1 and HIV-2 antibodies - Urine culture - POCT , urine manually resulted - POCT urinalysis dipstick manually resulted Positive urine test ([facility]) - US OB transvaginal; Future Amenorrhea 9 weeks gestation of ([facility]) First trimester ([facility]) H/O LEEP H/O: 1 miscarriage , unspecified gestational age ([facility]) - Type and screen; Future - ABO/Rh; Future - CBC and differential - Hemoglobin A1c - RPR - Rubella antibody, IgG - Hepatitis B surface antigen - Hepatitis C antibody - HIV-1 and HIV-2 antibodies - Rapid drug screen, urine; Future Encounter for supervision of normal first in first trimester ([facility]) - Rapid drug screen, urine; Future Nurse Note: Pt unsure of [place] billion to one. Pt was advised if she does desire to do [place] to have both labs and [place] drawn together. PVU. Pt does have a h/o a miscarriage in 06/2024 and is currentlytaking progesterone suppositories. Pt is aware to continue taking the progesterone until she reaches 12 weeks gestation. PVU. Follow Up: Patient is to have labs drawn at directed and return to office for initial OB appointment with provider. Patient may call office as needed with any concerns or questions. Nurse Visit Completed by: Meghan Edge MA documented in this encounter Plan of Treatment DateTypeDepartmentCare Team (Latest Contact Info)Lkeeleefvtb09/19/2025 1:20 PM ESTRoutine [facility] [address] [place] [address] [place] [phone] Keshawn Tate, [address] [place] [address] 11/08/2025 11:30 AM EDTOffice Visit [facility] [address] [place] [phone] Mariana Miramontes PA [address] [place] [phone] 11/14/2025 8:30 AM EDTOffice Visit [facility] [address] [place] [phone] Keshawn Tate, [address] [place] [address] NameTypePriorityAssociated DiagnosesOrder ScheduleType and screenLabRoutine Missed menses , unspecified gestational age ([facility]) Expected: 03/03/2025 (Approximate), Expires: 6ABO/RhLabRoutine Missed menses , unspecified gestational age ([facility]) Expected: 03/03/2025 (Approximate), Expires: 6CBC and differentialLab Routine Missed menses , unspecified gestational age ([facility]) Ordered: 03/03/2025Hemoglobin S0cFapYgwvltt Missed menses , unspecified gestational age ([facility]) Ordered: 03/03/2025RPRLabRoutine Missed menses , unspecified gestational age ([facility]) Ordered: 03/03/2025Rubella antibody, IgGLabRoutine Missed menses , unspecified gestational age ([facility]) Ordered: 03/03/2025Hepatitis B surface antigenLabRoutine Missed menses , unspecified gestational age ([facility]) Ordered: 03/03/2025Hepatitis C antibodyLabRoutine Missed menses , unspecified gestational age ([facility]) Ordered: 03/03/2025HIV-1 and HIV-2 antibodiesLabRoutine Missed menses , unspecified gestational age ([facility]) Ordered: 03/03/2025Urine cultureMicrobiologyRoutine Missed menses Ordered: 03/03/2025Rapid drug screen, urineLabRoutine , unspecified gestational age ([facility]) Encounter for supervision of normal first in first trimester ([facility]) Expected: 03/03/2025 (Approximate), Expires: 03/03/2026documented as of this encounter Procedures Procedure NamePriorityDate/TimeAssociated DiagnosisCommentsPOCT , URINE Ybjguyg5503/03/2025 9:36 AM EDT Missed menses POCT URINALYSIS DNWDQHACGkencun03/17/2025 9:35 AM EDT Missed menses documented in this encounter Results * (ABNORMAL) POCT , urine manually resulted (03/03/2025 9:36 AM EDT) ComponentValueRef RangeTest MethodAnalysis TimePerformed AtPathologist SignaturePreg Test, UrPositiveNegativeSpecimen (Source)Anatomical Location / LateralityCollection Method / VolumeCollection TimeReceived TimeUrine 03/03/2025 9:36 AM EDT Narrative Authorizing ProviderResult TypeResult StatusCorey Bebeto DOPOINT OF CARE TEST ENTER/EDIT ORDERABLESFinal Result * POCT urinalysis dipstick manually resulted (03/03/2025 9:35 AM EDT)Component ValueRef RangeTest MethodAnalysis TimePerformed AtPathologist SignatureColor, UAYellowClarity, UAClearGlucose, UANegativeNegative - 2000(110) ++++ mg/dL Bilirubin, UANegativeNegative - 4(70) +++ mg/dLKetones, UANegativeNegative - 160(16) ++++ mg/dLSpec Grav, UA1.0251 - 1.03Blood, UANegativeNegative - 50 Edgardo/mcLpH, UA6.05 - 9Protein, UANegativeNegative - 2000(20) ++++ mg/dL Urobilinogen, UA1.00.2 - 12 mg/dLLeukocytes, UA1+Negative - 500+++ Vincenzo/mcL Nitrite, UANegativeNegative - PositiveSpecimen (Source)Anatomical Location / LateralityCollection Method / VolumeCollection TimeReceived TimeUrine 03/03/2025 9:35 AM EDT Narrative Authorizing ProviderResult TypeResult StatusCorey Bebeto DOPOINT OF CARE TEST ENTER/EDIT ORDERABLESFinal Result * US OB transvaginal (03/03/2025 9:25 AM [...] Templeton MD Authorizing ProviderResult TypeResult StatusCorey Bebeto DOI OB US PROCEDURES Final Result documented in this encounter Visit Diagnoses Diagnosis Missed menses Positive urine test ([facility]) Missed menses Positive urine test ([facility]) Amenorrhea Absence of menstruation 9 weeks gestation of ([facility]) First trimester ([facility]) state, incidental H/O LEEP H/O: 1 miscarriage Personal history of other genital system and obstetric disorders , unspecified gestational age ([facility]) Encounter for supervision of normal first in first trimester ([facility]) documented in this encounter Care Teams Team MemberRelationshipSpecialtyStart DateEnd Date Jessica Crump MD [address] [place] [address] PCP - General11/17/22documented as of this encounter
--- OUTSIDE RECORDS SUMMARY | 2025-03-13 15:45 | XMS_ITS | Clinical Summary ---
Author Organization [facility] Address [address] [facility] [place] [address] Care Team Providers Care Bolting Machine Operator Name Role Phone Jessica Crump MD Primary Care Provider [phone] Allergies No known active allergies Medications MedicationSigDispense QuantityRefillsLast FilledStart DateEnd DateStatus MULTIPLE VITAMIN PO Take by mouthActive ibuprofen 800 MG tablet TAKE 1 TABLET BY MOUTH EVERY 8 HOURS FOR 14 DAYS NEEDED FOR PAIN07/20/2024 Active Progesterone 200 MG suppository Indications:History of miscarriageInsert 200 mg into the vagina at bedtime Insert suppository vaginally every night at bedtime until 12 weeks gestation 30 suppository 309/51Expired Active Problems ProblemNoted DateDiagnosed DateH/O LEEP1Estimated Date of BearkujgNcaqysvnUkb95/17/2026ased on Ultrasound Encounters DateTypeDepartmentCare NahpQrvfvfvhfhx15/17/2025 9:30 [place] [address] [place]: 9w5d1 9:00 AM EDTAncillary Procedure [facility] [address] [place] [address] Missed menses; Positive urine test ([facility])02/26/20252716Ocbyvk53/08/2025Telephone [facility] [address] [place] [address] Marilee Baires LPN from Last 3 Months Family History Medical HistoryRelationNameCommentsArthritisMaternal Grandmotherhistory of blood clotsMaternal GrandmotherNo Known ProblemsSisterMelanomaNeg HxRelationNameStatus CommentsMaternal GrandfatherAliveMaternal GrandmotherAliveMotherAliveSisterAlive Social History Tobacco UseTypesPacks/DayYears UsedDateSmoking Tobacco: NeverSmokeless Tobacco: Never Tobacco Cessation:Counseling Given: Not Answered Alcohol UseStandard Drinks/WeekCommentsYes0 (1 standard drink = 0.6 [...] relatives?Twice a week06/29/2023How often do you attend rastafari or mandaen services?More than 4 times per year06/29/2023o you belong to any clubs or organizations such as rastafari groups, unions, fraternal or athletic groups, or school groups?Yes06/29/2023How often do you attend meetings of the clubs or organizations you belong to?1 to 4 times per year06/29/2023re you , , , , never , or living with a partner?Dwrcach9006/29/2023UDIT-CAnswerDate RecordedQ1: How often do you have a [...] food, housing, medical care, and heating?Not very hard06/29/2023[facility] [place] of [facility] - Occupational Stress QuestionnaireAnswerDate [...] steady place to sleep or slept in divernonelter (including now)?No 06/29/2023Estimated Date of YvngdvrmKujokyosXkb39/17/2026Based on UltrasoundSex and Gender InformationValueDate RecordedSex Assigned at BirthNot on fileLegal UlpRdyvgd82/15/2023 7:01 PM EDTGender IdentityNot on fileSexual OrientationNot on file Last Filed Vital Signs Vital SignReadingTime TakenCommentsBlood Nkkdogvn085/7203/03/2025 9:51 AM EDT Pulse--Temperature--Respiratory Rate--Oxygen Saturation--Inhaled Oxygen Concentration--Wjgclp09.6 kg (138 lb)03/03/2025 9:51 AM KXWYvztuh832.1 cm (5' 5 )12/25/2022 8:43 AM EDTBody Mass Index22.9612/25/2022 8:43 AM EDT Plan of Treatment DateTypeDepartmentCare Team (Latest Contact Info)Eoiqlongpdz58/19/2025 1:20 PM ESTRoutine [facility] [address] [place] [address] [place] [address] Keshawn Tate, [address] [place] [address] [address] [place], [place] [id number] 11/08/2025 11:30 AM EDTOffice Visit [facility] [address] [place] [address] Mariana Miramontes [place] [address] [place] [address] 11/14/2025 8:30 AM EDTOffice Visit [facility] [address] [place] [address] [place] [address] Keshawn Tate DO [address] [place] [address] [address] [place], [place] [id number] Health MaintenanceDue DateLast DoneCommentsInfluenza Vaccine (#1)01/16/2025 04/06/2023, 03/16/2022, 02/13/2021, Additional history existsHPV/Cotest 10/20/2027Cervical Cancer Mdnnwnsvy35/16/2028Pap Smear806/, 10/19/2022, 08/05/2022 Procedures Procedure NamePriorityDate/TimeAssociated DiagnosisCommentsPOCT , URINE Ruznkrx7703/03/2025 9:36 AM EDT Missed menses POCT URINALYSIS BINZHLLZXrpkgek89/17/2025 9:35 AM EDT Missed menses US OB JVTYDJSRMJZJInhxyah01/17/2025 9:25 AM EDT Missed menses Positive urine test ([facility]) PAP JZPIYRwnoovm89/16/2025 12:00 AM EDTfrom Last 3 Months or Most Recently Relevant to Health Maintenance Results * (ABNORMAL) POCT , urine manually [...] TimePerformed AtPathologist SignatureColor, UAYellowClarity, UAClearGlucose, UANegativeNegative - 1999(110) ++++ mg/dL Bilirubin, UANegativeNegative - 4(70) +++ [...] Bebeto DOIMG OB US PROCEDURES Final Result * Pap Smear (10/31/2024 12:00 AM EDT)Specimen (Source)Anatomical Location / LateralityCollection Method / VolumeCollection TimeReceived TimeSwabCervical swab / Unknown Narrative Authorizing ProviderResult TypeResult StatusFazio Nurse [facility] ObLAB CYTOLOGY ORDERABLESFinal ResultPerforming OrganizationAddressCity/State/ZIP CodePhone Number EXTERNAL LAB from Last 3 Months or Most Recently Relevant to Health Maintenance Insurance Care Teams Team MemberRelationshipSpecialtyStart DateEnd Date Jessica Crump MD [address] [place] [phone] [facility] - General11/17/22
[2025-03-13 16:03] LABS: Hematocrit 37.9 % (36.0-48.0); Hemoglobin 13.2 g/dL (12.0-16.0); Mean Corpuscular HGB Conc 34.8 g/dL (29.9-35.2); Mean Corpuscular Hemoglobin 29.9 pg (26.7-34.0); Mean Corpuscular Volume 85.9 fL (81.0-99.0); Platelet Count 248 10^3/uL (150-450); Red Blood Count 4.41 10^6/uL (4.20-5.40); White Blood Count 5.7 10^3/uL (4.0-11.0)
[2025-03-13 16:04] LABS: Immature Granulocytes Abs Auto 0.03 10^3/uL (0.00-0.03); Immature Granulocytes Pct Auto 0.5 % (0.0-0.5); Lymphocytes Absolute Auto 2.0 10^3/uL (1.2-3.8)
[2025-03-13 16:15] LABS: Cannabinoid Screen Urine NEGATIVE (NEGATIVE); Methamphetamines Screen Urine NEGATIVE (NEGATIVE); Tricyclic Antidepressant Urine NEGATIVE (NEGATIVE)
[2025-03-14 08:09] LABS: Rubella Antibodies, IgG 4.56 index (Immune >0.99)
[2025-03-14 12:09] LABS: Rapid Plasma Reagin, Quant Non Reactive titer (NonRea<1:1)
== END 2025-03-13 15:43 | disposition home or self-care (01) ==
PROVIDERS: PCP Family Medicine; Visit Provider Obstetrics & Gynecology
DX: Z34.01 Encounter for supervision of normal first pregnancy, first trimester (principal); N92.6 Irregular menstruation, unspecified
CPT/HCPCS: 36415; 80307; 83036; 85025; 86592; 86762; 86803; 86850; 86900; 86901; 87086; 87340; 87389

== ENCOUNTER 2025-04-25 08:46 | Outpatient (OUT) | payer OTHER, SELFPAY ==
--- OUTSIDE RECORDS SUMMARY | 2025-04-24 12:00 | XMS_ITS | CCD ---
Author Organization [facility] Care Team Providers Care Sales Exhibitor Name Role Phone BEBETO ., DR CESAR [...] ., DR CESAR Consulting Unavailable ROBERTS, DR AVILA Jaquez Primary Care Unavailable BEBETO ., DR CESAR Attending Unavailable BEBETO ., DR CESAR Admitting Unavailable BEBETO ., DR CESAR Consulting Unavailable ROBERTS, DR AVILA Jaquez Primary Care Unavailable BEBETO ., DR CESAR Attending Unavailable BEBETO ., DR CESAR Admitting Unavailable ROBERTS, DR AVILA Jaquez Primary Care Unavailable BEBETO ., DR CESAR Attending Unavailable BEBETO ., DR CESAR Admitting Unavailable KARASIK ., DR GOMES Consulting Unavailabl e ROBERST, DR AVILA Jaquez Primary Care Unavailable BEBETO ., DR CESAR Attending Unavailable BEBETO ., DR CESAR Admitting Unavailable ROBERTS, DR AVILA Jaquez Primary Care Unavailable BEBETO ., DR CESAR Attending Unavailable BEBETO ., DR CESAR Admitting Unavailable BEBETO ., DR CESAR Consulting Unavailable ROBERTS, DR AVILA Jaquez Primary Care Unavailable BEBETO ., DR CESAR Attending Unavailable BEBETO ., DR CESAR Admitting Unavailable TRUDY JULES Consulting Unavailable DEWAYNE AYALA Consulting Unavailable BEBETO ., DR CESAR Procedure Practitioner Unavail able ELISE ORTIZ Consulting Unavailable LESTER PRAIRIE, DR OLIVIA De La Paz Consulting Unavailable REQUEST, DR FREDIS LISTED Primary Care Unavaila ble BEBETO ., DR CESAR Attending Unavailable BEBETO ., DR CESAR Admitting Unavailable BEBETO ., DR CESAR Consulting Unavailable BEBETO ., DR CESAR Consulting Unavailable ROBERTS, DR AVILA Jaquez Primary Care Unavailable BEBETO ., DR CESAR Attending Unavailable BEBETO ., DR CESAR Admitting Unavailable BEBETO ., DR CESAR Consulting Unavailable BEBETO ., DR CESAR Attending Unavailable BEBETO ., DR CESAR Admitting Unavailable ZIEBER, DR FCO Lynch Consulting Unavailable BEBETO ., DR CESAR Consulting Unavailable BEBETO ., DR CESAR Attending Unavailable BEBETO ., DR CESAR Admitting Unavailable Avila Roberts MD Primary Care Provider Avila Roberts MD Attending Provider Avila Roberts MD Primary Care Provider Keshawn Tate Admitting Unavailable Avila Roberts Primary Care Unavailable Keshawn Tate Attending Unavailable Avila Roberts Attending Unavailable Avila Roberts Primary Care Unavailable Avila Roberts Admitting Unavailable Avila Roberts MD Primary Care Provider Avila Roberts MD Attending Provider Keshawn Tate DO Attending Provider Avila Roberts MD Primary Care Provider Avila Roberts MD Primary Care Provider [phone] Avila Roberts MD Primary Care Provider KESHAWN TATE Attending Unavailable KESHAWN TATE Attending Unavailable NELDA MIRAMONTES Attending Unavailable Medications Current Medications MedicationDrug Class(es)DatesSig (Normalized)Sig (Original)azithromycin 250 mg oral tablet (1 source)Macrolide AntimicrobialStart: 64-15-7111Qjvdbrdivcul 250 mg tablet Active 0 PO .COMPLEX August 04, 2024 12:00am For 250 mg dose pack: take 500 mg today (day 1), then 250 mg for 4 days (days 2-5) POibuprofen 800 mg oral tablet (8 sources)Nonsteroidal Anti-inflammatory DrugStart: 63-44-3569ttlm 1 tablet by mouth every eight hours as needed for painibuprofen 800 MG tablet TAKE 1 TABLET BY MOUTH EVERY 8 HOURS FOR 14 DAYS NEEDED FOR PAIN 07/20/2024 ActiveMULTIPLE VITAMIN PO (16 sources)MULTIPLE VITAMIN PO Take by mouth ActiveNo Name (No Known Home Meds) (1 source)Start: 39-56-7940Xo Name (No Known Home Meds) Active April 19, 2024 12:00amPnv #08-Itbn-Grwvp Acid-Omega3 30 mg iron-10 mg iron-1 mg capsule (1 source)Start: 38-07-9763Zzs #98-Mxlw-Amwer Acid-Omega3 30 mg iron-10 mg iron- 1 mg capsule Active CAP PO August 04, 2024 12:00am Completed/Discontinued Medications MedicationDrug Class(es)DatesSig (Normalized)Sig (Original)amoxicillin 500 mg oral capsule (5 sources)Penicillin-class AntibacterialStart: 10-05-2023 End: 42-82-4187jkjm 1 capsule by mouth twice dailyAmoxicillin 500 mg capsule Discontinued 500 MG PO Twice daily 06 03October 05, 2023 12:00am October 23, 2023 9:48amamoxicillin 875 mg / clavulanate 125 mg oral tablet (3 sources)Penicillin-class AntibacterialStart: 06-09-2024 End: 05-85-4915okio 1 tablet by mouth twice dailyAmoxicillin-Pot Clavulanate 875-125 mg tablet Discontinued 1 TAB PO Twice daily June 09, 2024 1:00am August 04, 2024 3:23pm Problems Active Problems Problem ClassificationProblemDateDocumented DateEpisodic/ChronicImmunizations and screening for infectious disease (6 sources)Encounter for screening for human papillomavirus (HPV); Translations: [Encounter for screening for infections with a predominantly sexual mode of transmission]Onset: 10-97-8642MbhzmkzjIvehianha disorders (6 sources)Irregular menstruation, unspecified; Translations: [Missed period] Onset: 11-24-0844KmfqdbiPggxevaepclpu mental health disorders (6 sources)Anxiety about body function or health; Translations: [Other symptoms and signs involving emotional state]46-41-0912PpkcenikBshaxmerzwli breast conditions (7 sources)Breast lump; Translations: [Unspecified lump in the right breast, unspecified quadrant]Onset: 201273-58-2684DyvmjgtnEJ-hyresmg trauma to perineum and vulva (1 source)Second degree perineal laceration during delivery; Translations: [SECOND DEG PERINEAL LAC DUR DELIV]Onset: 01-61-1908EdqxmimpXtknm aftercare (2 sources)Surgical follow-up; Translations: [Encounter for follow-up examination after completed treatment for conditions other than malignant neoplasm]99-27-8940KlmxldsdBcsfm and unspecified benign neoplasm (2 sources)Melanocytic nevus of trunk; Translations: [Melanocytic nevi of trunk] 85-92-8486CkuwjfurIrujs and delivery including normal (12 sources)Encounter for routine follow-up; Translations: [Encounter for full-term uncomplicated delivery]Onset: 66-74-7317XwqoevwwYzfub screening for suspected conditions (not mental disorders or infectious disease) (20 sources)Encounter for screening for malignant neoplasm of cervix; Translations: [Encounter for screening for Streptococcus B]Onset: 84-67-1760HffyimobUbwjz skin disorders (5 sources)Mass of lower limb; Translations: [Localized swelling, mass and lump, left lower limb]18-77-3340WozbmklxOuwti skin disorders (1 source)Localized swelling, mass and lump, left lower limb; Translations: [Localized superficial swelling, mass, or lump]28-39-8234FuzjjrfwFdqwo skin disorders (2 sources)Lentigo simplex; Translations: [Other melanin hyperpigmentation] 23-08-9070ZtgpnmbbCriik upper respiratory infections (11 sources)Streptococcal sore throat; Translations: [Streptococcal pharyngitis] 20-36-1297AwsqnrpzZppqqban codes; unclassified (1 source)39 weeks gestation of ; Translations: [39 WEEKS GESTATION OF ]Onset: 78-22-1176QmkqpdqkQnmwatbm codes; unclassified (2 sources)Past history of procedure; Translations: [Other specified postprocedural states]02-11-2348UevvrhwyZrjthpdq codes; unclassified (1 source)Gestation period, 9 weeks; Translations: [9 weeks gestation of ]91-33-7183EoonyiweVjmjpivf codes; unclassified (3 sources)History of loop electrosurgical excision procedure; Translations: [Other specified postprocedural states]Onset: 864871-03-9733Orosxexg Residual codes; unclassified (1 source)H/O: miscarriage; Translations: [Personal history of other complications of , childbirth and the puerperium]30-42-4792Xqlerwkl Spontaneous (2 sources)Miscarriage; Translations: [Complete or unspecified spontaneous without complication]23-57-7587Gkrvlrfc Past or Other Problems Problem ClassificationProblemDateDocumented DateEpisodic/ChronicOther complications of (4 sources)Other specified related conditions, unspecified trimester; Translations: [OTH SPEC PREG RELATED COND UNS TRI]Onset: 74-75-6369RvolzwmbMbqtb female genital disorders (1 source)Other specified noninflammatory disorders of vagina; Translations: [OTH SPEC NONINFLAMMATORY D/O VAGINA]Onset: 09-62-9687XmbyqhpbHjepfykw codes; unclassified (1 source)28 weeks gestation of ; Translations: [28 WEEKS GESTATION OF ]Onset: 91-83-7693DzdrgtlnHgcckdia codes; unclassified (1 source)Unspecified blood type, Rh negative; Translations: [UNSPECIFIED BLOOD TYPE RH NEGATIVE]Onset: 83-83-3575LxqykkklPpcckxoj codes; unclassified (1 source)20 weeks gestation of ; Translations: [20 WEEKS GESTATION OF ]Onset: 30-71-4135Sykupzkk Results Test NameValueInterpretationReference RangeFacilityALL CBC WITH AUTO DIFFon 92-15-3936RGWQQGRMG ABSOLUTE AUTO0.0NOMS HealthcareBasophils/100 WBC (Bld)0.7 % 0.2 - 2.0 %NOMS HealthcareEosinophils/100 WBC (Bld)1.6 %0.9 - 7.0 %NOMS HealthcareErythrocyte distribution width (RBC) [Ratio]12.5 %11.0 - 15.0 %NOMS HealthcareHematocrit (Bld) [Volume fraction]37.9 %36.0 - 48.0 %[facility] Hemoglobin (Bld) [Mass/Vol]13.2 g/dL12.0 - 16.0 g/dLNOChristian HospitalIMMATURE GRANULOCYTES ABS AUTO0.03NOChristian HospitalImmature granulocytes/100 WBC (Bld)0.5 % 0.0 - 0.5 %[facility] InstituteInterpretation and review of laboratory results AbnormalNOChristian HospitalLYMPHOCYTES ABSOLUTE AUTO2.0NOMS [facility] Lymphocytes/100 WBC (Bld)34.8 %20.5 - 60.0 %[facility] CenterH (RBC) [Entitic mass]29.9 pg26.7 - 34.0 pgNOCedar County Memorial HospitalHC (RBC) [Mass/Vol]34.8 g/dL29.9 - 35.2 g/dLCapital Region Medical CenterV (RBC) [Entitic vol]85.9 fL81.0 - 99.0 fLFreeman Heart InstituteMONOCYTES ABSOLUTE AUTO0.3NOChristian HospitalMonocytes/100 WBC (Bld)5.3 % 1.7 - 12.0 %[facility] InstituteNEUTROPHILS ABSOLUTE AUTO3.2NOMS [facility] Neutrophils/100 WBC (Bld)57.1 %43.0 - 75.0 %[facility] InstitutePlatelet mean volume (Bld) [Entitic vol]8.7 fLLow9.5 - 13.5 fLFreeman Heart InstituteTBH EO #0.1NOMS HealthcareTBH VQP168QICCChristian HospitalTB RBC4.41NOMS [facility] HospitalTB WBC5.7NOChristian HospitalCLINISYNCNSoutheast Missouri Community Treatment CenterHCG ( test) Ql (U)on 03-03-2025 Interpretation and review of laboratory resultsAbnormalNOChristian HospitalPreg Test, UrPositiveNegativeNOSamaritan Hospital HealthcareUS OB TRANSVAGINALon 03-03-2025 US OB TRANSVAGINALFINDINGS: A single intrauterine gestational sac is present. No subchorionic hemorrhage. A single pole is present. Normal heart rate at 174 beats per minute. Yolk sac also is seen. Current sonographic age is 9 weeks and 5 days based on the crown-rump length measurement of 2.9 cm. Based on this age, current estimated date of delivery is October 01, 2025. No pelvic fluid or adnexal mass present. Cervix is closed, 4.7 cm length. IMPRESSION: Findings consistent with a live intrauterine gestation, current sonographic age of 9 weeks and 5 days resulting in an estimated date of delivery of October 01, 2025. TRANSCRIBED BY: ELECTRONICALLY SIGNED BY: Johanny Sharp AvailableComment on above:Order Comment: US OB TRANSVAGINAL No LMP recorded.Urinalysis macro (dipstick) panel (U)on 99-61-0687Tuugqtidm, UA NegativeNegative - 4(70) +++ mg/dLNOMS HealthcareBlood, UANegativeNegative - 50 Edgardo/mcLNOMS HealthcareClarity, UAClearNOMS HealthcareColor, UAYellowNOMS HealthcareGlucose, UANegativeNegative - 2000(110) ++++ mg/dLNOMS Healthcare Interpretation and review of laboratory resultsNormalNOMS HealthcareKetones, UA NegativeNegative - 160(16) ++++ mg/dLNOMS HealthcareLeukocytes, UA1+Negative - 500+++ Vincenzo/mcLNOMS HealthcareNitrite, UANegativeNegative - PositiveNOMS HealthcarepH, UA6.05 - 9NOMS HealthcareProtein, UANegativeNegative - 2000(20) ++++ mg/dLNOMS HealthcareSpec Grav, UA1.0251 - 1.03NOMS HealthcareUrobilinogen, UA1.00.2 - 12 mg/dLNOMS HealthcareNOMS HealthcareIGP,APTIMA HPV,AGE GDLNon 36-09-4040MZP GDLN ACOG TESTINGNote.NOMS HealthcareComment on above:TESTS RESULT FLAG UNITS REF RANGE LAB Clinician Provided Cytology Information Source.............Cervix;Endocervix No. of containers..01 ThinPrep Vial Age Algo ACOG Betsy... 32- FLAG LEGEND: L-Low Normal,H-High Normal,LL-Alert Low,HH-Alert High <-Panic Low,>-Panic High,A-Abnormal,AA-Critical Abnormal Performed at: 01 =[address] [address] Donita Lay MD, HPV APTIMANegativeNegativeNOMS HealthcareComment on above:This nucleic acid amplification test detects fourteen high- risk HPV types (16,18,31,33,35,39,45,51,52,56,58,59,66,68) without differentiation. Performed at: =[address] [id number] Home Improvement Advisor: Donita Lay MD, Phone: [phone] Performed at: [address] [id number] Home Improvement Advisor: Donita Lay MD, Phone: [phone] IGP, APTIMA HPV, RFX 16/18,45Note.NOMS HealthcareComment on above:TESTS RESULT FLAG UNITS REF RANGE LAB DIAGNOSIS: 02 NEGATIVE FOR INTRAEPITHELIAL LESION OR MALIGNANCY. Specimen adequacy: 02 Satisfactory for evaluation. Endocervical and/or squamous metaplastic cells (endocervical component) are present. Performed by: Brandi Asencio, Special Track[employer] Black[employer] ([facility]) . 02 Note: Note 02 The Pap smear is a screening test designed to aid in the detection of premalignant and malignant conditions of the uterine cervix. It is not a diagnostic procedure and should not be used as the sole means of detecting cervical cancer. Both false-positive and false-negative reports do occur. Test Methodology: Note 02 This liquid based ThinPrep(R) pap test was screened with the use of an image guided system. HPV Genotype Reflex Note 02 Criteria not met, HPV Genotype not performed. FLAG LEGEND: L-Low Normal,H-High Normal,LL-Alert Low,HH-Alert High <-Panic Low,>-Panic High,A-Abnormal,AA-Critical Abnormal Performed at: [address] [facility] [address] [address] Donita Lay MD, BRUSH-SPATULA CERVIX ENDOCERVIX CLINISYNCNOTX HealthcareNo Panel Informationon 60-70-8484Jhcwa Chorionic Gonadotropin, Quant<1 mIU/mLCincinnati Va Medical CenterComment on above:5- 50 0.2-1 NRAT40-341 1-2 PJNAQ648-3,000 2-3 ZDULQ434-64,000 3-4 WEEKS1,000-50,000 4-5 WEEKS10,000-100,000 5-6 WEEKS15,000-200,000 6-8 WEEKS10,000-100,000 2-3 MONTHSPathology study report documentOrdered By: Huber Caicedo on 07-21-2024 Pathology studyCincinnati Va Medical Center Other Lon 07-20-2024L Specimen: [id number] Received: 07/20/24 Status: EZEQUIEL Conteh Num: [id number] Spec Type: Surgical Subm Dr: Keshawn Tate Tissues: A Products of Conception - Spontaneous or Missed (POC) Procedures: HE/3, Gross/Micro L4 Age/ Patient Sex Location Account Attending Physician Julia Colorado 33/F [facility]ELL [id number] Keshawn Tate SPEC NUM: [id number] RECD: 07/20/24 STATUS: EZEQUIEL CONTEH NUM: [id number] JAYLAN: 07/20/24 [facility] DR: Keshawn Tate ENTERED: 07/20/[address]: Magdiel Nguyen SPEC TYPE: Surgical DEPT: GERALDO SUTHERLAND ENTERED BY: [id number] RECV BY: [id number] ORDERED: HE/3, Gross/Micro L4 ORDERED: HE/3, Gross/Micro L4 Pathological Diagnosis Uterine contents, suction D C: -At least small portion of markedly degenerated chorionic villi, consistent with degenerated products of conception and missed -No obvious nucleated RBC noticeable -No atypical trophoblastic proliferation, and also no other features of molar degeneration identified Clinical Information Missed Gross Description Part A is received in formalin labeled with the patients name, date of , and products of conception is a suction bag with whipple-pink, glistening tissue fragments, admixed with hemorrhagic material, 2.2 x 2 x 0.8 cm in aggregate. Within the hemorrhagic material are feathery tissue fragments, possibly consistent with chorionic villi. No tissue is identified. The entirety of the clot with possible chorionic villi is submitted in A1 with the remainder the specimen entirely submitted in A2?A3. (3, ns, [id number])CHAU Specimen: [id number] Received: 07/20/24 Status: EZEQUIEL Maribeth Num: [id number] Spec Type: Surgical Subm Dr: Keshawn Tate Tissues: A Products of Conception - Spontaneous or Missed (POC) Procedures: ANEL/Nestor, Gross/Micro L4 Patient: Julia Colorado [id number] (Continued) Specimen: [id number] Received: 07/20/24 (Continued) Signed (signature on file) Huber Caicedo MD 07/21/24 1649 Specimen: [id number] Received: 07/20/24 Status: EZEQUIEL Conteh Num: [id number] Spec Type: Surgical Subm Dr: Keshawn Tate Tissues: A Products of Conception - Spontaneous or Missed (POC) Procedures: ANEL/Nestor, Gross/Micro L4 Patient: Julia Colorado [id number] (Continued) Specimen: [id number] Received: 07/20/24 (Continued) Microscopic Description Microscopic examinations are performed supporting the above interpretation CPT Codes 22877 Specimen: [id number] Received: 07/20/24 Status: EZEQUIEL Conteh Num: [id number] Spec Type: Surgical Subm Dr: Keshawn Tate Tissues: A Products of Conception - Spontaneous or Missed (POC) Procedures: Wei KHAN/Jessee L4 Patient: Julia Colorado [id number] (Continued) Signed (signature on file) Huber Caicedo MD 07/21/[address] [place] [address] Physician GroupALL CBC WITH AUTO DIFFon 07-19-2024 BASOPHILS ABSOLUTE YGHM7DAGE HealthcareBasophils/100 WBC (Bld)0.8 %0.2 - 2.0 % [facility] InstituteEosinophils/100 WBC (Bld)1.3 %0.9 - 7.0 %[facility] Erythrocyte distribution width (RBC) [Ratio]12.3 %11.0 - 15.0 %[facility] Hematocrit (Bld) [Volume fraction]40.4 %36.0 - 48.0 %[facility] InstituteHemoglobin (Bld) [Mass/Vol]13.4 g/dL12.0 - 16.0 g/dLFreeman Heart InstituteIMMATURE GRANULOCYTES ABS AUTO0.03NOChristian HospitalImmature granulocytes/100 WBC (Bld)0.6 %High0.0 - 0.5 %[facility] InstituteInterpretation and review of laboratory resultsAbnormalFreeman Heart InstituteLYMPHOCYTES ABSOLUTE AUTO1.9NOMS [facility] HospitalLymphocytes/100 WBC (Bld) 36.4 %20.5 - 60.0 %[facility] CenterH (RBC) [Entitic mass]29.1 pg26.7 - 34.0 pg [facility] CenterHC (RBC) [Mass/Vol]33.2 g/dL29.9 - 35.2 g/dLCapital Region Medical CenterV (RBC) [Entitic vol]87.8 fL81.0 - 99.0 fLFreeman Heart InstituteMONOCYTES ABSOLUTE AUTO 0.3NOMS [facility] HospitalMonocytes/100 WBC (Bld)6.5 %1.7 - 12.0 %[facility] NEUTROPHILS ABSOLUTE AUTO2.8NOMS [facility] HospitalNeutrophils/100 WBC (Bld)54.4 %43.0 - 75.0 %[facility] InstitutePlatelet mean volume (Bld) [Entitic vol]8.6 fLLow9.5 - 13.5 fLFreeman Heart InstituteTB EO #0.1NOMS [facility] HospitalTB [id number] [place] RBC4.6 [facility] WBC5.2NOMS HealthcareCLINISYNCNBEAVER COUNTY MEM[facility] HealthcareBasophils Auto (Bld) [#/Vol]on 70-05-3364Baffvkhcd (Bld) [#/Vol]Automated basophil count0.0-0.1 [facility] CenterBasophils/100 WBC Auto (Bld)on 07-19-2024 Basophils/100 WBC (Bld)Automated basophil %0.2-2.0[facility] CenterEosinophils/100 WBC Auto (Bld)on 89-36-5874Mnsgpfrupup/100 WBC (Bld) Automated eosinophil %0.9-7.0[facility] CenterErythrocyte distribution width Auto (RBC) [Ratio]on 93-86-5655Pchrejmvqdi distribution width (RBC) [Ratio]Erythrocyte distribution width [Ratio] by Automated count11.0-15.0 [facility] CenterHematocrit Auto (Bld) [Volume fraction]on 03-65-8552Zugitvmkcm (Bld) [Volume fraction]Hematocrit [Volume Fraction] of Blood by Automated count36.0-48.0[facility] CenterHemoglobin [Mass/volume] in Bloodon 42-02-2542Ilxvepjpcz (Bld) [Mass/Vol]Hemoglobin [Mass/volume] in Blood12.0-16.0[facility] CenterLaboratory - Hematology and Cell countson 27-51-5564Mxuidmvb granulocytes/100 WBC (Bld)0.6 % High0.0-0.5FOhioHealth Berger HospitalLeukocytes [#/volume] corrected for nucleated erythrocytes in Blood by Automated counon 46-82-2409UKE corrected for nucl RBC Auto (Bld) [#/Vol]Leukocytes [#/volume] corrected for nucleated erythrocytes in Blood by Automated coun4.0-11.0[facility] Lymphocytes Auto (Bld) [#/Vol]on 07-30-6287Vddhwrkcwlv (Bld) [#/Vol]Lymphocytes [#/volume] in Blood by Automated count1.2-3.8[facility] Lymphocytes/100 WBC Auto (Bld)on 24-92-8332Xxjrffvoutj/100 WBC (Bld) Lymphocytes/100 leukocytes in Blood by Automated count20.5-60.0[facility] Medical CenterMCH Auto (RBC) [Entitic mass]on 47-23-0421XCF (RBC) [Entitic mass]MCH [Entitic mass] by Automated count26.7-34.0[facility] CenterMCHC Auto (RBC) [Mass/Vol]on 00-64-4003EVLK (RBC) [Mass/Vol]MCHC [Mass/volume] by Automated count29.9-35.2FOhioHealth Berger HospitalMCV Auto (RBC) [Entitic vol]on 25-55-6413ALX (RBC) [Entitic vol]MCV [Entitic volume] by Automated count81.0-99.0[facility] CenterMonocytes Auto (Bld) [#/Vol]on 27-14-6942Pxejjsagf (Bld) [#/Vol]Automated blood monocyte count0.3-0.8 [facility] CenterMonocytes/100 WBC Auto (Bld)on 07-19-2024 Monocytes/100 WBC (Bld)Automated monocyte %1.7-12.0[facility] CenterNeutrophils Auto (Bld) [#/Vol]on 41-13-6580Wteerkpiufd (Bld) [#/Vol] Neutrophils [#/volume] in Blood by Automated count1.4-6.5FOhioHealth Berger HospitalNeutrophils/100 WBC Auto (Bld)on 85-10-9136Fcloetswjhm/100 WBC (Bld)Automated neutrophil %43.0-75.0[facility] CenterNo Panel Informationon 66-12-5898Cysepkclzst # (Auto)0.1 10 3/uL0.0-0.7FOhioHealth Berger HospitalHuman Chorionic Gonadotropin, Kgzih425 mIU/mLCincinnati Va Medical CenterComment on above:5-50 0.2-1 ERZQ72-177 1-2 CHABY733-0,000 2-3 UBTGT687-72,000 3-4 WEEKS1,000-50,000 4-5 WEEKS10,000-100,000 5-6 WEEKS15,000- 200,000 6-8 WEEKS10,000-100,000 2-3 MONTHSImmature Granulocyte # (Auto)0.03 10 3/uL0.00-0.03C[facility] Medical CenterPlatelet mean volume Auto (Bld) [Entitic vol]on 21-78-6523Sriglrpr mean volume (Bld) [Entitic vol]Platelet mean volume [Entitic volume] in Blood by Automated countLow9.5-13.5FOhioHealth Berger HospitalPlatelets Auto (Bld) [#/Vol]on 31-91-5079Fjsrmzskh (Bld) [#/Vol] Platelets [#/volume] in Blood by Automated hervy917-964EwzxojizsCincinnati Va Medical CenterRBC Auto (Bld) [#/Vol]on 20-38-7354KRR (Bld) [#/Vol]Erythrocytes [#/volume] in Blood by Automated count4.20-5.40[facility] No Panel Informationon 59-49-0786Gpwik Chorionic Gonadotropin, Atxlb129 mIU/mL [facility] CenterComment on above:5-50 0.2-1 EVAO89-981 1-2 QFCSZ180-5,000 2-3 ZGHDG801-28,000 3-4 WEEKS1,000-50,000 4-5 WEEKS10,000-100,000 5-6 WEEKS15,000-200,000 6-8 WEEKS10,000-100,000 2-3 MONTHSTBH PREG QUANT HCGon 59-93-8667EPL MJSRUQZMTEKE498jIU/mLNOMS HealthcareComment on above:5-50 0.2-1 WEEK 50-500 1-2 WEEKS 100-5,000 2-3 WEEKS 500-10,000 3-4 WEEKS 1,000-50,000 4-5 WEEKS 10,000-100,000 5-6 WEEKS 15,000-200,000 6-8 WEEKS 10,000-100,000 2-3 MONTHS OSS HealthNo Panel Informationon 31-78-5260Cudzv Chorionic Gonadotropin, Qpjov764 mIU/mLCincinnati Va Medical CenterComment on above: 5-50 0.2-1 FLRE71-425 1-2 WYESC231-5,000 2-3 LTJTA652-30,000 3-4 WEEKS1,000- 50,000 4-5 WEEKS10,000-100,000 5-6 WEEKS15,000-200,000 6-8 WEEKS10,000-100,000 2-3 MONTHSTBH PREG QUANT HCGon 44-40-6703GZZ HRQOXBPFYTEJ881dJQ/mLNOMS HealthcareComment on above:5-50 0.2-1 WEEK 50-500 1-2 WEEKS 100-5,000 2-3 WEEKS 500-10,000 3-4 WEEKS 1,000-50,000 4-5 WEEKS 10,000-100,000 5-6 WEEKS 15,000-200,000 6-8 WEEKS 10,000-100,000 2-3 MONTHS CLINExcelsior Springs Medical CenterNo Panel Informationon 46-53-3385Tuusr Chorionic Gonadotropin, Tnaie541 mIU/mLCincinnati Va Medical CenterComment on above: 5-50 0.2-1 MCNN82-929 1-2 NAKLE275-2,000 2-3 PCNCF595-55,000 3-4 WEEKS1,000- 50,000 4-5 WEEKS10,000-100,000 5-6 WEEKS15,000-200,000 6-8 WEEKS10,000-100,000 2-3 MONTHSTBH PREG QUANT HCGon 78-48-6503SPV EJHJFFHRBAWT623tXP/mLNOMS HealthcareComment on above:5-50 0.2-1 WEEK 50-500 1-2 WEEKS 100-5,000 2-3 WEEKS 500-10,000 3-4 WEEKS 1,000-50,000 4-5 WEEKS 10,000-100,000 5-6 WEEKS 15,000-200,000 6-8 WEEKS 10,000-100,000 2-3 MONTHS CLINExcelsior Springs Medical CenterNo Panel Information 71-95-4115Auqvl Chorionic Gonadotropin, Xocqy611 mIU/mLCincinnati Va Medical CenterComment on above: 5-50 0.2-1 RWHY44-409 1-2 MIYSX592-0,000 2-3 DGDPW632-30,000 3-4 WEEKS1,000- 50,000 4-5 WEEKS10,000-100,000 5-6 WEEKS15,000-200,000 6-8 WEEKS10,000-100,000 2-3 MONTHSTBH PREG QUANT HCGon 46-12-9705FPR JBYGJPZCHFTV159vZG/mLNOMS HealthcareComment on above:5-50 0.2-1 WEEK 50-500 1-2 WEEKS 100-5,000 2-3 WEEKS 500-10,000 3-4 WEEKS 1,000-50,000 4-5 WEEKS 10,000-100,000 5-6 WEEKS 15,000-200,000 6-8 WEEKS 10,000-100,000 2-3 MONTHS [facility]ISY[facility] HealthcareMammography reportOrdered By: Karla Vance on 05-23-2024 Diagnostic [facility] [place] [address] [place] [address] Mammography Report Signed Patient: Julia Colorado MR#: [id number] : 1990 Acct:[id number] Age/Sex: 33 / F ADM Date: 5 Loc: [place] Room: Type: [facility] Attending Dr: Avila Roberts MD Copies to: Avila Roberts MD~ Ordering Provider: Avila Roberts MD Date of Service: 05/23/24 US/US breast RT limited: N63.10 - Unspecified lump inthe right breast, unspecifie... ([id number]) MM/MM diagnostic mammo BI w/CAD: N63.10 - [...] Karla Vance M.D.05/23/2024 3:16 PM Dictation Location: [facility] Transcribed By: JESSIKA 05/23/24 1516 Dictated By: Karla Vance II, MD 05/23/24 8025 Signed By: 05/23/24 1516 [facility] Work Phone: us breast RT limitedon 13-02-0469CK breast RT limited [facility] [place] [address] [place], [place] [id number] Mammography Report Signed Patient: Julia Colorado MR#: [id number] : 1990 Acct:[id number] Age/Sex: 33 / F ADM Date: 05/23/24 Loc: [place] Room: Type: [facility] Attending Dr: Avila Roberts MD Copies to: Avila Roberts MD Ordering Provider: Avila Roberts MD Date of Service: 05/23/24 US/US breast RT limited: N63.10 - Unspecified lump in the right breast, unspecifie... ([id number]) MM/MM diagnostic mammo BI w/CAD: N63.10 - [...] Karla Vance M.D.05/23/2024 3:16 PM Dictation Location: [facility] Transcribed By: JESSIKA 05/23/24 1516 Dictated By: Karla Vance II, MD 05/23/24 1455 Signed By: 05/23/24 1516[facility] GroupNo Panel InformationOrdered By: Manuela Corado on [id number] Strep (POC)[facility] Cytology Cervical or vaginal smear or scraping studyon [id number] PAP ACOG PANEL 2: 21 to 29on 08-14-2022..NormalOur Lady Of Mercy Hospital - AndersonComment on above:Result Comment: Performed at: WBPerformed By: #### AFPMAT #### [facility] [address] [place] [address] Dr. Elda Babcock Gdln ACOG Aifejyi08-50FpshwePebLima Memorial HospitalComment on above:Performed By: #### AFPMAT #### [facility] [address] [place] [address] Dr. Elda CaicedoDIAGNOSIS:CommentAbWilson HealthComment on above: Result Comment: EPITHELIAL CELL ABNORMALITY. LOW GRADE SQUAMOUS INTRAEPITHELIAL LESION (LSIL). Performed at: WBPerformed By: #### AFPMAT #### [facility] [address] [place] [address] Dr. Schroeder ChangElectronically signed by:[facility] Comment on above:Result Comment: Stephanie Jimenez MD, Pathologist Performed at: WBPerformed By: #### AFPMAT #### [facility] [address] [place] [address] Dr. Elda CaicedoMethodology:CommentNoLima Memorial HospitalComformerly [facility] on above: Result Comment: This liquid based ThinPrep(R) pap test was screened with the use of an image guided system. Performed at: WBPerformed By: #### AFPMAT #### [facility] [address] [place] [address] Dr. Elda CaicedoNote:CommentOhioHealth Southeastern Medical CenterComformerly [facility] on above:Result Comment: The Pap smear is a screening test designed to aid in the detection of premalignant and malignant conditions of the uterine cervix. It is not a diagnostic procedure and should not be used as the sole means of detecting cervical cancer. Both false-positive and false-negative reports do occur. . Performed at: WBPerformed By: #### AFPMAT #### [facility] [address] [place] [address] Dr. Elda CaicedoPathologist Provided WCE46HiptyujHkqsbmMruSheltering Arms Hospital Comment on above:Result Comment: R87.612 Performed at: WBPerformed By: #### AFPMAT #### [facility] [address] [place] [address] Dr. Elda CaicedoPerformed by:CommentOur Lady of Mercy Hospital on above: Result Comment: Deja Granados, [employer] (ASCP) Performed at: CYTNEPerformed By: #### AFPMAT #### [facility] [address] [place] [address] Dr. Elda CaicedoReflex Criteria:[facility] on above:Result Comment: The HPV DNA reflex criteria were not met with this specimen result therefore, no HPV testing was performed. . Performed at: Performed By: #### AFPMAT #### [facility] [address] [place] [address] Dr. Elda CaicedoSpecimemaria alejandra adequacy:[facility] on above:Result Comment: Satisfactory for evaluation. Endocervical and/or squamous metaplastic cells (endocervical component) are present. Performed at: WBPerformed By: #### AFPMAT #### [facility] [address] [place] [address] Dr. Elda CaicedoNadeen AUTO DIFFon [id number] #0.0 103/ulNormal0.0-0.1The [facility] HospitalComment on above:Performed By: #### CBC #### [facility] [address] [place] [address] Dr. Elda CaicedoBasophils/100 WBC (Bld)0.4 %Normal0.2-2.0[facility] Comment on above:Performed By: #### CBC #### [facility] [address] [address] [address] Elda Umanzor #0.5 103/ulNormal0.0-0.7The [facility] HospitalComment on above: Performed By: #### CBC #### [facility] [address] [address] [address] Elda Fordosinophils/100 WBC (Bld)4.6 %Normal0.9-7.0The [facility] Comment on above:Performed By: #### CBC #### [facility] [address] [place] [address] Dr. Elda Fordrythrocyte distribution width (RBC) [Ratio]13.4 %Hknfcs11.0-15.0 [facility] - AndersonComment on above:Performed By: #### CBC #### [facility] [address] [place] [address] Dr. Elda CaicedoHematocrit (Bld) [Volume fraction]30.3 %Critically low36.0-48.0 [facility] - AndersonComment on above:Performed By: #### CBC #### [facility] [address] [place] [address] Dr. Elda CaicedoHemoglobin (Bld) [Mass/Vol]10.0 g/dLCritically low12.0-16.0[facility] - AndersonComment on above:Performed By: #### CBC #### [facility] [address] [address] [address] Elda Aguilar #0.11 10e3/ulCritically high0.00-0.03The [facility] Comment on above:Performed By: #### CBC #### [facility] [address] [place] [address] Dr. Elda Aguilar %1.1 %Critically high0.0-0.5The [facility] HospitalComment on above:Performed By: #### CBC #### [facility] [address] [place] [address] Dr. Elda Armstrong #1.2 103/ulNormal1.2-3.8The [facility] HospitalComment on above:Performed By: #### CBC #### [facility] [address] [address] [address] Elda Boswellmphocytes/100 WBC (Bld)11.7 %Critically low20.5-60.0The [facility] HospitalComment on above:Performed By: #### CBC #### [facility] [address] [address] [address] Elda Lester DIFF REQNONormalThe [facility] HospitalComment on above: Performed By: #### CBC #### [facility] [address] [address] [address] Elda Carcamo (RBC) [Entitic mass]29.0 uuBqzqmu96.7-34.0The [facility] HospitalComment on above:Performed By: #### CBC #### [facility] [address] [place] [address] Dr. Elda Carcamo (RBC) [Mass/Vol]33.0 g/pMLrsvhx83.9-35.2The [facility] HospitalComment on above:Performed By: #### CBC #### [facility] [address] [place] [address] Dr. Elda CarcamoV (RBC) [Entitic vol]87.8 yPUlnqfm09.0-99.0The [facility] HospitalComment on above:Performed By: #### CBC #### [facility] [address] [place] [address] Dr. Elda Perez #0.6 103/ulNormal0.3-0.8The ACMC Healthcare Systemment on above:Performed By: #### CBC #### [facility] [address] [place] [address] Dr. Elda Carmenocytes/100 WBC (Bld)5.5 %Normal1.7-12.0The [facility] on above:Performed By: #### CBC #### [facility] [address] [place] [address] Dr. Elda Ordonez #7.7 103/ulCritically high1.4-6.5The [facility] Comment on above:Performed By: #### CBC #### [facility] [address] [address] [address] Elda Kruseutrophils/100 WBC (Bld)76.7 %Critically high43.0-75.0The [facility] HospitalComment on above:Performed By: #### CBC #### [facility] [address] [place] [address] Dr. Elda CaicedoPlatelet mean volume (Bld) [Entitic vol]9.4 fLCritically low 9.5-13.5The [facility] HospitalComment on above:Performed By: #### CBC #### [facility] [address] [place] [address] Dr. Elda CaicedoPLT235 103/drWfaeth616-218Woi [facility] HospitalComment on above: Performed By: #### CBC #### [facility] [address] [place] [address] Dr. Elda CaicedoRBC3.45 106/ulCritically low4.20-5.40The [facility] HospitalComment on above:Performed By: #### CBC #### [facility] [address] [place] [address] Dr. Elda CaicedoWBC10.0 103/ulNormal4.0-11.0The [facility] HospitalComment on above:Performed By: #### CBC #### [facility] [address] [place] [address] Dr. Elda CaicedoFETAL SCREENon 34-47-1021PGFTU SCREENNegativeNormalThe [facility] HospitalComment on above:Performed By: #### FETSCRN #### [facility] [address] [place] [address] Dr. Elda PayenC AUTO DIFFon 75-45-5718QTYT #0.0 103/ulNormal0.0-0.1The [facility] HospitalComment on above:Performed By: #### AFPMAT #### [facility] [address] [place] [address] Dr. Elda CaicedoBasophils/100 WBC (Bld)0.4 %Normal0.2-2.0The [facility] Comment on above:Performed By: #### AFPMAT #### [facility] [address] [place] [address] Dr. Elda Umanzor #0.1 103/ulNormal0.0-0.7The [facility] HospitalComment on above: Performed By: #### AFPMAT #### [facility] [address] [place] [address] Dr. Elda Fordosinophils/100 WBC (Bld)1.5 %Normal0.9-7.0The [facility] Comment on above:Performed By: #### AFPMAT #### [facility] [address] [place] [address] Dr. Elda Fordrythrocyte distribution width (RBC) [Ratio]13.2 %Atcekl02.0-15.0 The [facility] HospitalComment on above:Performed By: #### AFPMAT #### [facility] [address] [place] [address] Dr. Elda CaicedoHematocrit (Bld) [Volume fraction]36.1 %Ijebow33.0-48.0The [facility] HospitalComment on above:Performed By: #### AFPMAT #### [facility] [address] [place] [address] Dr. Elda CaicedoHemoglobin (Bld) [Mass/Vol]12.1 g/sHVlljro39.0-16.0The [facility] HospitalComment on above:Performed By: #### AFPMAT #### [facility] [address] [place] [address] Dr. Elda Aguilar #0.06 10e3/ulCritically high0.00-0.03The [facility] Comment on above:Performed By: #### AFPMAT #### [facility] [address] [place] [address] Dr. Elda Aguilar %0.8 %Critically high0.0-0.5The [facility] HospitalComment on above:Performed By: #### AFPMAT #### [facility] [address] [place] [address] Dr. Elda Armstrong #1.9 103/ulNormal1.2-3.8The [facility] HospitalComment on above:Performed By: #### AFPMAT #### [facility] [address] [place] [address] Dr. Elda Boswellmphocytes/100 WBC (Bld)26.1 %Bfnhrk15.5-60.0The [facility] HospitalComment on above:Performed By: #### AFPMAT #### [facility] [address] [place] [address] Dr. Elda Lester DIFF REQNONormalThe [facility] HospitalComment on above: Performed By: #### AFPMAT #### [facility] [address] [place] [address] Dr. Elda Carcamo (RBC) [Entitic mass]29.3 lcOssqvl29.7-34.0The [facility] HospitalComment on above:Performed By: #### AFPMAT #### [facility] [address] [place] [address] Dr. Elda Carcamo (RBC) [Mass/Vol]33.5 g/lBWarqbl95.9-35.2The [facility] HospitalComformerly [facility] on above:Performed By: #### AFPMAT #### [facility] [address] [place] [address] Dr. Elda Carcamo (RBC) [Entitic vol]87.4 vFRlflow55.0-99.0The [facility] HospitalComment on above:Performed By: #### AFPMAT #### [facility] [address] [place] [address] Dr. Elda Perez #0.5 103/ulNormal0.3-0.8The [facility] HospitalComformerly [facility] on above:Performed By: #### AFPMAT #### [facility] [address] [place] [address] Dr. Elda Carmenocytes/100 WBC (Bld)6.3 %Normal1.7-12.0The [facility] Comment on above:Performed By: #### AFPMAT #### [facility] [address] [place] [address] Dr. Elda Ordonez #4.7 103/ulNormal1.4-6.5The [facility] HospitalComment on above:Performed By: #### AFPMAT #### [facility] [address] [place] [address] Dr. Elda Kruseutrophils/100 WBC (Bld)64.9 %Juefnr85.0-75.0The [facility] HospitalComment on above:Performed By: #### AFPMAT #### [facility] [address] [place] [address] Dr. Elda Plunkett mean volume (Bld) [Entitic vol]9.4 fLCritically low 9.5-13.5The [facility] HospitalComment on above:Performed By: #### AFPMAT #### [facility] [address] [place] [address] Dr. Elda CaicedoPLT302 103/xoNyoque599-436Wea [facility] HospitalComment on above: Performed By: #### AFPMAT #### [facility] [address] [place] [address] Dr. Elda CaicedoRBC4.13 106/ulCritically low4.20-5.40The [facility] HospitalComment on above:Performed By: #### AFPMAT #### [facility] [address] [place] [address] Dr. Elda CaicedoWBC7.2 103/ulNormal4.0-11.0The [facility] HospitalComment on above: Performed By: #### AFPMAT #### [facility] [address] [place] [address] Dr. Elda Dodson-19 PCR ([facility])on 61-62-8409GTBM-CoV-2 (COVID-19) RNA SHARRI+probe Ql (Unsp spec)Not detectedNormalNOT DETECTEDThe [facility] Comment on above:Result Comment: When diagnostic testing is negative, the [...] for this test is supported by the [place] of Health and Human Service's declaration that circumstances exist to justify the emergency use of in vitro diagnostics for the detection and/or diagnosis of the virus that causes COVID-19. This EUA will remain in effect for the duration of the COVID-19 declaration justifying emergency of IVDs, unless it is terminated or revoked by the FDA (after which the test may no longer be used).Performed By: #### AFPMAT #### [facility] [address] [place] [address] Dr. Elda Carlos SCREEN RAPID (URINE)on 34-59-5889AYPQwpdohfpLchnxfVHSXIRVP [facility] on above:Performed By: #### AFPMAT #### [facility] [address] [place] [address] Dr. Elda KaurNegativeNormalNEGATIVEOur Lady Of Mercy Hospital - AndersonComformerly [facility] on above: Performed By: #### AFPMAT #### [facility] [address] [place] [address] Dr. Elda CaicedoBUPNegativeNormalNEGATIVEOur Lady Of Mer[facility] Hospital - AndersonComformerly [facility] on above: Performed By: #### AFPMAT #### [facility] [address] [place] [address] Dr. Elda CaicedoBZONegativeNormalNEGATIVEOur Lady Of Mercy Hospital - AndersonComment on above: Performed By: #### AFPMAT #### [facility] [address] [place] [address] Dr. Elda ShresthaCNegativeNormalNEGATIVEOur Lady Of Mercy Hospital - AndersonComment on above: Performed By: #### AFPMAT #### [facility] [address] [place] [address] Dr. Elda Silvestre-Chillicothe HospitalComment on above: Result Comment: AMP (Amphetamine): 500ng/mL, BAR (Barbituates): 200 ng/mL, BZO (Benzodiazepines): 150 ng/mL, BUP (Buprenorphine): 10 ng/mL, TERE (Cocaine): 150 ng/mL, mAMP (Methamphetamine): 500 ng/mL, MTD (Methadone): 200 ng/mL, OPI (Opiates): 100 ng/mL, OXY (Oxycodone): 100 ng/mL, PCP (Phencyclidine): 25 ng/mL, PPX (Propoxyphene): 300 ng/mL, THC (Cannabinoids): 50 ng/mL, TCA (Trycyclic Antidepressants): 300 ng/mLPerformed By: #### AFPMAT #### [facility] [address] [place] [address] Dr. Elda CaicedoDRUG CUT HEADERDRUG CLASS TEST SYSTEM CUT-OFF CONCENTRATIONS ARE FOLLOWS:NormalUniversity Hospitals Conne[facility] Center on above:Performed By: #### AFPMAT #### [facility] [address] [place] [address] Dr. Elda CaicedomAMPNegativeNormalNEGATIVEUniversity Hospitals Conneaut Medical Center on above: Performed By: #### AFPMAT #### [facility] [address] [place] [address] Dr. Elda CaicedoMTDNegativeNormalNEGATIVEUniversity Hospitals Conneaut Medical Center on above: Performed By: #### AFPMAT #### [facility] [address] [place] [address] Dr. Elda MuñizINegativeNormalNEGATIVEUniversity Hospitals Conneaut Medical Center on above: Performed By: #### AFPMAT #### [facility] [address] [place] [address] Dr. Elda CaicedoOXYNegativeNormalNEGATIVEUniversity Hospitals Conneaut Medical Center on above: Performed By: #### AFPMAT #### [facility] [address] [place] [address] Dr. Elda CaicedoPCPNegativeNormalNEGATIVEUniversity Hospitals Conneaut Medical Center on above: Performed By: #### AFPMAT #### [facility] [address] [address] [address] Edla CaicedoPPXNegativeNormalNEGATIVEOur Lady Of Mercy Hospital - AndersonComment on above: Performed By: #### AFPMAT #### [facility] [address] [place] [address] Dr. Elda CaicedoTCANegativeNormalNEGATIVEOur Lady Of Mercy Hospital - AndersonComment on above: Performed By: #### AFPMAT #### [facility] [address] [place] [address] Dr. Elda CaicedoTHCNegativeNormalNEGMercer County Community HospitalComformerly [facility] on above: Performed By: #### AFPMAT #### [facility] [address] [place] [address] Dr. Elda Osman AND SCREENon 61-49-5032RIAN AND SCREENAntibody Screen POSITIVE Blood Bank Notes Probable Anti-D due to RhIg administration at 28 weeks. Furhter workup at Blood Bank Notes physicians request. ABO Rh Typing B Rh NegativeNoLima Memorial HospitalComment on above:Performed By: #### TNS #### [facility] [address] [place] [address] Dr. Elda Strickland B STREP CULTUREon 04-09-2022. agalactiae Ag Ql (Unsp spec) Culture Observations: NEGATIVE FOR GROUP B STREPTOCOCCUS.NormalOur Lady Of Mercy Hospital - AndersonComformerly [facility] on above: Performed By: #### CBC #### [facility] [address] [place] [address] Dr. Elda Osman AND SCREENon 94-75-9583WQDL AND SCREENNegativeNormSouthwest General Health CenterComment on above:Performed By: #### TNS #### [facility] [address] [place] [address] Dr. Elda Josue (CLEAN/CATCH) CHANNEL SUPERVISOR/MICRO IF IND.on 18-30-5912Pbyeyrrnc Ql (U) NegativeNormalNEGMercer County Community HospitalComment on above:Performed By: #### CBC #### [facility] [address] [place] [address] Dr. Yilan ChangClarity (U)CLEARNormalCLEAROur Lady Of Mercy Hospital - AndersonComment on above: Performed By: #### CBC #### [facility] [address] [address] [address] Elda Shresthalor (U)LT. YELLOWNormalYELLOWOur Lady Of Mercy Hospital - AndersonComment on above:Performed By: #### CBC #### [facility] [address] [address] [address] Elda CaicedoGlucose Ql (U)NegativeNormalNEGATIVEOur Lady Of Mercy Hospital - AndersonComment on above:Performed By: #### CBC #### [facility] [address] [address] [address] Elda CaicedoHemoglobin Ql (U)NegativeNormalNEGATIVECincinnati Va Medical Center on above:Performed By: #### CBC #### [facility] [address] [place] [address] Dr. Elda CaicedoKetones Ql (U)TRACEAbnormalNEGATIVEOur Lady Of Mercy Hospital - AndersonComment on above:Performed By: #### CBC #### [facility] [address] [place] [address] Dr. Elda CaicedoLEUKOCYTESNegativeNormalNEGATIVEOur Lady Of Mercy Hospital - AndersonComment on above:Performed By: #### CBC #### [facility] [address] [place] [address] Dr. Elda CaicedoNitrite Ql (U)NegativeNormalNEGATIVEOur Lady Of Mercy Hospital - AndersonComment on above:Performed By: #### CBC #### [facility] [address] [address] [address] Elda CaicedopH (U)6.0 [pH]Normal5-9Our [facility] - AndersonComment on above: Performed By: #### CBC #### [facility] [address] [place] [address] Dr. Elda CaicedoSPEC GRAVITY1.505Utoqjg8.005-<=1.025The [facility] HospitalComment on above:Performed By: #### CBC #### [facility] [address] [place] [address] Dr. Elda CaicedoUA PROTEINNegativeNormalNEGATIVE/ TRACEThe [facility] Comment on above:Performed By: #### CBC #### [facility] [address] [place] [address] Dr. Elda Monahan MICRO INDNOT INDICATEDNormalThe [facility] HospitalComment on above:Performed By: #### CBC #### [facility] [address] [place] [address] Dr. Elda CaicedoUrobilinogen Qn (U)0.2 {Nathan'U}/dLNormal0.2 - 1.0The [facility] HospitalComment on above:Performed By: #### CBC #### [facility] [address] [place] [address] Dr. Elda CaicedoGLUCOSE - 1HRon 92-24-1303Sdkhhiv [Mass/Vol]135 mg/dLCritically kupx63-597Vfr [facility] HospitalComment on above:Performed By: #### GLU1HR #### [facility] [address] [place] [address] Dr. Elda CaicedoHEMOGRAM AND PLATELon 03-42-4894Tgetbuqymo (Bld) [Volume fraction]34.1 %Critically low36.0-48.0The [facility] HospitalComment on above: Performed By: #### AFPMAT #### [facility] [address] [place] [address] Dr. Elda CaicedoHemoglobin (Bld) [Mass/Vol]11.5 g/dLCritically low12.0-16.0The [facility] HospitalComment on above:Performed By: #### AFPMAT #### [facility] [address] [place] [address] Dr. Elda CaicedoMCH (RBC) [Entitic mass]31.3 muVlwakf43.7-34.0The [facility] HospitalComment on above:Performed By: #### AFPMAT #### [facility] [address] [place] [address] Dr. Elda CaicedoMCHC (RBC) [Mass/Vol]33.7 g/dHCphudh09.9-35.2The [facility] HospitalComment on above:Performed By: #### AFPMAT #### [facility] [address] [address] [address] Elda CarcamoV (RBC) [Entitic vol]92.7 bYWvgckr88.0-99.0The [facility] HospitalComment on above:Performed By: #### AFPMAT #### [facility] [address] [address] [address] Elda CaicedoPLT233 103/vdXzxalm091-649Ryl [facility] HospitalComment on above: Performed By: #### AFPMAT #### [facility] [address] [address] [address] Elda CaicedoRBC3.68 106/ulCritically low4.20-5.40The [facility] Memorial HospitalComformerly [facility] on above:Performed By: #### AFPMAT #### [facility] [address] [address] [address] Elda CaicedoWBC5.5 103/ulNormal4.0-11.0The [facility] Memorial HospitalComment on above: Performed By: #### AFPMAT #### [facility] [address] [place] [address] Dr. Elda CaicedoConsenharjit Formson [id number] Forms [id number]#1.00OTGTIFFNoMemorial Health System PREG ANATOMY SINGLEon 08-28-3370UT PREG ANATOMY SINGLEEXAMINATION: US PREG ANATOMY SINGLE HISTORY: anatomy study COMPARISON: No [...] Electronically authenticated by: OLIVIA LOTT Date: 2021-12-24 18:38[facility] CenterAFP MATERNAL FOR SPINA BIFIDAon [id number] MoM1.56[facility]heastern Medical CenterComment on above:Performed By: #### AFPMAT #### [facility] [address] [place] [address] Dr. Elda Mota Value92.5 ng/mLNMorrow County HospitalComment on above: Performed By: #### AFPMAT #### [facility] [address] [address] [address] Elda Mota, Serum for Spina BifidaReportOhioHealth Southeastern Medical Center Comment on above:Performed By: #### AFPMAT #### [facility] [address] [address] [address] Elda SmithLouis Stokes Cleveland VA Medical CenterComment on above:Result Comment: Susy Blackwell, Ph.D., [employer] Director . References: Available Upon Request. . Multiples Of Median Cutoffs For AFP Elevations Dyer 2.5 Black 2.8 IDD 2.0 Twins 4.5 Abbreviation Definitions IDD - Insulin Dep Diabetes OSBR - Open Spina Bifida Risk . For further inquiries contact [email or web address] [facility] at [phone]. . This test was developed and its performance characteristics determined by [employer]. It has not been cleared or approved by the Food and Drug Administration.Performed By: #### AFPMAT #### [facility] [address] [place] [address] Dr. Elda Horan Age Collection Date19.3 weeksOhioHealth Southeastern Medical Center Comment on above:Performed By: #### AFPMAT #### [facility] [address] [place] [address] Dr. Elda Horanat, Age Based onEFort Hamilton HospitalComment on above:Result Comment: 05/08/2022 Recalculations are not recommended when gestational dating by LMP and ultrasound are within 10 days.Performed By: #### AFPMAT #### [facility] [address] [place] [address] Dr. Elda Gutierres Dep DiabetesNoNMorrow County HospitalComment on above:Performed By: #### AFPMAT #### [facility] [address] [place] [address] Dr. Elda CaicedoInterpretationComSheltering Arms HospitalComment on above: Result Comment: Interpretation: Screen Negative . This result is screen [...] Customer Services to discuss available options. The [employer] recommends amniocentesis be offered to women age 35 and older.Performed By: #### AFPMAT #### [facility] [address] [place] [address] Dr. Elda CaicedoMaternajose Age at EDD31.3 yrOhioHealth Southeastern Medical CenterComment on above:Performed By: #### AFPMAT #### [facility] [address] [place], [place] [address] Dr. Elda Fontanaiplleonid GestationNoNEast [facility] on above: Performed By: #### AFPMAT #### [facility] [address] [address] [address] Elda ValentinBR Risk 1 [id number] Medical Specialty Hospital - [facility] North on above: Performed By: #### AFPMAT #### [facility] [address] [address] [address] Elda CaicedoPDF.NormalUniversity Hospitals Conneaut Medical Center on above:Performed By: #### AFPMAT #### [facility] [address] [address] [address] Elda CisnerosCaucasianNEast [facility] on above: Performed By: #### AFPMAT #### [facility] [address] [place] [address] Dr. Elda Love Results:NegativeOur Lady of Mercy Hospital on above: Performed By: #### AFPMAT #### [facility] [address] [place] [address] Dr. Elda Ramirez IG,rfx Aptima HPV all pthon 12-05-2021..NormalUniversity Hospitals Conneaut Medical Center on above:Performed By: #### AFPMAT #### [facility] [address] [place] [address] Dr. Elda CaicedoDIAGNOSIS:CommentAbOhio State Health System on above: Result Comment: EPITHELIAL CELL ABNORMALITY. ATYPICAL SQUAMOUS CELLS OF UNDETERMINED SIGNIFICANCE (ASC-US).Performed By: #### AFPMAT #### [facility] [address] [place] [address] Dr. Schroeder ChangElectronically signed by:CommentOhioHealth Southeastern Medical Center Comment on above:Result Comment: Ashia Browning MD, PathologistPerformed By: #### AFPMAT #### [facility] [address] [place] [address] Dr. Elda CaicedoHPAna Cristina AptimaNegativeNormalNegativeUniversity Hospitals Conneaut Medical Center on above:Result Comment: This nucleic acid amplification test detects fourteen high-risk HPV types (16,18,31,33,35,39,45,51,52,56,58,59,66,68) without differentiation.Performed By: #### AFPMAT #### [facility] [address] [place] [address] Dr. Elda CaicedoMethodology:CommentOur Lady of Mercy Hospital on above: Result Comment: This liquid based ThinPrep(R) pap test was screened with the use of an image guided system.Performed By: #### AFPMAT #### [facility] [address] [place] [address] Dr. Elda CaicedoNote:CommentOur Lady of Mercy Hospital on above:Result Comment: The Pap smear is a screening test designed to aid in the detection of premalignant and malignant conditions of the uterine cervix. It is not a diagnostic procedure and should not be used as the sole means of detecting cervical cancer. Both false-positive and false-negative reports do occur. .Performed By: #### AFPMAT #### [facility] [address] [place] [address] Dr. Elda CaicedoPathologist Provided WYH97ZdopowdFhkmbhEjuSheltering Arms Hospital Comment on above:Result Comment: R87.610Performed By: #### AFPMAT #### [facility] [address] [place] [address] Dr. Elda CaicedoPerformed by:CommentOur Lady of Mercy Hospital on above: Result Comment: Magdalene Vera, [employer] (ASCP)Performed By: #### AFPMAT #### [facility] [address] [place] [address] Dr. Elda CaicedoRecommendation:CommentAbOhio State Health System on above:Result Comment: Suggest follow up as clinically appropriate.Performed By: #### AFPMAT #### [facility] [address] [place] [address] Dr. Elda CaicedoReflex Criteria:CommentOur Lady of Mercy Hospital on above:Result Comment: See below for HPV testing results. .Performed By: #### AFPMAT #### [facility] [address] [place] [address] Dr. Elda Vieira adequacy:CommentNormalThe [facility] HospitalComment on above:Result Comment: Satisfactory for evaluation. No endocervical component is identified.Performed By: #### AFPMAT #### [facility] [address] [place] [address] Dr. Elda CaicedoCHLAMYDIA/GONOCOCCUS SHARRI (SWAB/URINE/PAPon 84-30-6031Hkokxvbga trachomatis, NAANegativeNormalNegativeOur Lady Of Mercy Hospital - AndersonComment on above: Performed By: #### CBC #### [facility] [address] [place] [address] Dr. Elda Cazareseria gonorrhoeae, NAANegativeNormalNegativeOur Lady Of Mercy Hospital - AndersonComment on above:Performed By: #### CBC #### [facility] [address] [place] [address] Dr. Elda CaicedoVAGINITIS/VAGINOSIS DNA PROBEon [id number] speciesNegative NormalNegativeOur Lady Of Mercy Hospital - AndersonComment on above:Performed By: #### VAGINT #### [facility] [address] [place] [address] Dr. Elda Chandnerella vaginalisNegativeTampaNegWhite Hospital Comment on above:Performed By: #### VAGINT #### [facility] [address] [place] [address] Dr. Elda CaicedoTrichomonas vaginalisNegativermalNegWhite Hospital Comment on above:Performed By: #### VAGINT #### [facility] [address] [place] [address] Dr. Elda Higgins B SURFACE ANTIGEN SCREENon 93-85-7721MPwLd ScreenNegative NormalNegativeOur Lady Of Mercy Hospital - AndersonComment on above:Performed By: #### CBC #### [facility] [address] [place] [address] Dr. Elda Maier C VIRUS AB W/ REFLEX QUANTon [id number] AB<0.1Normal 0.0-0.9[facility] on above:Performed By: #### CBC #### [facility] [address] [place] [address] Dr. Elda CaicedoInterpretation:CommentNormalThe [facility] on above:Result Comment: Negative Not infected with HCV, unless recent infection is suspected or other evidence exists to indicate HCV infection.Performed By: #### CBC #### [facility] [address] [place] [address] Dr. Elda CaicedoHIV 1 AND 2 WITH REFLEXon [id number] Screen 4th Generation wRfxNon-ReactiveNormalNon ReactiveThe [facility] on above:Result Comment: HIV Negative HIV-1/HIV-2 antibodies and HIV-1 p24 antigen were NOT detected. There is no laboratory evidence of HIV infection.Performed By: #### CBC #### [address] [address] Dr[address] Elda CaicedoRPR QUANTon 90-64-0531Mmmsp Plasma Reagin, QuantNon-Reactive NormalNonRea<1:1[facility] on above:Result Comment: Please Note: This test does not meet current guidelines for screening and diagnosis of syphilis. This test is intended for following treatment response in patients being treated for syphilis infection. To screen for syphilis infection, a reflex cascade that includes both RPR and a treponema-specific assay should be utilized, such as Treponema pallidum (Syphilis) Screening [place] (547473) or Rapid Plasma Reagin (RPR) Test With Reflex to Quantitative RPR and Confirmatory Treponema pallidum Antibodies (670594).Performed By: #### AFPMAT #### [address] [address] [address] Elda CaicedoRUBELLA AB IGGon 84-78-6564[place]ak Antibodies, IgG5.69 index NormalImmune >0.99[facility] on above:Result Comment: Non- immune <0.90 Equivocal 0.90 - 0.99 Immune >0.99Performed By: #### CBC #### [address], [place] [address] Dr. Elda Felder AUTO DIFFon [id number] #0.0 103/ulNormal0.0-0.1The [facility] HospitalComment on above:Performed By: #### CBC #### [facility] [address] [place] [address] Dr. Elda CaicedoBasophils/100 WBC (Bld)0.5 %Normal0.2-2.0The [facility] Comment on above:Performed By: #### CBC #### [facility] [address] [place] [address] Dr. Elda Umanzor #0.1 103/ulNormal0.0-0.7The [facility] HospitalComment on above: Performed By: #### CBC #### [facility] [address] [place] [address] Dr. Elda Fordosinophils/100 WBC (Bld)1.4 %Normal0.9-7.0[facility] Comment on above:Performed By: #### CBC #### [facility] [address] [place] [address] Dr. Elda Fordrythrocyte distribution width (RBC) [Ratio]12.8 %Jksoez72.0-15.0 The [facility] HospitalComment on above:Performed By: #### CBC #### [facility] [address] [place] [address] Dr. Elda CaicedoHematocrit (Bld) [Volume fraction]39.1 %Pkkqit33.0-48.0The [facility] HospitalComment on above:Performed By: #### CBC #### [facility] [address] [place] [address] Dr. Elda CaicedoHemoglobin (Bld) [Mass/Vol]13.2 g/iYUkrdfw68.0-16.0The [facility] HospitalComment on above:Performed By: #### CBC #### [facility] [address] [place] [address] Dr. Elda Aguilar #0.02 10e3/ulNormal0.00-0.03The ACMC Healthcare Systemment on above:Performed By: #### CBC #### [facility] [address] [address] [address] Elda Aguilar %0.5 %Normal0.0-0.5The [facility] HospitalComformerly [facility] on above: Performed By: #### CBC #### [facility] [address] [place] [address] Dr. Elda Armstrong #1.5 103/ulNormal1.2-3.8The [facility] HospitalComment on above:Performed By: #### CBC #### [facility] [address] [place] [address] Dr. Elda Paezhocytes/100 WBC (Bld)34.9 %Dxrzbo67.5-60.0[facility] on above:Performed By: #### CBC #### [facility] [address] [place] [address] Dr. Elda Lester DIFF REQNONormalThe [facility] HospitalComment on above: Performed By: #### CBC #### [facility] [address] [place] [address] Dr. Elda Green (RBC) [Entitic mass]29.9 jlXluxsr03.7-34.0[facility] on above:Performed By: #### CBC #### [facility] [address] [place] [address] Dr. Elda Carcamo (RBC) [Mass/Vol]33.8 g/mEFzateo94.9-35.2The [facility]CMC Healthcare Systemment on above:Performed By: #### CBC #### [facility] [address] [place] [address] Dr. Elda Carcamo (RBC) [Entitic vol]88.5 gRXnabeo50.0-99.0[facility] on above:Performed By: #### CBC #### [facility] [address] [place] [address] Dr. Elda Perez #0.3 103/ulNormal0.3-0.8The [facility] HospitalComment on above:Performed By: #### CBC #### [facility] [address] [place] [address] Dr. Elda Carmenocytes/100 WBC (Bld)5.7 %Normal1.7-12.0[facility] Comment on above:Performed By: #### CBC #### [facility] [address] [place] [address] Dr. Elda KruseUT #2.5 103/ulNormal1.4-6.5The [facility] HospitalComment on above:Performed By: #### CBC #### [facility] [address] [place] [address] Dr. Elda Kruseutrophils/100 WBC (Bld)57.0 %Ytmnld22.0-75.0The [facility] HospitalComment on above:Performed By: #### CBC #### [facility] [address] [place] [address] Dr. Elda Valderramalet mean volume (Bld) [Entitic vol]8.7 fLCritically low 9.5-13.5The [facility] HospitalComment on above:Performed By: #### CBC #### [facility] [address] [place] [address] Dr. Elda CaicedoPLT272 103/egLinbmy643-411Gmf [facility] HospitalComment on above: Performed By: #### CBC #### [facility] [address] [place] [address] Dr. Elda CaicedoRBC4.42 106/ulNormal4.20-5.40The [facility] HospitalComment on above:Performed By: #### CBC #### [facility] [address] [place] [address] Dr. Elda CaicedoWBC4.4 103/ulNormal4.0-11.0The [facility] HospitalComment on above: Performed By: #### CBC #### [facility] [address] [place] [address] Dr. Elda Lo URINEon [id number] URINECulture Observations: LIGHT GROWTH OF MIXED GENITAL TONYA. NO POTENTIAL PATHOGENS SEEN.NormalThe [facility] HospitalComment on above:Performed By: #### URCX #### [facility] [address] [address] [address] Elda CaicedoGLYCOHEMOGLOBIN A1Con 62-92-8317GDC RECOMMENDATIONSEE BELOWNormal The [facility] HospitalComment on above:Result Comment: ADA RECOMMENDED LIMIT 4.0 - 6.0 ADA THERAPEUTIC TARGET < 7.0 ACTION SUGGESTED > 7.0Performed By: #### A1C #### [facility] [address] [address] [address] Elda CaicedoGlucose [Mass/Vol]100 mg/dLNoLima Memorial HospitalComment on above:Performed By: #### A1C #### [facility] [address] [place] [address] Dr. Elda CaicedoHbA1c (Bld) [Mass fraction]5.1 %Normal4.5-6.2The [facility] HospitalComment on above:Performed By: #### A1C #### [facility] [address] [address] [address] Elda CaicedoTYPE AND SCREENon 18-75-7749LUWY AND SCREENNegativeOhioHealth Southeastern Medical CenterComment on above:Performed By: #### CBC #### [facility] [address] [place] [address] Dr. Edla CaicedoUS PREG TVon [id number] PREG TVEXAMINATION: US PREG TV HISTORY: Missed period COMPARISON: [...] Electronically authenticated by: FCO WYLIE Date: 2021-10-03 14:37[facility] Medical CenterCoding Summaryon [id number] SummaryHTMLBase 64 OgygqcadHSr6iLi+PGhlYWQ+[id number] biAv [file] cHN (more content not included)...[facility] HospitalED Clinical Summaryon [id number] [facility] [address] [place] [address] Clinical Summary PERSON INFORMATION Name: JULIA COLORADO Age: 30 Years Sex: FEMALE : 1990 MRN: Acct#: Visit Reason: UC - Eye Redness; UC - Eye Redness; RIGHT EYE IRRITATION Arrival: 08/19/2021 12:52:37 Discharge: 08/19/2021 13:50:00 LOS: 000 00:58 Check In: 08/19/2021 12:52:37 Checkout: 08/19/2021 13:50:00 Address: [address] [place], [place] [address] [address] PCP: Avila Roberts MD PROVIDER INFORMATION Provider Role Assigned Unassigned Lesvia Hills RN ED Nurse 08/19/2021 12:54:31 Ko Desir ED PA 08/19/2021 12:57:58 VITALS INFORMATION Vital Sign Triage Latest Temperature Tympanic Temperature Temporal Artery Pulse Rate O2 Sat 98 % 98 % Respiratory Rate Blood Pressure /68 mmHg /68 mmHg MEDICAL INFORMATION Medications Given: Allergy Information: No Known Medication Allergies PHYSICIAN DOCUMENTATION DISCHARGE INFORMATION: Discharge Disposition: Home Discharge Location: Home PATIENT EDUCATION INFORMATION Instructions: Bacterial Conjunctivitis, Adult, Fdke-mt-Giuk Follow-Up: With: Address: When: Avila Roberts [address] [facility], [facility] [place] [address] [facility] (1) Comments: Begin on the the antibiotic drops take as written until gone If the symptoms persist or fail to resolve call to schedule follow up with Dr. Quezada technical lead [phone] office located at [address] [place] [address], otherwise follow-up with your primary care provider in 3-5 days Exercise good hygiene such as frequent handwashing, wiping off door handles Try not to touch the eye or near the eye. Can wash around the eye with warm water and no tears shampoo 3-4 times daily DIAGNOSIS: Right conjunctivitis Patient Understands: Yes - Patient/family/caregiver verbalizes understanding of instructions given Comment:[facility] HospitalED Patient Summaryon [id number] Patient Summary [facility] ? Urgent Care [address] [place] [address] PATIENT DISCHARGE INSTRUCTIONS Patient Information Name: JULIA COLORADO Age: 30 Years Date of : 1990 Reason For Visit: UC - Eye Redness; UC - Eye Redness; RIGHT EYE IRRITATION Arrival Time: 08/19/2021 12:52:37 Primary Care Physician: Avila Roberts MD Attending Physician: Ko Desir Comment: Patient Education With: Address: When: Avila Roberts [address] [place], [place] [address] [facility] (1) Comments: Begin on the the antibiotic drops take as written until gone If the symptoms persist or fail to resolve call to schedule follow up with Dr. Quezada technical lead [phone] office located at [address] [place] [address], otherwise follow-up with your primary care provider [...] infections that do not get better with dropsor ointment or that last more than 10 days. ? Cool, wet cloths placed on the eyes. ? Artificial tears used 2?6 times a day. Follow these instructions at home: Medicines ? Take or apply your antibiotic medicine as told by your doctor. Do not stop taking or applying theantibiotic even if you start to feel better. ? Take or apply wlhw-rdd-mondcfd and prescription medicines only as told by [...] provider. Document Revised: 08/23/2019 Document Reviewed: 12/08/2018 [employer] Patient Education ? 2020 [employer]. Medication Information: The exam and treatment you received today in the [facility] Emergency Department were for an urgent problem and are not intended as complete care. It is important for you to follow up with a doctor, nurse practitioner, or physician?s captain's assistant for ongoing care. If your symptoms become worse or yo (more content not included)...[facility] HospitalUrgent Care Note- Provideron 08-19-2021 Urgent Care Note- ProviderPatient: JULIA COLORADO Age: 30 years Sex: FEMALE : [...] States she is getting over a cold. Noblurred vision double vision or change in vision. [...] . Impression and Plan Diagnosis Right conjunctivitis (CJT24-FN H10.9, Discharge, Medical) Plan Prescriptions: Launch prescriptions Pharmacy: polymyxin B-trimethoprim 10,000 units-1 mg/mL ophthalmic solution (Prescribe): 1 drop(s), Right eye, q6hr, for 10 day(s), 10 mL, 0 Refill(s). Patient was given the following educational materials: Bacterial Conjunctivitis, Adult, Dimr-vl-Fgjc. Follow up with: Avila Roberts Begin on the the antibiotic drops take as written until gone If the symptoms persist or fail to resolve call to schedule follow up with Dr. Quezada technical lead [phone] office located at [address] [place] [address], otherwise follow-up with your primary care provider [...] Desir [Verified on: 08/19/2021 14:34 EDT] Ko DesirGrand Lake Joint [facility] District Memorial HospitalUrgent Care Recordon 08-19-2021 Urgent Care [facility] ? Urgent Care [address] [place] [address] PATIENT DISCHARGE INSTRUCTIONS Patient Information Name: JULIA COLORADO Age: 30 Years Date of : 1990 Reason For Visit: UC - Eye Redness; UC - Eye Redness; RIGHT EYE IRRITATION Arrival Time: 08/19/2021 12:52:37 Primary Care Physician: Avila Roberts MD Attending Physician: Ko Desir Comment: Visit Diagnosis: Diagnoses This Visit Right conjunctivitis (H10.9) UC - Eye Redness ([id number]) UC - Eye Redness ([id number]) If you received any narcotics, sedation, or [...] sign any legal documents With: Address: When: Avila Roberts [address] [place] [address] [place] [address] Business (1) Comments: Begin on the the antibiotic drops take as written until gone If the symptoms persist or fail to resolve call to schedule follow up with Dr. Quezada technical lead [phone] office located at [address] [place] [address], otherwise follow-up with your primary care provider in 3-5 days Exercise good hygiene such as frequent handwashing, wiping off door handles Try not to touch the eye or near the eye. Can wash around the eye with warm water and no tears shampoo 3-4 times daily Medication Information: The exam and treatment you received today in the [facility] were for an urgent problem and are not intended as complete care. It is important for you to follow up with a doctor, nurse practitioner, or physician?s captain's assistant for ongoing care. If your symptoms [...] so we can reach you if necessary. [facility] has provided you with a complete list of medications post discharge. Please inform your insurance claims processor/provider of your visit and for further instruction on these medications. Any specific questions regarding your chronic medications and dosages should be discussed with your primary care physician(s) and/or pharmacist. New Medications [id number], [address] [place], [place] [phone], [phone] polymyxin B-trimethoprim ophthalmic (polymyxin B-trimethoprim 10,000 units-1 [...] system). ? Have dr (more content not included)...[facility] [facility] HospitalNicotine Metabolite, Urine LCon 98-34-5972Fcukzrmh LCNegativeInvalid Interpretation Code Axtszz=365Qhtnszuq HospitalComment on above:Order Comment: order shows MMR to be drawn, patient states she didn't need it done, she gave the results to Zaid in HR this morning APResult Comment: Performed At: [facility] [address] [facility] [place], [place] [id number] Magdy Recinos PhD Ph:[phone] By: #### [id number] #### [facility] (DEFAULT) [address] [place] [address] Vital Signs Date TimeVital SignValuePerforming UuqvcfdkaEqlhzhkk72-37-4685 09:51-0400Body mass index (BMI) [Ratio]22.96 kg/b3JcruyHelen [facility]10-17-2025 09:51-0400 Body yhrzna58.6 kgHel[facility]10-17-2025 09:51-0400Diastolic blood icyxowol56 mm[Hg][facility]10-17-2025 09:51-0400Systolic blood rqlaeaar359 mm[Hg][facility]06-16-2025 08:44-0400Body mass index (BMI) [Ratio]22.96 kg/f4Xeeyw Bebeto DO Work Phone: [facility] InstituteMnrexhnbss73-49-2030 08:44-0400Body bfwwja38.6 kg Keshawn Bebeto DO Work Phone: [phone] [place], [place] [address]Djqvjxvkyd43-46-3666 08:44-0400Diastolic blood mm[Hg]Keshawn Bebeto DO Work Phone: [phone] [place], [place] [address]Otlvvtlzur18-06-2199 08:44-0400Systolic blood rcubulfq667 mm[Hg]Keshawn Bebeto DO Work Phone: [facility] InstituteQbyfotgxoc78-74-0046 15:18-0400Body ovrqen007.1 cmAvila Roberts MD Work Phone: [facility]03-20-2025 15:18-0400 Body mass index (BMI) [Ratio]23 kg/j2ZgpmikAvila Roberts MD Work Phone: [facility]03-20-2025 15:18-0400 Body horqklqzlvw11.2 [degF]Avila Roberts MD Work Phone: [facility]03-20-2025 15:18-0400 Body xdnvev01.82 kgAvila Roberts MD Work Phone: [facility]03-20-2025 15:18-0400 Diastolic blood vauidspg34 mm[Hg]Avila Roberts MD Work Phone: [phone])[address]03-20-2025 15:18-0400 Heart rate73 /Rebeca Roberts MD Work Phone: 1(671)[address] [place], [place] 9284[address]-20-2025 15:18-0400 Systolic blood wyffhfvo339 mm[Hg]Avila Roberts MD Work Phone: 1(256)[address] [place], [place] 9284103-19-2025 15:04-0400 Body mass index (BMI) [Ratio]23.2 kg/r3Trsot Bebeto DO Work Phone: 1(590)[address] [place], [place] 2360803-19-2025 15:04-0400Body hqtxay22.23 kgCorey Bebeto DO Work Phone: 1(496)[address] [place], [place] 2360803-19-2025 15:04-0400Diastolic blood mgpkynen03 mm[Hg]Keshawn Bebeto DO Work Phone: 1(184)[facility] [place], [place] [address]Pfpeqvjoca30-55-6499 15:04-0400Systolic blood mm[Hg]Keshawn Bebeto DO Work Phone: 1(409)[address] [place], [place] 2360812-04-2024 11:02-0500Body ulfnyg582.1 cmAvila Roberts MD Work Phone: 1(362)[address] [place], [place] [address]284112-04-2024 11:02-0500 Body mass index (BMI) [Ratio]23.3 kg/i9UolacfAvila Roberts MD Work Phone: 1([phone])[facility] [place], [place] 735[address]12-04-2024 11:02-0500 Body sixpht32.5 kgAvila Roberts MD Work Phone: 1(859)[address] [place], [place] 9284112-04-2024 11:02-0500 Diastolic blood mm[Hg]Avila Roberts MD Work Phone: 1(894)[address] [place], [place] 9284112-04-2024 11:02-0500 Heart rate73 /Rebeca Roberts MD Work Phone: 1(265)[address] [place], [place] [address]284112-04-2024 11:02-0500 Systolic blood mm[Hg]Avila Roberts MD Work Phone: [facility]06-07-2024 09:40-0400 Body qzmfef785.1 cmC[facility]06-07-2024 09:40-0400Body mass index (BMI) [Ratio]22.4 kg/w9GnzwggpplCincinnati Va Medical Center06-07-2024 09:40-0400Body omrfbx00.23 kgC[facility]06-07-2024 09:40-0400Diastolic blood hyixbpid19 mm[Hg][facility] 10-23-2023 09:40-0400Heart rate80 /[facility] 10-23-2023 09:40-0400Systolic blood ycbsbfam585 mm[Hg][facility]05-20-2024 15:22-0400Body pnjkce934.1 cmC[facility] 10-05-2023 15:22-0400Body mass index (BMI) [Ratio]22.8 kg/o4DvlcnkqowCincinnati Va Medical Center05-20-2024 15:22-0400Body voqjzneouen20.8 [degF][facility]05-20-2024 15:22-0400Body pekvbq72.14 kgC[facility]05-20-2024 15:22-0400Diastolic blood satmnkci41 mm[Hg][facility]05-20-2024 15:22-0400Heart rate99 /[facility]05-20-2024 15:22-0400Respiratory rate18 /[facility]05-20-2024 15:22-5661LsD5% (BldA) [Mass fraction]99 %[facility]05-20-2024 15:22-0400Systolic blood zavhrczl51 mm[Hg] [facility]08-08-2022 17:06-0400Body prrybi26.8752 kgDR KESHAWN TATE .[facility] HospitalComment on above:Performed By: #### AFPMAT #### [facility] [address] [place] [address] Dr. Yilan Caicedo Encounters Encounter DateEncounter TypeCare ProviderFacilityStart: 03-13-2025 End: 79-49-6513Oakimtuym Result EncounterCorey Bebeto DO Work Phone: [facility] External Department UnsolicitedStart: 03-13-2025 End: 12-67-2366Klfjmndkh Result EncounterCorey Bebeto DO Work Phone: [facility] External Department UnsolicitedStart: 03-03-2025 End: 48-77-2509pktypdsxolJdgyr Nurse [facility] Bcp ObNOMS Patrick OBGYNComment on above:GA: 5h5rKnkpz: 11-07-2024 End: 99-94-0304Ejdjef outpatient visit [address] [facility] Work Phone: [facility] SWS DERMComment on above:Melanocytic nevus of trunk (Primary Dx); Lentigo simplex; History of removal of nevusStart: 11-07-2024 End: 12-15-7080jjguefvibcAMOMW NORTHEIMNot AvailableStart: 11-07-2024 End: 01-16-8493Llceyk [facility] Work Phone: [facility] SWS DERMStart: 11-07-2024 End: 97-19-2413Omabje [facility] Work Phone: [facility] SWS DERMStart: 10-31-2024 End: 25-85-6713Hfpils flowsheetCorey Bebeto DO Work Phone: [facility] BCP OBStart: 10-31-2024 End: 35-95-7141Sxljgm flowsheetCorey Bebeto DO Work Phone: [facility] BCP OBStart: 10-31-2024 End: 95-23-8120Vzadznbpu Result EncounterCorey Bebeto DO Work Phone: [facility] External Department UnsolicitedStart: 10-31-2024 End: 80-23-3694Djgxmbc encounter procedureCorey Bebeto DO Work Phone: [facility] HealthcareStart: 10-31-2024 End: 47-38-3893Gcrrnhko preventive med est patient 18-39 yrsCorey Bebeto DO Work Phone: noms BCP OBComment on above:Well woman exam with routine gynecological examStart: 10-31-2024 End: 31-37-7014ikgxbwdccuJWGKJ FAZIONot AvailableStart: 08-04-2024 End: 05-21-3642lyimdtmwcjNziixx E Braun MD Work Phone: [facility] Work Phone: Start: 08-04-2024 End: 34-69-8574Tlxptwz encounter procedureAvila Roberts MD Work Phone: [facility] Work Phone: Start: 57-62-2579Hbx-patient / Non-visitAvila Roberts MD Work Phone: [facility] Work Phone: Start: 08-03-2024 End: 16-38-8499jnfqcvfsoxRPPVP FAZIONot AvailableStart: 08-03-2024 End: 42-63-3834Qojjfp follow up visit related to original pxCorey Bebeto DO Work Phone: noms BCP OBComment on above:Postop check; MiscarriageStart: 07-20-2024 End: 83-09-2901yqjaielypdQbhya FazioFacility:[facility] Start: 07-20-2024 End: 85-54-2402Yoxzudkq ReferredAvila Roberts MD Work Phone: [facility] Spec [facility] HospStart: 07-19-2024 End: 03-44-4548Qnzygohtb Result EncounterCorey Bebeto DO Work Phone: n[facility] External Department UnsolicitedStart: 07-19-2024 End: 57-33-5348Mxzgahgyi Result EncounterCorey Bebeto DO Work Phone: [facility] External Department UnsolicitedStart: 07-19-2024 Non-patient / Non-visitAvila Roberts MD Work Phone: [facility] Work Phone: Start: 63-80-2966Pwz-patient / Non-visitAvila Roberts MD Work Phone: [facility] Work Phone: Start: 07-17-2024 End: 03-34-3998Lcjbrilaj Result EncounterCorey Bebeto DO Work Phone: n[facility] External Department UnsolicitedStart: 07-17-2024 End: 54-97-6189Qezirjexb Result EncounterCorey Bebeto DO Work Phone: noms External Department UnsolicitedStart: 07-15-2024 End: 96-26-9317Bbbwlciws Result EncounterCorey Bebeto DO Work Phone: n[facility] External Department UnsolicitedStart: 07-15-2024 End: 54-83-0184Ljkfxrico Result EncounterCorey Bebeto DO Work Phone: n[facility] External Department UnsolicitedStart: 07-15-2024 Non-patient / Non-visitAvila Roberts MD Work Phone: [facility] Work Phone: Start: 07-13-2024 End: 95-73-6524Vorrywakk Result EncounterCorey Bebeto DO Work Phone: n[facility] External Department UnsolicitedStart: 07-13-2024 End: 86-89-2830Yjkzwdbfa Result EncounterCorey Bebeto DO Work Phone: n[facility] External Department UnsolicitedStart: 07-13-2024 Non-patient / Non-visitAvila Roberts MD Work Phone: [facility] Work Phone: Start: 13-12-2598Hqe-patient / Non-visitAvila Roberts MD Work Phone: [facility] Work Phone: Start: 07-11-2024 End: 17-89-5298Sgneukebz Result EncounterCorey Bebeto DO Work Phone: n[facility] External Department UnsolicitedStart: 07-11-2024 End: 25-92-5690Linkkwkfb Result EncounterCorey Bebeto DO Work Phone: noms External Department UnsolicitedStart: 06-09-2024 End: 63-24-4671ozpwryolidBmkqyq E Braun MD Work Phone: [facility] Work Phone: Start: 06-09-2024 End: 50-75-8971Lpbslsi encounter procedureAvila Roberts MD Work Phone: [facility] Work Phone: Start: 05-23-2024 End: 85-50-7324Fkrtxbo encounter Abdulaziz Roberts MD Work Phone: [facility] Work Phone: Start: 05-23-2024 End: 81-32-5385pomrziqgomGqzmyu E Braun MD Work Phone: [facility] Work Phone: Start: 04-20-2024 End: 11-73-9100Bouzyah encounter procedureAvila Roberts MD Work Phone: [facility] Work Phone: Start: 47-63-2065Biyokxy encounter [facility]: 10-23-2023 End: 37-42-7306sbscgfxrpaGnhuftxoiWestern Reserve Hospital Work Phone: Start: 10-23-2023 End: 57-78-7059Bfkjblxyh for general adult medical examination without abnormal findingsKettering Health [facility] Medical Centertart: 10-23-2023 End: 14-13-7776Cindpdf encounter procedureUn[facility] Work Phone: Start: 10-05-2023 End: 36-32-2501xdseompqewXuvwpykvpWestern Reserve Hospital Work Phone: Start: 10-05-2023 End: 38-86-3340Gzuvzdb encounter procedureUn[facility] Work Phone: Start: 08-06-2022 End: 43-90-3999xkzsdudwrxDG KESHAWN BEBETO .Facility:X6Mrybi: 05-05-2022 End: 59-51-6874akotxovxaiRA AVILA ROBERTSFacility:P9Ezbyr: 05-01-2022 End: 19-64-6495Dsjkfeorbg and management of inpatientDR KESHAWN BEBETO .Facility:H1 Start: 55-32-2198Ggggiohfiy and management of inpatientDR AVILA Leonid ARMANDO Facility:Y2Ddtfc: 04-09-2022 End: 94-06-6343bndcuvgnvlCA KESHAWN BEBETO .Facility:K4Yzcmz: 02-26-2022 End: 00-65-1746tgtlrjztliYO KESHAWN BEBETO .Facility:M9Yrtdk: 02-26-2022 End: 61-29-2722rpacdtjipqAZ MIREYA SMITHRUSSELLIsaac .Facility:R4Rnmgz: 02-15-2022 End: 33-15-4100wqmyfhgbqpOU KESHAWN BEBETO .Facility:H7Hxesw: 12-24-2021 End: 27-15-6260dgfkthxnpyHM OLIVIA LOTTFacility:Y3Syanz: 12-14-2021 End: 23-70-9027hndoyvslkhQB KESHAWN BEBETO .Facility:X4Iqllv: 11-27-2021 End: 14-47-5376bgapnuomgdFA KESHAWN BEBETO .Facility:O1Qrtll: 10-19-2021 End: 70-38-1101dfdlujglpmUC KESHAWN BEBETO .Facility:M3Afmoo: 10-03-2021 End: 43-35-5547doroolghgrBF KESHAWN BEBETO .Facility: Procedures DateProcedureProcedure DetailPerforming ClinicianStart: 85-55-8450PEK CBC WITH AUTO DIFFCorey Bebeto DO Work Phone: Start: 03-03-2025 End: 58-57-5207Hhpmt dip stick/tablet rgnt non-auto w/o micrscpCorey Bebeto DO Work Phone: Start: 37-27-6175KEX,APTIMA HPV,AGE GDLNCorey Bebeto DO Work Phone: Start: 21-32-3376Axaxgiqmhkr observation [Identifier] in Cervix by Cyto stainFazio ObStart: 55-39-0646GIM CBC WITH AUTO DIFFCorey Bebeto DO Work Phone: Start: 27-30-9108CML PREG QUANT HCGCorey Bebeto DO Work Phone: Start: 83-20-7550KDW PREG QUANT HCGCorey Bebeto DO Work Phone: Start: 67-35-4669VBY PREG QUANT HCGCorey Bebeto DO Work Phone: Start: 12-88-6531LWE PREG QUANT HCGCorey Bebeto DO Work Phone: Start: 08-54-2362Hgnaanjcf mammographyAvila Roberts MD Work Phone: Start: 92-50-4554Anusmyngycynvlq of right breastAvila Roberts MD Work Phone: Start: 38-60-3426Bydgw Strep (POC)Start: 10-19-2022 Microscopic observation [Identifier] in Cervix by Cyto stainCorey Bebeto DO Work Phone: Start: 51-98-1475Cozy cerv/vag auto thin layer prep mnl screenCorey Bebeto DO Work Phone: Start: 88-79-2055Tctrnizosof observation [Identifier] in Cervix by Cyto stainCorey Bebeto DO Work Phone: Start: 62-41-9063Nhsvmnei of Products of Conception, External ApproachDR KESHAWN TATE .Start: 36-86-7694Hbitji Perineum Muscle, Open ApproachDR KESHAWN TATE .Start: 73-79-5479Kcbqqwec of Amniotic Fluid, Therapeutic from Products of Conception, Via Natural or Artificial OpeningDR KESHAWN TATE . Plan of Treatment DateCare ActivityDetailAuthorStart: 14-99-3665Sikqpjyzn for malignant neoplasm of cervixNOMS HealthcareStart: 05-11-0546Lhtlwhinf for malignant neoplasm of cervixNOMS HealthcareStart: 11-14-2025 End: 61-88-6797Ahoxmud encounter procedureNOMS BCP OBStart: 11-08-2025 End: 03-65-8976Otolywj encounter procedureNOMS SWS DERMStart: 08-05-2025 Screening for malignant neoplasm of cervixNOMS HealthcareStart: 04-05-2025 End: 74-51-0727Yeuybat encounter tzxwdvhgi54/19/2025 1:20 PM EST Routine [facility] [address] [place], [id number] Keshawn Ttae, DO [address] [place] [address] [facility] Patrick OBGYNStart: 03-03-2025 End: 13-94-3554XWH/RhABO/Rh Lab Routine Missed menses , unspecified gestational age ([facility]) Expected: 03/03/2025 (Approximate), Expires: 03/03/2026[facility] HealthcareComment on above:Expected: 03/03/2025 (Approximate), Expires: 03/03/2026Start: 03-03-2025 End: 86-79-6376Ttrlq type and Indirect antibody screen panel - BloodType and screen Lab Routine Missed menses , unspecified gestational age ([facility]) Expected: 03/03/2025 (Approximate), Expires: 03/03/2026[facility] Healthcare Comment on above:Expected: 03/03/2025 (Approximate), Expires: 03/03/2026Start: 03-03-2025 End: 25-78-1517Mghnt of abuse panel - Urine by Screen methodRapid drug screen, urine Lab Routine , unspecified gestational age ([facility]) Encounter for supervision of normal first in first trimester ([facility]) Expected: 03/03/2025 (Approximate), Expires: 03/03/2026NOTX HealthcareComment on above: Expected: 03/03/2025 (Approximate), Expires: 03/03/2026Start: 02-21-2025 End: 73-19-0831TF Pelvis transvaginalUS OB transvaginal Imaging Routine Missed menses Positive urine test ([facility]) Expected: 02/21/2025, Expires: 05/24/2025[facility] Healthcare Work Phone: comment on above:Expected: 02/21/2025, Expires: 05/24/2025Start: 56-66-0839Qbyaimyeu vaccinationNOTX HealthcareStart: 12-28-2024 End: 20-42-0151Xiekaqb encounter kcrulcvsr60/13/2025 8:30 AM EDT Office Visit [facility] [address] [place] [address] Nelda Miramontes PA [address] [place] [address] [facility] SWS DERMStart: 11-07-2024 End: 45-93-8757Kgudrhp encounter procedureNOMS SWS DERMComment on above:Arrived Start: 10-31-2024 End: 10-33-7183Irmrukd encounter procedureNOMS BCP OBComment on above:Arrived Start: 07-29-2024 End: 23-15-7377hcfmqzosmx33/14/2025 10:00 AM EDT Initial [facility] [address] [place] [address] [facility] BCP OBStart: 07-29-2024 End: 35-73-0092Joyseuiofjsy / ancillary services cmvpfiqhic99/ 9:30 AM EDT Ancillary Procedure [facility] [address] [place] [address] [place] [address] [facility] OBStart: 84-75-8967Lijwwemky vaccination Influenza Vaccine (#1)[facility] HealthcareStart: 68-21-0299Abnfhekzy for malignant neoplasm of cervixHPV/CotestNOMS HealthcareBacteria identified in Urine by CultureUrine culture Microbiology Routine Missed menses Ordered: 03/03/2025[facility] HealthcareComment on above:Ordered: 03/03/2025BC W Auto Differential panel - BloodCBC and differential Lab Routine Missed menses , unspecified gestational age ([facility]) Ordered: 03/03/2025[facility] HealthcareComment on above: Ordered: 03/03/2025ytology Cervical or vaginal smear or scraping studyPap Smear Pathology and Cytology Routine Well woman exam with routine gynecological exam Ordered: 10/31/2024[facility] Healthcare Work Phone: comment on above:Ordered: 10/31/2024 End: 67-32-8165xIY, quantitative, pregnancyhCG, quantitative, Lab Routine Miscarriage 6 Occurrences starting 08/03/2024 until 08/03/2025[facility] Healthcare Work Phone: comment on above:6 Occurrences starting 08/03/2024 until 08/03/2025Hemoglobin A1c/Hemoglobin.total in BloodHemoglobin A1c Lab Routine Missed menses , unspecified gestational age ([facility]) Ordered: 03/03/2025[facility] HealthcareComment on above:Ordered: 03/03/2025Hepatitis B virus surface Ag [Presence] in Serum or Plasma by ImmunoassayHepatitis B surface antigen Lab Routine Missed menses , unspecified gestational age ([facility]) Ordered: 03/03/2025[facility] HealthcareComment on above:Ordered: 03/03/2025 Hepatitis C virus Ab [Presence] in Serum or Plasma by ImmunoassayHepatitis C antibody Lab Routine Missed menses , unspecified gestational age ([facility]) Ordered: 03/03/2025[facility] HealthcareComment on above:Ordered: 03/03/2025 HIV-1/HIV-2 antigen/antibody combination immunoassayHIV-1 and HIV-2 antibodies Lab Routine Missed menses , unspecified gestational age ([facility]) Ordered: 03/03/2025[facility] HealthcareComment on above:Ordered: 03/03/2025Human papilloma virus DNA [Presence] in Unspecified specimen by Probe with amplificationHPV DNA probe, amplified Microbiology Routine Well woman exam with routine gynecological exam Ordered: 10/31/2024[facility] InstituteComment on above: Ordered: 10/31/2024Reagin Ab [Presence] in Serum by RPRRPR Lab Routine Missed menses , unspecified gestational age ([facility]) Ordered: 03/03/2025[facility] InstituteComment on above:Ordered: 03/03/2025Rubella antibody, IgGRubella antibody, IgG Lab Routine Missed menses , unspecified gestational age ([facility]) Ordered: 03/03/2025[facility] HealthcareComment on above:Ordered: 03/03/2025 [facility] Pelvis transvaginalUS OB transvaginal Imaging Routine Missed menses Positive urine test ([facility]) 59:25 AM [facility] Immunizations Immunization DateImmunizationNotesCare CjqidqrpAqhcbxco17-18-7134mqnbtjeqt virus vaccine, unspecified formulationKeshawn Tate DO Work Phone: [facility] InstituteIqdikbkvxp41-97-9382tcvywakbjc, tetanus toxoids and acellular pertussis vaccine, unspecified formulationCincinnati Va Medical Center Payers DatePayer CategoryPayerPolicy [id number] Health InsuranceMEDICAL MUTUAL Member Subscriber Plan / Payer (Effective 2024- Present) Name: Julia [place] Relation to Subscriber: Spouse Name: JEROMEKARLA Date of : 1989 Address: [address] [place] [id number] Payer ID: Not on file Type: Not on file Address: [address] [id number] [id number] 2.16.840.1.884055.3.57[id number] 2.16.840.1.370214.3.57[id number] 2.840.1.813120.3.57[id number] 2.16840.1.786890.3.57[id number] 2.840.1.202561.3.57[id number] 2.840.1.579791.3.57[id number] 2.840.1.724115.3.57[id number] 2.840.1.243820.3.57[id number] 2.840.1.353412.3.579.[id number] 2.840.1.821480.3.57[id number] 2.840.1.466203.3.57[id number] 2.840.1.656405.3.579.2.[id number] 2.16840.1.194719.3.57[id number] 2.840.1.413194.3.579.[id number] 2.16.840.1.146947.3.57[id number] 2..840.1.419126.3.57[id number] 2.840.1.765085.3.57[id number] 2.840.1.127602.3.579.2.600575-33-6069Sobhkrc69012529872216-51-1150Ydrkifd C4C768N4881093-59-1568GxtvhnsJ1K424232141IitdyiqOlqmzp /VTG5B0896391DF u45ejk58-0757-995h-[id number] 2.840.1.7[id number] 2.0.1.398718.3.579.2.531 Social History DateTypeDetailFacilityStart: 11-20-2022 End: 35-27-9427Flgjrrr smoking status NHISNever smoked tobacco (finding) [facility]: 40-42-6235Vqv Assigned At BirthFemale [facility] Centertart: 05-24-2024 End: 28-00-5472TpmHdvwuj (finding)[facility]art: 02-51-2754Wukklwb use and exposureSmokeless tobacco non-userNOMS Healthcare Start: 12-23-2023 End: 18-78-9573Inqthbgrr beverage intakeCurrent drinker of alcohol (finding)[facility]S HealthcareStart: 06-29-2023 End: 59-57-3811Dytjamd of Social functionNOMS HealthcareStart: 06-29-2023 End: 41-48-0722Lvbxdudrdgk, Afraid, Rape, and Kick questionnaire [HARK]NOMS HealthcareWithin the last year, have you been afraid of your partner or ex-partner?NoNOMS HealthcareDo you belong to any clubs or organizations such as pentecostalism groups, unions, fraternal or athletic groups, or school groups?YesNOMS HealthcareAre you now , , , , never or living with a partner?MarriedNOMS HealthcareHow often to you have a drink containing alcohol?2-4 times a monthNOMS HealthcareHow many standard drinks containing alcohol do you have on a typical day?1 or 2NOMS HealthcareHow often do you have 6 or more drinks on 1 occasion?NeverNOMS HealthcareHow hard is it for you to pay for the very basics like food, housing, medical care, and heating Not very hardNOMS HealthcareDo you feel stress - tense, restless, nervous, or anxious, or unable to sleep at night because yourmind is troubled all the time - these days [OSQ]Not at allNOMS Healthcare(I/We) worried whether (my/our) food would run out before (I/we) got money to buy more.Never trueNOTX Healthcare Start: [id number] the past 12 months, has lack of transportation kept you from medical appointments or from getting medications?NoNBEAVER COUNTY MEMORIAL [facility]AV[facility] HealthcareStart: 07-22-2780Jgrrldk Commentoccasiona alcohol use ; caffeine: noneNOTX Healthcare Start: 03-72-9848Pdg assigned at birthNot on fileNOTX HealthcareStart: [id number] Healthcare Clinical Notes 08-19-2021 to 03-03-2025 Note Date & [id number] History of Present illness Narrative* Meghan Edge MA - 03/03/2025 9:30 AM [...] Vitals: Estimated body mass index is 22.96 kg/m as calculated from the following: Height as [...] urinalysis dipstick manually resulted Positive urine test ([facility]) - US OB transvaginal; Future Amenorrhea 9 weeks gestation of ([facility]) First trimester ([facility]) H/O LEEP H/O: 1 miscarriage , unspecified gestational age ([facility] - Type and screen; Future - ABO/Rh; Future - CBC and differential - Hemoglobin A1c - RPR - Rubella antibody, IgG - Hepatitis B surface antigen - Hepatitis C antibody - HIV-1 and HIV-2 antibodies - Rapid drug screen, urine; Future Encounter for supervision of normal first in first trimester ([facility]) - Rapid drug screen, urine; Future Nurse Note: Pt unsure of [place] billion to one. Pt was advised if she does desire to do [place] to have both labs and [place] drawn together. PVU. Pt does have a [...] by: Meghan Edge MA documented in this encounterFreeman Heart [id number] History of Present illness Narrative* MARK Ann - 11/07/2024 3:30 PM EDT Skin Check Location: Patient requests a full body skin examination Dermatologic history: history of atypical mole(s), no history of skin cancer, no history of atypical moles, no family history of melanoma Last visit: 1 year ago Established patient All pertinent medical history, medications, and allergies were reviewed. General Exam: alert, oriented to person, place, and time, normal affect, well appearing Unaccompanied Areas not examined despite medical recommendation: Scalp, Examined Right leg Examined Head, Face Examined Left leg Examined Neck Examined Right foot Examined Chest Examined Left foot Examined Back Examined Buttocks Examined Patient kept underwear on Abdomen Examined Digits,nails: Examined Right arm Examined Patient wearing nail romanian, Denies dark streaks under finger nails, Denies darkstreaks on toenails Left arm Examined Lymphatics: Not examined Hands Examined Skin Exam 1. MELANOCYTIC NEVUS OF TRUNK Generalized Scattered benign appearing, regular brown to light brown melanocytic papules and macules with similar morphology Counseled regarding these benign growths. Rarely, a nevus can develop into malignant melanoma, so any changing nevi should be promptly re-evaluated. Discussed ABCD's of melanoma, literature provided. 2. LENTIGO SIMPLEX (5) Head - Anterior (Face), Left Arm, Left Shoulder - Posterior, Right Arm, Right Shoulder - Posterior Scattered whipple macules in sun-exposed areas. The patient was informed that lentigines are benign pigmented lesions that occur on sun-exposed andsun-damaged skin. No treatment is necessary. Recommended regular use of broad spectrum sunscreen SPF 30 or higher, literature provided. 3. HISTORY OF REMOVAL OF NEVUS Left Flank Small brown in color spot at biopsy site. Patient reports it has looked the same since site healed from biopsy. If nevus returns and bothersome it could be further removed with a different method. Notify office if it returns. Next Visit: 1 year skin exam documented in this encounterFreeman Heart [id number] History of Present illness Narrative* Meghan Edge MA - 10/31/2024 8:30 AM EDT Reason for Appointment: Patient ID: Julia Colorado is a 33 y.o. female who presents for Gynecologic Exam Patient presents today for Annual Exam. MEDICATIONS Current Outpatient Medications Medication Instructions ibuprofen 800 MG tablet TAKE 1 TABLET BY MOUTH EVERY 8 HOURS FOR 14 DAYS NEEDED FOR PAIN MULTIPLE VITAMIN PO Oral ALLERGIES No Known Allergies PROBLEMS Active Ambulatory Problems Diagnosis Date Noted No Active Ambulatory Problems Resolved Ambulatory Problems Diagnosis Date Noted No Resolved Ambulatory Problems Past Medical History: Diagnosis Date History of abnormal cervical Pap smear LGSIL of cervix of undetermined significance Nonsmoker HISTORY PAST MEDICAL HISTORY SOCIAL HISTORY Past Medical History: Diagnosis Date History of abnormal cervical Pap smear 06/2021 Colpo -negative for dysplasia, HPV+ 05/08/21, LGSIL Rpt Pap LGSIL 02/24/2019 PAP LGSIL LGSIL of cervix of undetermined significance Nonsmoker Social History Tobacco Use Smoking status: Never Smokeless tobacco: Never Substance Use Topics Alcohol use: Yes Comment: occasiona alcohol use ; caffeine: none Drug use: Never FAMILY HISTORY Family History Problem Relation Name Age of Onset No Known Problems Sister Other (history of blood clots) Maternal Grandmother Arthritis Maternal Grandmother SURGICAL HISTORY Past Surgical History: Procedure Laterality Date CERVICAL BIOPSY W/ LOOP ELECTRODE EXCISION 12/12/2022 D&C FIRST TRIMESTER / TX INCOMPLETE / MISSED / SEPTIC / INDUCED 07/21/2024 PAP SMEAR 08/05/2022 LGSIl REVIEW OF SYSTEMS Review of Systems: Review of Systems Constitutional: Negative. HENT: Negative. Eyes: Negative. Respiratory: Negative. Cardiovascular: Negative. Gastrointestinal: Negative. Genitourinary: Negative. Musculoskeletal: Negative. Skin: Negative. Neurological: Negative. All other systems reviewed and are negative. Hematological: Negative. Endocrine: Negative. Allergic/Immunologic: Negative. OBJECTIVE Objective: Physical Exam Constitutional: Appearance: Normal appearance. She is well-developed. Genitourinary: Vulva normal. Right Adnexa: not tender and no mass present. Left Adnexa: not tender and no mass present. No cervical discharge. Breasts: Breasts are soft. Right: Normal. Left: Normal. HENT: Head: Normocephalic. Nose: Nose normal. Mouth/Throat: Mouth: Mucous membranes are moist. Cardiovascular: Rate and Rhythm: Normal rate and regular rhythm. Pulmonary: Effort: Pulmonary effort is normal. Breath sounds: Normal breath sounds. Abdominal: General: Bowel sounds are normal. There is no distension. Palpations: Abdomen is soft. Tenderness: There is no abdominal tenderness. There is no guarding or rebound. Musculoskeletal: General: No swelling. Normal range of motion. Cervical back: Normal range of motion. Right lower leg: No edema. Left lower leg: No edema. Neurological: General: No focal deficit present. Mental Status: She is alert and oriented to person, place, and time. Skin: General: Skin is warm and dry. Psychiatric: Mood and Affect: Mood normal. Behavior: Behavior normal. Vitals and nursing note reviewed. Exam conducted with a recreation therapy teacher present. Vitals: Estimated body mass index is 22.96 kg/m as calculated from the following: Height as of 12/25/22: 5' 5 . Weight as of this encounter: 138 lb. BP: 118/72 Patient's last menstrual period was 10/19/2024 (exact date). ASSESSMENT & PLAN ICD-10-CM 1. Well woman exam with routine gynecological exam Z01.419 Pap Smear HPV DNA probe, amplified Annual Exam: Patient presents today for an annual exam. Patient states she is doing well and has no complaints. Pap was obtained without difficulty. Orders Placed This Encounter Procedures HPV DNA probe, amplified Follow Up: Patient is to return in one year for annual unless needed otherwise. Documented by Meghan Edge MA on behalf of: Keshawn Tate DO documented in this encounterFreeman Heart [id number] History of Present illness Narrative* Anabella Garcia, COMMIS CHEF - 08/03/2024 2:30 PM EDT Reason for Appointment: Patient ID: Julia Colorado is a 33 y.o. female who presents for Post-op Visit Patient presents today for Follow up appointment to discuss results. MEDICATIONS Current Outpatient Medications Medication Instructions MULTIPLE VITAMIN PO Oral ALLERGIES No Known Allergies PROBLEMS Active Ambulatory Problems Diagnosis Date Noted No Active Ambulatory Problems Resolved Ambulatory Problems Diagnosis Date Noted No Resolved Ambulatory Problems Past Medical History: Diagnosis Date History of abnormal cervical Pap smear LGSIL of cervix of undetermined significance Nonsmoker HISTORY PAST MEDICAL HISTORY SOCIAL HISTORY Past Medical History: Diagnosis Date History of abnormal cervical Pap smear 06/2021 Colpo -negative for dysplasia, HPV+ 05/08/21, LGSIL Rpt Pap LGSIL 02/24/2019 PAP LGSIL LGSIL of cervix of undetermined significance Nonsmoker Social History Tobacco Use Smoking status: Never Smokeless tobacco: Never Substance Use Topics Alcohol use: Yes Comment: occasiona alcohol use ; caffeine: none Drug use: Never FAMILY HISTORY Family History Problem Relation Name Age of Onset No Known Problems Sister Other (history of blood clots) Maternal Grandmother Arthritis Maternal Grandmother SURGICAL HISTORY Past Surgical History: Procedure Laterality Date CERVICAL BIOPSY W/ LOOP ELECTRODE EXCISION 12/12/2022 D&C FIRST TRIMESTER / TX INCOMPLETE / MISSED / SEPTIC / INDUCED 07/21/2024 PAP SMEAR 08/05/2022 LGSIl REVIEW OF SYSTEMS Review of Systems: Review of Systems Constitutional: Negative. HENT: Negative. Eyes: Negative. Respiratory: Negative. Cardiovascular: Negative. Gastrointestinal: Negative. Genitourinary: Negative. Musculoskeletal: Negative. Skin: Negative. Neurological: Negative. All other systems reviewed and are negative. Hematological: Negative. Endocrine: Negative. Allergic/Immunologic: Negative. OBJECTIVE Objective: Physical Exam Constitutional: Appearance: Normal appearance. She is well-developed. Cardiovascular: Rate and Rhythm: Normal rate and regular rhythm. Pulmonary: Effort: Pulmonary effort is normal. Breath sounds: Normal breath sounds. Abdominal: General: Bowel sounds are normal. There is no distension. Palpations: Abdomen is soft. Tenderness: There is no abdominal tenderness. There is no guarding or rebound. Musculoskeletal: General: No swelling. Normal range of motion. Right lower leg: No edema. Left lower leg: No edema. Neurological: Mental Status: She is alert and oriented to person, place, and time. Skin: General: Skin is warm and dry. Psychiatric: Mood and Affect: Mood normal. Behavior: Behavior normal. Vitals and nursing note reviewed. Exam conducted with a recreation therapy teacher present. Vitals: Estimated body mass index is 23.2 kg/m as calculated from the following: Height as of 12/25/22: 5' 5 . Weight as of this encounter: 139 lb 6.4 oz. BP: 110/72 No LMP recorded. ASSESSMENT & PLAN ICD-10-CM 1. Postop check Z09 Pt presents for suction D&C follow up. Pt given quant level to have obtained to follow until less than 5. Pt to call office when will order progesterone suppositories. Pt voiced understanding. Documented by Anabella Garcia LPN on behalf of: Keshawn Tate DO documented in this encounterFreeman Heart [id number] Evaluation note* Diagnosis Onset Date Resolution Status Admit Date Sinusitis, acute maxillary acuteJanuary 2024 2:17pm [facility] Work Phone: 1(903) 297-104412-04-2024 Evaluation note* Diagnosis Onset Date Resolution Status Admit Date Anxiety about health acuteDecember 2023 11:01amLump of right breastacuteDecember 2023 11:01am [facility] Work Phone: 1(117) 767-401904-04-2022 NotePatient Education Materials Follows:Disease Bacterial Conjunctivitis, Adult Bacterial conjunctivitis is [...] infections that do not get better with dropsor ointment or that last more than 10 days. ? Cool, wet cloths placed on the eyes. ? Artificial tears used 2?6 times a day. Follow these instructions at home: Medicines ? Take or apply your antibiotic medicine as told by your doctor. Do not stop taking or applying theantibiotic even if you start to feel better. ? Take or apply [id number] and prescription medicines only as told by [...] provider. Document Revised: 08/23/2019 Document Reviewed: 12/08/2018 [employer] Patient Education ? 2020 [employer].[facility] No assessment information availableC[facility] Work Phone: Evaluation note* Diagnosis Onset Date Resolution Status Acute streptococcal pharyngitis acuteMass of left lower extremityacuteWellness examinationWVUMedicine [facility] Work Phone: Evaluation note* Diagnosis Postop check Follow-up examination, following unspecified surgery Miscarriage Unspecified spontaneous without mention of complication documented in this encounter [facility]* Diagnosis Well woman exam with routine gynecological exam Routine gynecological examination documented in this encounter [facility] HealthcareEvaluation note* Diagnosis Melanocytic nevus of trunk- Primary Benign neoplasm of skin of trunk, except scrotum Lentigo simplex Other dyschromia History of removal of nevus documented in this encounter [facility]* Diagnosis Missed menses Positive urine test ([facility]) Amenorrhea Absence of menstruation 9 weeks gestation of ([facility]) First trimester ([facility]) state, incidental H/O LEEP H/O: 1 miscarriage Personal history of other genital system and obstetric disorders , unspecified gestational age ([facility]) Encounter for supervision of normal first in first trimester ([facility]) documented in this encounter [facility] Healthcare Summary Purpose Family History Relationship Condition Age at Onset Recorded Date/T beryl Not Specified Heart disease Unknown HypertensionUnknownMyocardial infarctionUnknown Relationship Condition Age at Onset Recorded Date/T beryl maternal grandmother Heart disease Unknown HypertensionUnknownMyocardial infarctionUnknown Advance Directives Advance Directive Response Recorded Date/ Time Advance Directives No October 04 3:16pm Advance Directive Response Recorded Date/ Time Advance Directives No October 04 2:16pm Chief Complaint and Reason for Visit Chief Complaint sore throat, fever Chief Complaint sore throat, fever wellnessReason for VisitAcute streptococcal pharyngitis Mass of left lower extremity [...] infection, sinus pressure June 09, 2024 2:17pm Chief Complaint Admit Date N63.11 May 23, 2024 2: 25pm VIRTUAL, sinus infection, sinus pressure June 09, 2024 2:17pm Unknown July 20, 2024 10:2 8am Reason for Visit Admit Date Sinusitis, acute maxillary June 09, 2024 2:17pm Chief Complaint Admit Date N63.11 May 23, 2024 2: 25pm VIRTUAL, sinus infection, sinus pressure June 09, 2024 2:17pm Unknown July 20, 2024 10:2 8am chest congestion, cough, flu A July 3:15pm Additional Source Comments INFORMATION SOURCE (unrecogn ized section and content) DATE CREATED AUTHOR 01/07/2022 [facility] DATE CREATED AUTHOR AUTHOR'S ORGANIZ ATION 08/19/2022 [facility] DATE CREATED AUTHOR AUTHOR'S ORGANIZ ATION 07/22/2024 [facility] DATE CREATED AUTHOR AUTHOR'S ORGANIZ ATION 03/05/2025 [facility] EPIC Care Teams (unrecognized sec tion and content) Team Status: Active Member Role Status Dates Outreach Community Primary Care Provider Active Team Status: Inactive Member Role Status Dates Manuela Corado APRN Attending Provider Active S tart: October 05, 2023 End: October 05, 2023[facility] Care ProviderActiveStart: October 05, 2023 End: October 05, 2023 Team Status: Inactive Member Role Status Dates Avila Roberts MD Attending Provider Active St art: October 23, 2023 End: October 23, 2023[facility] ProviderActiveStart: October 23, 2023 End: October 23, 2023 Team Status: Active Member Role Status Dates Avila Roberts MD Primary Care Provider Active Team Status: Inactive Member Role Status Dates Avila Roberts MD Primary Care Provide r, Attending Provider Active Start: April 20, 2024 End: April 20, 2024 Team Status: Inactive Member Role Status Dates Avila Roberts MD Primary Care Provide r, Attending Provider Active Start: May 23, 2024 End: May 23, 2024 Team Status: Inactive Member Role Status Dates Avila Roberts MD Primary Care Provide r, Attending Provider Active Start: June 09, 2024 End: June 09, 2024Team MemberRelationshipSpecialtyStart DateEnd Date Avila Roberts MD [address] [place] [address] PCP - General11/17/22Team MemberRelationshipSpecialtyStart DateEnd Date Avila Roberts MD [address] [place] [facility] [place] [address] PCP General11/17/22 Team Status: Active Member Role Status Dates Avila Roberts MD Primary Care Provider Active Start: July 11, 2024 Rocio Loboending ProviderActiveStart: July 11, 2024 Team Status: Active Member Role Status Dates Avila Roberts MD Primary Care Provider Active Start: July 13, 2024 Rocio Loboending ProviderActiveStart: July 13, 2024 Team Status: Active Member Role Status Dates Avila Roberts MD Primary Care Provider Active Start: July 15, 2024 Rocio Loboending ProviderActiveStart: July 15, 2024 Team Status: Active Member Role Status Dates Avila Roberts MD Primary Care Provider Active Start: July 17, 2024 Rocio Loboending ProviderActiveStart: July 17, 2024 Team Status: Active Member Role Status Dates Avila Roberts MD Primary Care Provide r, Attending Provider Active Start: July 19, 2024 Team Status: Inactive Member Role Status Dates Avila Roberts MD Primary Care Provider Active Start: July 20, 2024 End: July 20orejeffrey Tate , DOAttending ProviderActiveStart: July 20, 2024 End: July 20, 2024Team MemberRelationshipSpecialtyStart DateEnd Date Avila Roberts MD [address] [place] [facility] [place] [address] PCP - General11/17/22 Team Status: Active Member Role Status Dates Avila Roberts MD Primary Care Provider Active Start: August 03, 2024 Keshawn Tate , DOAttending ProviderActiveStart: August 03, 2024 Team Status: Inactive Member Role Status Dates Avila Roberts MD Primary Care Provide r, Attending Provider Active Start: August 04, 2024 End: August 04, 2024Team MemberRelationshipSpecialtyStart DateEnd Date Avila Roberts MD PCP - General11/17/22Team MemberRelationshipSpecialtyStart DateEnd Date Avila Roberts MD [address] [place] [facility] [place] [phone] PCP - General11/17/22Team MemberRelationshipSpecialtyStart DateEnd Date Avila Roberts MD [address] [place] [facility] [place] [phone] PCP - General11/17/22Team MemberRelationshipSpecialtyStart DateEnd Date Avila Roberts MD [address] [place] [facility] [place] [id number] PCP - General11/17/22Team MemberRelationshipSpecialtyStart DateEnd Date Avila Roberts MD [address] [place] [phone] PCP - General11/17/22Team MemberRelationshipSpecialtyStart DateEnd Date Avila Roberts MD [address] [place] [facility] [place] [phone] PCP - General11/17/22 Goals (unrecognized section and content) Goals may be documented in a n alternate sectionGoals may be documented in an alternate sectionGoals may be documented in an alternate sectionGoals may be documented in an alternate sectionGoals may be documented in an alternate sectionGoals may be documented in an alternate section Reason for Visit (unrecogniz ed section and content) ReasonCommentsPost-op VisitReasonCommentsGynecologic ExamReasonCommentsSkin CheckReasonCommentsAmenorrhea FOR RECORDS PERTAINING TO PATIENTS WHO ARE [...] BE BASED ON THE PRIMARY CLINICAL RECORDS. [facility] [employer] [facility]. provides no warranty or guarantee of the accuracy or completeness of information in this document.
== END 2025-04-25 08:47 | disposition home or self-care (01) ==
LOC: LAB 08:47
PROVIDERS: PCP Family Medicine; Visit Provider Obstetrics & Gynecology
DX: Z34.92 Encounter for supervision of normal pregnancy, unspecified, second trimester (principal); Z3A.14 14 weeks gestation of pregnancy
CPT/HCPCS: 36415; 82105